=== PATIENT | male | born 1950 | race American Indian/Alaskan Native ===

== ENCOUNTER 2017-04-19 07:09 | Emergency (ER) | payer SELFPAY ==
[2017-04-19] MEDS ORDERED: ASPIRIN PO ONE (07:20)
[2017-04-19 07:23] VITALS: BP 151/88
[2017-04-19 08:11] LABS: Basophils % (Auto) 0.5 % (0.0-1.8); Eosinophils % (Auto) 0.9 % (0.0-4.3); Hematocrit 42.1 % (35.5-45.6); Hemoglobin 14.1 gm/dl (11.8-15.2); Lymphocytes # (Auto) 1.9 K/mm3 (1.2-5.4); Lymphocytes % (Auto) 41.3 % (13.4-35.0); Mean Corpuscular HGB Conc 34 % (32-34); Mean Corpuscular Hemoglobin 29 pg (28-32); Mean Corpuscular Volume 86 fl (84-94); Monocytes # (Auto) 0.5 K/mm3 (0.0-0.8); Monocytes % (Auto) 11.1 % (0.0-7.3); Platelet Count 203 K/mm3 (140-440); Red Blood Count 4.88 M/mm3 (3.65-5.03); Red Cell Distribution Width 13.6 % (13.2-15.2)
[2017-04-19 08:18] LABS: BUN/Creatinine Ratio 11; Blood Urea Nitrogen 9 mg/dL (9-20); Calcium 9.2 mg/dL (8.4-10.2); Hemolysis Index 15
== END 2017-04-19 07:45 | disposition left against medical advice (07) ==
LOC: ED 07:09
DX: R07.89 Other chest pain (principal); Z53.21 Procedure and treatment not carried out due to patient leaving prior to being seen by health care provider
CPT/HCPCS: 36415; 80048; 84484; 85025; 93005; 93010

== ENCOUNTER 2017-06-26 17:39 | Emergency (ER) | payer SELFPAY ==
[2017-06-26 17:51] VITALS: BP 165/119
[2017-06-26 18:23] LABS: Basophils # (Auto) 0.1 K/mm3 (0.0-0.1); Basophils % (Auto) 0.9 % (0.0-1.8); Eosinophils % (Auto) 0.1 % (0.0-4.3); Hematocrit 50.3 % (35.5-45.6); Hemoglobin 16.2 gm/dl (11.8-15.2); Lymphocytes # (Auto) 1.9 K/mm3 (1.2-5.4); Lymphocytes % (Auto) 30.1 % (13.4-35.0); Mean Corpuscular HGB Conc 32 % (32-34); Mean Corpuscular Hemoglobin 28 pg (28-32); Mean Corpuscular Volume 88 fl (84-94); Monocytes # (Auto) 0.7 K/mm3 (0.0-0.8); Monocytes % (Auto) 11.7 % (0.0-7.3); Platelet Count 223 K/mm3 (140-440); Red Blood Count 5.75 M/mm3 (3.65-5.03); Red Cell Distribution Width 13.2 % (13.2-15.2)
[2017-06-26 18:43] LABS: BUN/Creatinine Ratio 15; Blood Urea Nitrogen 16 mg/dL (9-20); Calcium 10.2 mg/dL (8.4-10.2); Hemolysis Index 13
== END 2017-06-26 17:54 | disposition left against medical advice (07) ==
LOC: ED 17:39
DX: R07.9 Chest pain, unspecified (principal); Z53.21 Procedure and treatment not carried out due to patient leaving prior to being seen by health care provider
CPT/HCPCS: 36415; 80048; 83880; 84484; 85025; 93005; 93010

== ENCOUNTER 2017-09-20 03:12 | Emergency (ER) | payer MEDICARE, OTHER ==
[2017-09-20] MEDS ORDERED: ASPIRIN PO ONE (03:54)
[2017-09-20 04:30] LABS: BUN/Creatinine Ratio 17; Blood Urea Nitrogen 20 mg/dL (9-20); Calcium 9.9 mg/dL (8.4-10.2); Hemolysis Index 4
[2017-09-20 04:48] LABS: Hematocrit 42.9 % (35.5-45.6); Hemoglobin 14.9 gm/dl (11.8-15.2); Mean Corpuscular HGB Conc 35 % (32-34); Mean Corpuscular Hemoglobin 30 pg (28-32); Mean Corpuscular Volume 87 fl (84-94); Platelet Count 202 K/mm3 (140-440); Red Blood Count 4.95 M/mm3 (3.65-5.03); Red Cell Distribution Width 13.9 % (13.2-15.2)
[2017-09-20 04:57] LABS: Basophils % (Auto) 0.3 % (0.0-1.8); Eosinophils % (Auto) 0.1 % (0.0-4.3); Lymphocytes % (Auto) 16.4 % (13.4-35.0); Monocytes # (Auto) 0.6 K/mm3 (0.0-0.8); Monocytes % (Auto) 9.9 % (0.0-7.3)
[2017-09-20 06:07] LABS: Amphetamine Screen,Urine PRESUMPTIVE NEGATIVE; Benzodiazepines Screen,Urine PRESUMPTIVE NEGATIVE; Cannabinoid Screen,Urine PRESUMPTIVE NEGATIVE; Methadone Screen,Urine PRESUMPTIVE NEGATIVE; Opiate Screen,Urine PRESUMPTIVE NEGATIVE
[2017-09-20] MEDS ORDERED: NITROSTAT SL ONE (06:23)
--- NOTE | 2017-09-20 06:27 | Emergency Department Report ---
HPI - General Chief Complaint: Chest Pain Time Seen by Provider: 09/20/17 06:10 - HPI HPI: Room 17 The patient is a 67-year-old male presented with a chief complaint of chest pain. The patient states last night while walking he developed a throbbing substernal chest pain that was constant in nature. Patient states he is uncertain if he got short of breath with the chest pain but admits to occasional diaphoresis. Patient denies nausea or vomiting. The patient currently gets his pain score of 2.5/10. The patient admits to cocaine use and states he last used it 2 days ago. The patient states he believes his last cardiac catheterization occurred approximate 4 years ago when he had a cardiac stent placed Location: Chest Duration: Constant since last night Quality: Throbbing Severity: 2.5/10 Modifying factors: [see above] Context: [see above] Mode of transportation: [not driving] ED Past Medical Hx - Past Medical History Hx Hypertension: Yes Hx Heart Attack/AMI: Yes Hx Congestive Heart Failure: Yes Hx COPD: Yes - Surgical History Hx Coronary Stent: Yes (2013) Hx Open Heart Surgery: Yes (2012) - Family History Family history: no significant - Social History Smoking Status: Current Every Day Smoker (1/3 pack per day) Substance Use Type: Cocaine, Marijuana - Medications Home Medications: Home Medications Medication Instructions Recorded Confirmed Last Taken Type AtorvaSTATin [Lipitor] 20 mg PO QHS tablet 03/08/17 Unknown Rx Bisacodyl [Dulcolax suppos] 10 mg OR QDAY PRN supp.rect 03/08/17 Unknown Rx Dibucaine 1% [Nupercainal] 1 applic OR Q6H PRN #2 tube 03/08/17 Unknown Rx Hydrocortisone 2.5% [Proctosol-Hc] 1 applic OR BID #60 tube 03/08/17 Unknown Rx ED Review of Systems ROS: Stated complaint: CHEST PAIN Other details as noted in HPI Constitutional: diaphoresis Eyes: denies: eye pain ENT: denies: throat pain Respiratory: shortness of breath (?) Cardiovascular: chest pain Endocrine: denies: unexplained weight loss Gastrointestinal: denies: nausea, vomiting Genitourinary: denies: dysuria Musculoskeletal: denies: back pain Skin: denies: change in color Neurological: denies: headache Physical Exam - Physical Exam Vital Signs: Vital Signs 09/20/17 09/20/17 09/20/17 03:31 03:46 05:53 Temperature 98.7 F 98.7 F Pulse Rate 113 H 105 H 88 Respiratory 18 16 13 Rate Blood Pressure 149/99 149/99 O2 Sat by Pulse 94 98 Oximetry 09/20/17 06:00 Temperature Pulse Rate 72 Respiratory 16 Rate Blood Pressure 120/86 O2 Sat by Pulse 94 Oximetry Physical Exam: GENERAL: The patient is well-developed well-nourished male sitting on stretcher not appearing to be in acute distress. [] HEENT: Normocephalic. Atraumatic. Extraocular motions are intact. Patient has moist mucous membranes. NECK: Supple. Trachea midline CHEST/LUNGS: Clear to auscultation. There is no respiratory distress noted. HEART/CARDIOVASCULAR: Regular. There is no tachycardia. There is no gallop rub or murmur. ABDOMEN: Abdomen is soft, nontender. Patient has normal bowel sounds. There is no abdominal distention. SKIN: There is no rash. There is no edema. There is no diaphoresis. NEURO: The patient is awake, alert, and oriented. The patient is cooperative. The patient has normal speech MUSCULOSKELETAL: There is no evidence of acute injury. ED Course Vital Signs 09/20/17 09/20/17 09/20/17 03:31 03:46 05:53 Temperature 98.7 F 98.7 F Pulse Rate 113 H 105 H 88 Respiratory 18 16 13 Rate Blood Pressure 149/99 149/99 O2 Sat by Pulse 94 98 Oximetry 09/20/17 06:00 Temperature Pulse Rate 72 Respiratory 16 Rate Blood Pressure 120/86 O2 Sat by Pulse 94 Oximetry ED Medical Decision Making - Lab Data Result diagrams: 09/20/17 04:02 09/20/17 04:02 Laboratory Tests 09/20/17 09/20/17 09/20/17 04:02 04:02 05:46 WBC 6.4 RBC 4.95 Hgb 14.9 Hct 42.9 MCV 87 MCH 30 MCHC 35 H RDW 13.9 Plt Count 202 Lymph % (Auto) 16.4 Villalba % (Auto) 9.9 H Eos % (Auto) 0.1 Baso % (Auto) 0.3 Lymph # 1.0 L [place]alba # 0.6 Eos # 0.0 Baso # 0.0 Seg Neutrophils % 73.3 H Seg Neutrophils # 4.6 Sodium 135 L Potassium 4.3 Chloride 96.8 L Carbon Dioxide 24 Anion Gap 19 BUN 20 Creatinine 1.2 Estimated GFR > 60 BUN/Creatinine Ratio 17 Glucose 123 H Calcium 9.9 Troponin T < 0.010 Urine Opiates Screen Presumptive negative Urine Methadone Screen Presumptive negative Ur Barbiturates Screen Presumptive negative Ur Phencyclidine Scrn Presumptive negative Ur Amphetamines Screen Presumptive negative U Benzodiazepines Scrn Presumptive negative U Marijuana (THC) Screen Presumptive negative - EKG Data -: EKG Interpreted by Me EKG shows normal: sinus rhythm Rate: tachycardia (103 bpm) - EKG Data When compared to previous EKG there are: no significant change Interpretation: unchanged when compared t (06/26/2017), LV[facility] - Radiology Data Radiology results: image reviewed (chest x-ray) interpreted by me: Chest x-ray-no definite focal infiltrates. No pneumothorax - Medical Decision Making I discussed with the patient at length my recommendation for admission to the hospital especially in light of his history of coronary artery disease and cocaine use. Patient verbalized understanding of increased morbidity and/or mortality should he leave the hospital AGAINST MEDICAL ADVICE. - Differential Diagnosis ACS, vasospasm, pericarditis, GERD Critical care attestation.: If time is entered above; I have spent that time in minutes in the direct care of this critically ill patient, excluding procedure time. ED Disposition Clinical Impression: Chest pain, Cocaine abuse Disposition: DC-07 LEFT AGAINST MED ADVICE Is pt being admited?: No Does the pt Need Aspirin: No Condition: Undetermined Instructions: Chest Pain (ED) Referrals: PRIMARY CARE, [Primary Care Provider] - 3-5 Days Time of Disposition: 06:48 (patient leaving AMA)
[2017-09-20 06:34] VITALS: BP 127/80
[2017-09-20] MEDS ORDERED: ASPIRIN ONE (06:34)
[2017-09-20 06:58] LABS: Cocaine Screen,Urine PRESUMPTIVE POSITIVE
--- NOTE | 2017-09-20 07:08 | XRay Report ---
FINAL REPORT EXAM: XR CHEST 1V AP HISTORY: chest pain TECHNIQUE: AP portable view(s) of the chest obtained. PRIORS: 03/05/2017 FINDINGS: No mediastinal shift. Cardiac silhouette is not enlarged. Overlying sternotomy wires. Diffuse interstitial prominence. No pneumothorax, effusion, or focal pulmonary opacity identified. No acute skeletal findings. IMPRESSION: No acute pulmonary finding identified.
== END 2017-09-20 06:53 | disposition left against medical advice (07) ==
LOC: ED 03:12
DX: R07.89 Other chest pain (principal); F14.10 Cocaine abuse, uncomplicated; I11.0 Hypertensive heart disease with heart failure; I50.9 Heart failure, unspecified; I25.2 Old myocardial infarction; J44.9 Chronic obstructive pulmonary disease, unspecified; F17.200 Nicotine dependence, unspecified, uncomplicated; F12.10 Cannabis abuse, uncomplicated; Z95.1 Presence of aortocoronary bypass graft
CPT/HCPCS: 36415; 71045; 80048; 80307; 84484; 85025; 93005; 93010; 99285

== ENCOUNTER 2017-11-26 20:10 | Inpatient (IN) | payer MEDICARE, OTHER ==
[2017-11-26] MEDS ORDERED: ASPIRIN PO ONE (21:10)
[2017-11-26] MEDS ORDERED: NITROSTAT SL ONE (21:10)
[2017-11-26] MEDS ORDERED: TYLENOL PO ONE (21:29)
[2017-11-26] MEDS ORDERED: ATIVAN IV ONE (21:40)
[2017-11-26 21:50] LABS: INR 1.4 (0.87-1.13)
[2017-11-26 21:51] LABS: Partial Thromboplastin Time 27.8 Sec. (24.2-36.6)
[2017-11-26 21:52] LABS: Hematocrit 48.2 % (35.5-45.6); Hemoglobin 15.7 gm/dl (11.8-15.2); Mean Corpuscular HGB Conc 33 % (32-34); Mean Corpuscular Hemoglobin 29 pg (28-32); Mean Corpuscular Volume 90 fl (84-94); Platelet Count 185 K/mm3 (140-440); Red Blood Count 5.35 M/mm3 (3.65-5.03)
[2017-11-26 21:56] LABS: Bilirubin,Urine NEG (Negative); Blood,Urine NEG (Negative); Color,Urine Amber (Yellow); Mucus,Urine 2+ /HPF; Sperm,Urine 3+ /HPF (NP)
--- NOTE | 2017-11-26 21:56 | XRay Report ---
FINAL REPORT PROCEDURE: XR CHEST 1V AP TECHNIQUE: Chest radiograph anteroposterior view. CPT 97262 HISTORY: chest pain COMPARISON: 09/20/2017 FINDINGS: Heart: Normal. There has been open heart surgery. Mediastinum/Vessels: Normal. Lungs/Pleural space: There is advanced COPD. There are no infiltrates, effusions or pneumothoraces.. Bony thorax: No acute osseous abnormality. Life support devices: None. IMPRESSION: No acute cardiopulmonary abnormality.
[2017-11-26 22:05] LABS: BUN/Creatinine Ratio 11; Blood Urea Nitrogen 13 mg/dL (9-20); Calcium 10.4 mg/dL (8.4-10.2); Hemolysis Index 8
[2017-11-26 22:12] LABS: Amphetamine Screen,Urine PRESUMPTIVE NEGATIVE; Benzodiazepines Screen,Urine PRESUMPTIVE NEGATIVE; Cannabinoid Screen,Urine PRESUMPTIVE NEGATIVE; Methadone Screen,Urine PRESUMPTIVE NEGATIVE; Opiate Screen,Urine PRESUMPTIVE NEGATIVE
[2017-11-26 22:44] LABS: Cocaine Screen,Urine PRESUMPTIVE POSITIVE
--- NOTE | 2017-11-26 23:22 | Emergency Department Report ---
HPI - General Chief Complaint: Dizziness Time Seen by Provider: 11/26/17 21:01 - HPI HPI: The patient is a 67-year-old male who presents for evaluation of chest pain. The patient reports constant midsternal moderate in severity chest pain for the past one day, exacerbated with coughing. He admits to binging on cocaine, and concern for heart injury due to his drug use. The patient denies trauma to chest, fever, hemoptysis, unilateral leg swelling, recent immobilization, ED Past Medical Hx - Past Medical History Hx Hypertension: Yes Hx Heart Attack/AMI: Yes Hx Congestive Heart Failure: Yes Hx COPD: Yes - Surgical History Hx Coronary Stent: Yes (2013) Hx Open Heart Surgery: Yes (2012) Additional Surgical History: heart Bypass - Social History Smoking Status: Current Every Day Smoker Substance Use Type: Cocaine - Medications Home Medications: Home Medications Medication Instructions Recorded Confirmed Last Taken Type AtorvaSTATin [Lipitor] 20 mg PO QHS tablet 03/08/17 Unknown Rx Bisacodyl [Dulcolax suppos] 10 mg ID QDAY PRN supp.rect 03/08/17 Unknown Rx Dibucaine 1% [Nupercainal] 1 applic ID Q6H PRN #2 tube 03/08/17 Unknown Rx Hydrocortisone 2.5% [Proctosol-Hc] 1 applic ID BID #60 tube 03/08/17 Unknown Rx ED Review of Systems ROS: Stated complaint: CHEST PAIN Other details as noted in HPI Constitutional: denies: fever ENT: denies: throat or neck pain Respiratory: denies: cough, reports shortness of breath Cardiovascular: Reports chest pain Endocrine: denies unexplained weight loss or gain Gastrointestinal: denies: abdominal pain, nausea Genitourinary: denies: dysuria Musculoskeletal: denies: leg swelling Skin: denies: rash Neurological: denies: headache Hematological/Lymphatic: denies: easy bleeding or easy bruising Psych: denies sadness or hopelessness Physical Exam - Physical Exam Vital Signs: Vital Signs 11/26/17 11/26/17 11/26/17 20:23 20:34 20:46 Temperature 98.3 F Pulse Rate 69 70 Respiratory 17 16 Rate Blood Pressure 94/67 O2 Sat by Pulse 97 92 97 Oximetry 11/26/17 11/26/17 11/26/17 21:00 21:57 22:00 Temperature Pulse Rate 74 73 Respiratory 11 L 20 Rate Blood Pressure 94/59 94/59 116/86 O2 Sat by Pulse 100 95 96 Oximetry Physical Exam: General: well-nourished, well-developed, no acute distress Head: Normocephalic, atraumatic Eyes: normal sclera ENT: Mucous membranes are pink and moist Neck: trachea midline, neck supple, No neck stiffness, no cervical adenopathy Respiratory: Breath sounds equal bilaterally, no wheezing, rales, or rhonchi Cardio: S1 and S2 present, no murmurs, rubs, gallops, capillary refill is brisk Abdomen: Normoactive bowel sounds, soft abdomen, no rigidity, no guarding or rebound tenderness Chest WALL/Back: No tenderness to palpation of the chest wall, no CVA tenderness with percussion Musc: No pitting edema Skin: Diaphoretic Neuro: no facial drooping, normal speech Psych: Normal affect ED Course Vital Signs 11/26/17 11/26/17 11/26/17 20:23 20:34 20:46 Temperature 98.3 F Pulse Rate 69 70 Respiratory 17 16 Rate Blood Pressure 94/67 O2 Sat by Pulse 97 92 97 Oximetry 11/26/17 11/26/17 11/26/17 21:00 21:57 22:00 Temperature Pulse Rate 74 73 Respiratory 11 L 20 Rate Blood Pressure 94/59 94/59 116/86 O2 Sat by Pulse 100 95 96 Oximetry ED Medical Decision Making - Lab Data Result diagrams: 11/26/17 21:26 11/26/17 21:26 - Medical Decision Making The patient was seen and examined by myself. The patient is placed on a secured entrance monitor and continuous pulse ox. On initial evaluation, the patient was found to be in no distress. EKG was negative for findings suggestive of acute cardiac infarct. The patient is given pain medicine. The patient is given an aspirin and a nitroglycerin tablet. Labs and imaging are obtained. Chest x-ray is negative for pneumothorax, focal consolidation, pulmonary vascular congestion, pleural effusion, or other obvious acute cardiopulmonary disease process. Lab results were non-revealing including negative troponin, WBC, hemoglobin, hematocrit, electrolytes, renal function. The patient was reevaluated and reported that their symptoms were improved. As the patient has chest pain and risk factors for development of acute coronary event, the patient will be admitted for close cardiopulmonary monitoring, serial troponins , and evaluation by cardiology. The physician on-call was contacted. They presented to the emergency department and evaluated the patient. They agreed to admit the patient. The ED admit order was placed. The patient was admitted in guarded condition. Critical care attestation.: If time is entered above; I have spent that time in minutes in the direct care of this critically ill patient, excluding procedure time. ED Disposition Clinical Impression: Acute chest pain, Cocaine abuse Disposition: DC09 OP ADMIT IP TO THIS HOSP Is pt being admited?: Yes Does the pt Need Aspirin: Yes Condition: Fair Time of Disposition: 23:22
[2017-11-27] MEDS ORDERED: SODIUM CHLORIDE FLUSH SYRINGE 10 ML IV PRN (00:03)
[2017-11-27] MEDS ORDERED: MORPHINE IV PRN (00:03)
[2017-11-27] MEDS ORDERED: TYLENOL PO PRN (00:03)
[2017-11-27] MEDS ORDERED: ZOFRAN IV PRN (00:03)
[2017-11-27] MEDS ORDERED: NITROSTAT SL PRN (00:11)
[2017-11-27 00:44] VITALS: BP 100/71
[2017-11-27] MEDS ORDERED: SENOKOT PO SCH (01:00)
[2017-11-27] MEDS: NITRO-BID 2% TP SCH ×2 (01:30→06:43)
--- NOTE | 2017-11-27 04:06 | History and Physical Report ---
<RODY BRADY - Last Filed: 11/27/17 03:41> History of Present Illness Date of examination: 11/27/17 Date of admission: 11/27/17 00:03 Chief complaint: 11/27/2017 History of present illness: Pt is a 67-year-old male with PMHx of CHF, COPD, CAD/DC s/p stent placement and CABG 2012 who presents to the ER for c/p chest pain for 1 day. Pt states the the chest pain started suddenly, it is a constant, moderate pain, located in the midsternal area which exacerbated with coughing. Pt admits to 3 days of cocaine binge before the pain started, he reports anxiety and palpitation due to cocaine use, he denies SOB, denies diaphoresis, denies nausea, denies vomiting, denies headache or dizziness, denies fever or chills. Pt has an extensive history of heart disease, prior DC and heart surgery, his EKG shows LVH, non-specific T abnormalities, ST elevation lateral leads, consider anterior DC, first CE was negative, pt is admitted for further evaluation and treatment. Medications and Allergies Allergies Allergy/AdvReac Type Severity Reaction Status Date / Time bee venom protein (honey bee) Allergy Shortness Verified 06/26/17 17:46 of Breath iv contrast Allergy Shortness Uncoded 06/26/17 17:46 of Breath Home Medications Medication Instructions Recorded Confirmed Last Taken Type AtorvaSTATin [Lipitor] 20 mg PO QHS tablet 03/08/17 Unknown Rx Bisacodyl [Dulcolax suppos] 10 mg NM QDAY PRN supp.rect 03/08/17 Unknown Rx Dibucaine 1% [Nupercainal] 1 applic NM Q6H PRN #2 tube 03/08/17 Unknown Rx Hydrocortisone 2.5% [Proctosol-Hc] 1 applic NM BID #60 tube 03/08/17 Unknown Rx Active Meds: Active Medications Acetaminophen (Tylenol) 650 mg PO Q4H PRN PRN Reason: Pain MILD(1-3)/Fever >100.5/LYMAN Aspirin (Ecotrin) 325 mg PO QDAY RADHA Morphine Sulfate (Morphine) 2 mg IV Q4H PRN PRN Reason: Pain, Moderate (4-6) Nitroglycerin (Nitrostat) 0.4 mg SL Q5M PRN PRN Reason: Chest Pain Nitroglycerin (Nitro-Bid 2%) 0.5 inch TP QIDNTG RADHA; Protocol Last Admin: 11/27/17 01:30 Dose: Not Given Ondansetron HCl (Zofran) 4 mg IV Q8H PRN PRN Reason: Nausea And Vomiting Senna (Senokot) 8.6 mg PO Q12HR RADHA Last Admin: 11/27/17 02:06 Dose: Not Given Sodium Chloride (Sodium Chloride Flush Syringe 10 Ml) 10 ml IV BID RADHA Sodium Chloride (Sodium Chloride Flush Syringe 10 Ml) 10 ml IV PRN PRN PRN Reason: LINE FLUSH Exam - Constitutional Vitals: Temp Pulse Resp BP Pulse Ox 98.3 F 75 97 H 100/71 96 11/26/17 20:23 11/27/17 02:00 11/27/17 00:43 11/27/17 00:43 11/27/17 00:16 Results - Labs CBC & Chem 7: 11/26/17 21:26 11/26/17 21:26 Labs: Laboratory Last Values WBC 6.2 K/mm3 (4.5-11.0) 11/26/17 21:26 RBC 5.35 M/mm3 (3.65-5.03) H 11/26/17 21:26 Hgb 15.7 gm/dl (11.8-15.2) H 11/26/17 21:26 Hct 48.2 % (35.5-45.6) H 11/26/17 21:26 MCV 90 fl (84-94) 11/26/17 21:26 MCH 29 pg (28-32) 11/26/17 21:26 MCHC 33 % (32-34) 11/26/17 21:26 RDW 14.0 % (13.2-15.2) 11/26/17 21:26 Plt Count 185 K/mm3 (140-440) 11/26/17 21:26 Lymph % (Auto) Compensation Expert 11/26/17 21:26 [place] % (Auto) Compensation Expert 11/26/17 21:26 Eos % (Auto) Compensation Expert 11/26/17 21:26 Baso % (Auto) Compensation Expert 11/26/17 21:26 Lymph # Compensation Expert 11/26/17 21:26 [place] # Compensation Expert 11/26/17 21:26 Eos # Compensation Expert 11/26/17 21:26 Baso # Compensation Expert 11/26/17 21:26 Seg Neutrophils % Compensation Expert 11/26/17 21:26 Seg Neutrophils # Compensation Expert 11/26/17 21:26 PT 17.7 Sec. (12.2-14.9) H 11/26/17 21:26 INR 1.40 (0.87-1.13) H 11/26/17 21:26 APTT 27.8 Sec. (24.2-36.6) 11/26/17 21:26 Sodium 138 mmol/L (137-145) 11/26/17 21:26 Potassium 4.3 mmol/L (3.6-5.0) 11/26/17 21:26 Chloride 98.4 mmol/L (98-107) 11/26/17 21:26 Carbon Dioxide 25 mmol/L (22-30) 11/26/17 21:26 Anion Gap 19 mmol/L 11/26/17 21:26 BUN 13 mg/dL (9-20) 11/26/17 21:26 Creatinine 1.2 mg/dL (0.8-1.5) 11/26/17 21:26 Estimated GFR > 60 ml/min 11/26/17 21: BUN/Creatinine Ratio 11 % 11/26/17 21:26 Glucose 85 mg/dL (75-100) 11/26/17 21: Calcium 10.4 mg/dL (8.4-10.2) H 11/26/17 21:26 Troponin T < 0.010 ng/mL (0.00-0.029) 11/27/17 00:17 Urine Color Taylor (Yellow) 11/26/17 Unknown Urine Turbidity Slightly-cloudy (Clear) 11/26/17 Unknown Urine pH 5.0 (5.0-7.0) 11/26/17 Unknown Ur Specific [place] 1.030 (1.003-1.030) 11/26/17 Unknown Urine Protein 100 mg/dl mg/dL (Negative) 11/26/17 Unknown Urine Glucose (UA) Neg mg/dL (Negative) 11/26/17 Unknown Urine Ketones Neg mg/dL (Negative) 11/26/17 Unknown Urine Blood Neg (Negative) 11/26/17 Unknown Urine Nitrite Neg (Negative) 11/26/17 Unknown Urine Bilirubin Neg (Negative) 11/26/17 Unknown Urine Urobilinogen 4.0 mg/dL (<2.0) 11/26/17 Unknown Ur Leukocyte Esterase Neg (Negative) 11/26/17 Unknown Urine WBC (Auto) 2.0 /HPF (0.0-6.0) 11/26/17 Unknown Urine RBC (Auto) 4.0 /HPF (0.0-6.0) 11/26/17 Unknown Urine Mucus 2+ /HPF 11/26/17 Unknown Urine Sperm 3+ /HPF (OUTREACH LIAISON) 11/26/17 Unknown Urine Opiates Screen Presumptive negative 11/26/17 Unknown Urine Methadone Screen Presumptive negative 11/26/17 Unknown Ur Barbiturates Screen Presumptive negative 11/26/17 Unknown Ur Phencyclidine Scrn Presumptive negative 11/26/17 Unknown Ur Amphetamines Screen Presumptive negative 11/26/17 Unknown U Benzodiazepines Scrn Presumptive negative 11/26/17 Unknown Urine Cocaine Screen Presumptive positive 11/26/17 Unknown U Marijuana (THC) Screen Presumptive negative 11/26/17 Unknown Drugs of Abuse Note Disclamer 11/26/17 Unknown Assessment and Plan Assessment and plan: 67 year old male with h/o CAD presents with CP after cocaine use 1. Chest pain (likely due to cocaine use) 2. Cocaine use disorder 3. CAD/CABG 4. CHF (stable) 5. Erythrocytosis (likely due to dehydration) 6. Dehydration 7. COPD (stable) 8. Coagulapathy 9. Mild elevated serum calcium level Plan Admit to [facility] for chest pain Continue CE Q6hr x2 more Nitro PRN for chest pain Repeat EKG in am Morphine PRN for chest pain Ativan PRN for anxiety/restlessness Resume home meds Gentle hydration Stress test in am Further plan per hospital course Pt's condition and plan of care of care discussed with the attending Advance Directives: Yes VTE prophylaxis?: Mechanical Plan of care discussed with patient/family: Yes <MELINA GARNER - Last Filed: 11/27/17 21:40> History of Present Illness Date of admission: 11/27/17 00:03 Chief complaint: Chest Pain Exam - Constitutional Vitals: Temp Pulse Resp BP Pulse Ox 97.9 F 78 20 100/71 96 11/27/17 01:32 11/27/17 02:00 11/27/17 01:32 11/27/17 06:43 11/27/17 02:00 Results - Labs CBC & Chem 7: 11/26/17 21:26 11/26/17 21:26 Labs: Laboratory Last Values WBC 6.2 K/mm3 (4.5-11.0) 11/26/17 21:26 RBC 5.35 M/mm3 (3.65-5.03) H 11/26/17 21:26 Hgb 15.7 gm/dl (11.8-15.2) H 11/26/17 21:26 Hct 48.2 % (35.5-45.6) H 11/26/17 21:26 MCV 90 fl (84-94) 11/26/17 21:26 MCH 29 pg (28-32) 11/26/17 21:26 MCHC 33 % (32-34) 11/26/17 21:26 RDW 14.0 % (13.2-15.2) 11/26/17 21:26 Plt Count 185 K/mm3 (140-440) 11/26/17 21:26 Lymph % (Auto) Compensation Expert 11/26/17 21:26 [place] % (Auto) Compensation Expert 11/26/17 21:26 Eos % (Auto) Compensation Expert 11/26/17 21:26 Baso % (Auto) Compensation Expert 11/26/17 21:26 Lymph # Compensation Expert 11/26/17 21:26 [place] # Compensation Expert 11/26/17 21:26 Eos # Compensation Expert 11/26/17 21:26 Baso # Compensation Expert 11/26/17 21:26 Seg Neutrophils % Compensation Expert 11/26/17 21:26 Seg Neutrophils # Compensation Expert 11/26/17 21:26 PT 17.7 Sec. (12.2-14.9) H 11/26/17 21:26 INR 1.40 (0.87-1.13) H 11/26/17 21:26 APTT 27.8 Sec. (24.2-36.6) 11/26/17 21:26 Sodium 138 mmol/L (137-145) 11/26/17 21:26 Potassium 4.3 mmol/L (3.6-5.0) 11/26/17 21:26 Chloride 98.4 mmol/L (98-107) 11/26/17 21:26 Carbon Dioxide 25 mmol/L (22-30) 11/26/17 21:26 Anion Gap 19 mmol/L 11/26/17 21:26 BUN 13 mg/dL (9-20) 11/26/17 21:26 Creatinine 1.2 mg/dL (0.8-1.5) 11/26/17 21:26 Estimated GFR > 60 ml/min 11/26/17 21:26 BUN/Creatinine Ratio 11 % 11/26/17 21:26 Glucose 85 mg/dL (75-100) 11/26/17 21:26 Calcium 10.4 mg/dL (8.4-10.2) H 11/26/17 21:26 Troponin T < 0.010 ng/mL (0.00-0.029) 11/27/17 05:20 Urine Color Taylor (Yellow) 11/26/17 Unknown Urine Turbidity Slightly-cloudy (Clear) 11/26/17 Unknown Urine pH 5.0 (5.0-7.0) 11/26/17 Unknown Ur Specific [place] 1.030 (1.003-1.030) 11/26/17 Unknown Urine Protein 100 mg/dl mg/dL (Negative) 11/26/17 Unknown Urine Glucose (UA) Neg mg/dL (Negative) 11/26/17 Unknown Urine Ketones Neg mg/dL (Negative) 11/26/17 Unknown Urine Blood Neg (Negative) 11/26/17 Unknown Urine Nitrite Neg (Negative) 11/26/17 Unknown Urine Bilirubin Neg (Negative) 11/26/17 Unknown Urine Urobilinogen 4.0 mg/dL (<2.0) 11/26/17 Unknown Ur Leukocyte Esterase Neg (Negative) 11/26/17 Unknown Urine WBC (Auto) 2.0 /HPF (0.0-6.0) 11/26/17 Unknown Urine RBC (Auto) 4.0 /HPF (0.0-6.0) 11/26/17 Unknown Urine Mucus 2+ /HPF 11/26/17 Unknown Urine Sperm 3+ /HPF (OUTREACH LIAISON) 11/26/17 Unknown Urine Opiates Screen Presumptive negative 11/26/17 Unknown Urine Methadone Screen Presumptive negative 11/26/17 Unknown Ur Barbiturates Screen Presumptive negative 11/26/17 Unknown Ur Phencyclidine Scrn Presumptive negative 11/26/17 Unknown Ur Amphetamines Screen Presumptive negative 11/26/17 Unknown U Benzodiazepines Scrn Presumptive negative 11/26/17 Unknown Urine Cocaine Screen Presumptive positive 11/26/17 Unknown U Marijuana (THC) Screen Presumptive negative 11/26/17 Unknown Drugs of Abuse Note Disclamer 11/26/17 Unknown Assessment and Plan Plan of care discussed with patient/family: Yes
[2017-11-27] MEDS ORDERED: SODIUM CHLORIDE FLUSH SYRINGE 10 ML IV SCH (10:00)
--- NOTE | 2017-11-27 14:22 | Discharge Summary ---
Providers - Providers Date of Admission: 11/27/17 00:03 Date of discharge: 11/27/17 Attending physician: SAAD ALBRECHT 11/27/17 Consult to Cardiac Rehabilitation [CONS] Routine Reason For Exam: Phase I Primary care physician: CRATE REPAIRER Hospitalization Condition: Fair Hospital course: Went AMA Dictated discharge summary Disposition: DC-07 LEFT AGAINST MED ADVICE Core Measure Documentation - Palliative Care Palliative Care/ Comfort Measures: Not Applicable - Core Measures Any of the following diagnoses?: none Exam - Constitutional Vitals: Temp Pulse Resp BP Pulse Ox 97.9 F 78 20 100/71 96 11/27/17 01:32 11/27/17 02:00 11/27/17 01:32 11/27/17 06:43 11/27/17 02:00 General appearance: Present: no acute distress, well-nourished - EENT Eyes: Present: PERRL ENT: hearing intact, clear oral mucosa - Neck Neck: Present: supple, normal ROM - Respiratory Respiratory effort: normal Respiratory: bilateral: CTA - Cardiovascular Heart rate: 78 Rhythm: regular Heart Sounds: Present: S1 & S2. Absent: rub, click - Extremities Extremities: pulses symmetrical, No edema Peripheral Pulses: within normal limits - Abdominal General gastrointestinal: Present: soft, non-tender, non-distended, normal bowel sounds Male genitourinary: Present: normal - Rectal Rectal Exam: deferred - Integumentary Integumentary: Present: clear, warm, dry - Musculoskeletal Musculoskeletal: gait normal, strength equal bilaterally - Psychiatric Psychiatric: appropriate mood/affect, intact judgment & insight - Neurologic Neurologic: CNII-XII intact, moves all extremities - Allied Health Allied health notes reviewed: nursing, case management Plan Activity: no restrictions Diet: low fat, low cholesterol, low salt, diabetic Follow up with: PRIMARY CARE, [Primary Care Provider] - 3-5 Days Forms: AMA Form
--- NOTE | 2017-11-27 22:02 | Discharge Summary ---
The patient was admitted this morning at 11/27/2017, at 3:41 a.m. HOSPITAL COURSE: The patient is a 67-year-old male with past medical history of CHF, COPD, coronary artery disease, status post stent placement, and CABG, comes to the ER for chest pain of 1-day duration, intermittent in nature. Moderate pain. The patient also uses cocaine. The patient was admitted for chest pain evaluation. Also, coronary artery disease, COPD, and dehydration. The patient was supposed to get a Lexiscan this morning. The patient refused to get and wanted to sign AMA. The patient knew the risks, signed AMA form. The patient's drug screen was positive for cocaine. Electrolytes were normal. Blood count, hemoglobin of 15.7 and hematocrit 48.2. The patient was counseled about cocaine use and the need for stress test. He refuses to do it. DISCHARGE DIAGNOSES: 1. Chest pain, possible coronary spasm secondary to cocaine use. 2. Coronary artery disease. 3. Hypertension. 4. Hyperlipidemia. JOB# [id number] STACEY/MAR
[2017-11-28] MEDS ORDERED: ECOTRIN PO SCH (10:00)
== END 2017-11-27 09:04 | disposition left against medical advice (07) | DRG 303 ==
LOC: ED 20:10 → 4A 11-27 00:03
PROVIDERS: ADMIT Internal Medicine; ATTEND Internal Medicine
DX: I25.111 Atherosclerotic heart disease of native coronary artery with angina pectoris with documented spasm (principal); D68.9 Coagulation defect, unspecified; I50.9 Heart failure, unspecified; J44.9 Chronic obstructive pulmonary disease, unspecified; F41.9 Anxiety disorder, unspecified; D75.1 Secondary polycythemia; E86.0 Dehydration; I11.0 Hypertensive heart disease with heart failure; F17.200 Nicotine dependence, unspecified, uncomplicated; F14.90 Cocaine use, unspecified, uncomplicated; E78.5 Hyperlipidemia, unspecified; I25.2 Old myocardial infarction; Z95.5 Presence of coronary angioplasty implant and graft; Z95.1 Presence of aortocoronary bypass graft; Z91.041 Radiographic dye allergy status; Z91.030 Bee allergy status; Z79.899 Other long term (current) drug therapy
CPT/HCPCS: 36415; 71045; 80048; 80307; 81001; 84484; 85025; 85610; 85730; 93005; 93010; 96374; J2060

== ENCOUNTER 2018-07-25 01:21 | Emergency (ER) | payer MEDICARE, OTHER ==
[2018-07-25] MEDS ORDERED: SOLU-Medrol IM ONE (03:47)
[2018-07-25] MEDS ORDERED: BENADRYL PO ONE (03:47)
--- NOTE | 2018-07-25 04:36 | XRay Report ---
PROCEDURE: XR NECK SOFT TISSUE TECHNIQUE: AP and lateral views of the neck HISTORY: feels like throat closing COMPARISONS: None FINDINGS: Tracheal air column appears patent. Prevertebral soft tissues are within normal limits. No radiodense foreign body. Sequela of open heart surgery are noted. The cervical spine appears intact with diffus e moderate sequela of disc degeneration. IMPRESSION: Consider airway management as clinically warranted. The tracheal air column appears patent and there is no focal soft tissue abnormality identified in the neck. CT with contrast could be obtained for mo re sensitive and specific evaluation. This document is electronically signed by Paulino Tran MD., July 25 2018 05:34:57 AM ET
--- NOTE | 2018-07-25 04:38 | Emergency Department Report ---
ED General Adult HPI - General Chief complaint: Dyspnea/Respdistress Stated complaint: THROAT IS CLOSING Time Seen by Provider: 07/25/18 03:29 Source: patient Mode of arrival: Ambulatory Limitations: No Limitations - History of Present Illness Initial comments: Pt is a 67 yo male who presents to the ED with c/o throat discomfort that began two days ago. He states that he has discomfort with swallowing and states he has the sensation that "his throat is closing." He is tolerating his secretions with no difficulty, he has no SOB, no wheezing. he denies any new food, drinks, medicine, lotion, soap, detergents or anything new. the patient denies anything getting stuck in the throat. he states he has an allergy to bees but did not get stung by a bee. Pt states he has a PMHx of CAD. - Related Data Previous Rx's Medication Instructions Recorded Last Taken Type Aspirin EC 81 mg PO DAILY #30 tablet 02/15/18 Unknown Rx AtorvaSTATin [Lipitor] 40 mg PO QHS #30 tablet 02/15/18 Unknown Rx Folic Acid [Folvite] 1 mg PO QDAY #30 tablet 02/15/18 Unknown Rx Multivitamin Tab [Multiple Vitamin 1 each PO QDAY #30 tablet 02/15/18 Unknown Rx TAB (Theragran)] Nicotine [Habitrol] 21 mg TD QDAY PRN #15 patch 02/15/18 Unknown Rx Thiamine [Vitamin B-1] 100 mg PO QDAY #30 tablet 02/15/18 Unknown Rx Nystas/Diphen/Xyl Visc/Mylanta 30 ml MM BID PRN #1 udc 07/25/18 Unknown Rx [Magic Mouthwash] Allergies Allergy/AdvReac Type Severity Reaction Status Date / Time bee venom protein (honey bee) Allergy Shortness Verified 07/25/18 01:25 of Breath iv contrast Allergy Shortness Uncoded 06/26/17 17:46 of Breath ED Review of Systems ROS: Stated complaint: THROAT IS CLOSING Other details as noted in HPI Comment: All other systems reviewed and negative ED Past Medical Hx - Past Medical History Previous Medical History?: Yes Hx Hypertension: Yes Hx Heart Attack/AMI: Yes Hx Congestive Heart Failure: Yes Hx Diabetes: No Hx Asthma: No Hx COPD: Yes - Surgical History Past Surgical History?: Yes Hx Coronary Stent: Yes (2013) Hx Open Heart Surgery: Yes (2012) Additional Surgical History: heart bypass with 3 stents, - Social History Smoking Status: Never Smoker Substance Use Type: None - Medications Home Medications: Home Medications Medication Instructions Recorded Confirmed Last Taken Type Aspirin EC 81 mg PO DAILY #30 tablet 02/15/18 Unknown Rx AtorvaSTATin [Lipitor] 40 mg PO QHS #30 tablet 02/15/18 Unknown Rx Folic Acid [Folvite] 1 mg PO QDAY #30 tablet 02/15/18 Unknown Rx Multivitamin Tab [Multiple Vitamin 1 each PO QDAY #30 tablet 02/15/18 Unknown Rx TAB (Theragran)] Nicotine [Habitrol] 21 mg TD QDAY PRN #15 patch 02/15/18 Unknown Rx Thiamine [Vitamin B-1] 100 mg PO QDAY #30 tablet 02/15/18 Unknown Rx Nystas/Diphen/Xyl Visc/Mylanta 30 ml MM BID PRN #1 udc 07/25/18 Unknown Rx [Magic Mouthwash] ED Physical Exam - General Limitations: No Limitations General appearance: alert, in no apparent distress - Head Head exam: Present: atraumatic, normocephalic - Eye Eye exam: Present: normal appearance - ENT ENT exam: Present: normal orophraynx, other (uvula is midline, no angioedema, no tongue edema, no uvula edema, no tonsillar hypertrophy, no tonsillar exudates, no oropharynx erythema ) - Respiratory Respiratory exam: Present: normal lung sounds bilaterally, other (speaking in full sentences with no difficulty ). Absent: respiratory distress, wheezes, rales, rhonchi, stridor, chest wall tenderness, accessory muscle use, decreased breath sounds, prolonged expiratory - Neurological Exam Neurological exam: Present: alert, oriented X3 - Psychiatric Psychiatric exam: Present: normal affect, normal mood - Skin Skin exam: Present: warm, dry, intact ED Course Vital Signs 07/25/18 07/25/18 07/25/18 01:26 01:27 04:50 Temperature 98.2 F 98.2 F Pulse Rate 86 79 82 Respiratory 18 18 20 Rate Blood Pressure 145/106 Blood Pressure 145/106 155/110 [Left] O2 Sat by Pulse 97 97 98 Oximetry 07/25/18 06:52 Temperature 98.4 F Pulse Rate 80 Respiratory 20 Rate Blood Pressure Blood Pressure 150/101 [Left] O2 Sat by Pulse 98 Oximetry ED Medical Decision Making - Medical Decision Making Pt is a 67 yo male who presents to the ED with c/o throat discomfort that began two days ago. He states that he has discomfort with swallowing and states he has the sensation that "his throat is closing." He is tolerating his secretions with no difficulty, he has no SOB, no wheezing. he denies any new food, drinks, medicine, lotion, soap, detergents or anything new. the patient denies anything getting stuck in the throat. he states he has an allergy to bees but did not get stung by a bee. Pt states he has a PMHx of CAD. on exam pt has no edema of the uvula, no edema of the tongue, no angioedema, clear breath sounds bilaterally with good air movement, no wheezing, no hoarseness of the voice, swallowing secretions with no difficulty, drinking water with no difficulty, no tonsillar hypertrophy, no tonsillar exudates, no posterior oropharynx erythema. pt was giv en solumedrol and benadryl and states he is feeling much better. pt is requesting a peanut butter and jelly sandwich. discussed with pt the elevation in his blood pressure, he denies having any symptoms. discussed the importance of follow up with a primary care doctor to have further evaluation of his pressure and management of the blood pressure. pt verbalized understanding. Critical care attestation.: If time is entered above; I have spent that time in minutes in the direct care of this critically ill patient, excluding procedure time. ED Disposition Clinical Impression: Pain in throat, Elevated blood pressure reading Disposition: TO HOME OR SELFCARE Is pt being admited?: No Does the pt Need Aspirin: No Condition: Stable Instructions: Pharyngitis (ED) Additional Instructions: Please use medication as prescribed as needed for throat discomfort. follow up with your primary care doctor in the next 2-3 days for reevaluation and to discuss the elevation in your blood pressure. given list of community resources. return to the emergency room immediately for any new or worsening symptoms. Prescriptions: Nystas/Diphen/Xyl Visc/Mylanta [Magic Mouthwash] 30 ml MM BID PRN #1 udc PRN Reason: Sore Throat Referrals: NASH CERON MD [Primary Care Provider] - 2-3 Days [facility] [Provider Group] - 2-3 Days [facility] [Outside] - 2-3 Days Time of Disposition: 05:17 Print Language: MONGOLIAN
[2018-07-25 06:53] VITALS: BP 150/101
== END 2018-07-25 06:57 | disposition home or self-care (01) ==
LOC: ED 01:21
DX: I11.0 Hypertensive heart disease with heart failure (principal); I50.9 Heart failure, unspecified; J44.9 Chronic obstructive pulmonary disease, unspecified; Z95.1 Presence of aortocoronary bypass graft; Z91.030 Bee allergy status; Z91.041 Radiographic dye allergy status; Z79.82 Long term (current) use of aspirin
CPT/HCPCS: 70360; 96372; 99283; J2930

== ENCOUNTER 2018-11-21 16:51 | Inpatient (IN) | payer MEDICARE ==
[2018-11-21] MEDS ORDERED: SODIUM CHLORIDE 0.9% 1000 ML 1,000 ML IV ONE (17:11)
[2018-11-21] MEDS ORDERED: SODIUM CHLORIDE 0.9% 500 ML 500 ML IV ONE (17:15)
--- NOTE | 2018-11-21 18:06 | Cat Scan Report ---
CT HEAD WITHOUT CONTRAST INDICATION / CLINICAL INFORMATION: Syncope with head injury. TECHNIQUE: All CT scans at this location are performed using CT dose reduction for ALARA by means of automated e xposure control. COMPARISON: Head CT 03/05/2017 FINDINGS: HEMORRHAGE: No evidence of intracranial hemorrhage or extra-axial fluid collection. EXTRA-AXIAL SPACES: Cortical sulci, sylvian fissures and basilar cisterns have an unremarkable appear ance. VENTRICULAR SYSTEM: The ventricular system is of normal size and configuration. CEREBRAL PARENCHYMA: Periventricular white matter lucency is noted. This is most pronounced in the pa rietal lobes bilaterally. This is likely a manifestation of microvascular ischemic change. Similar fi ndings were present on previous study. No additional areas of abnormal brain parenchymal attenuation are identified. There is no indication of recent infarction. MIDLINE SHIFT OR HERNIATION: There is no mass effect. CEREBELLUM / BRAINSTEM: Brainstem and cerebellum have an unremarkable appearance. INTRACRANIAL VESSELS: Extensively calcified atherosclerotic plaque is present along the course of the cavernous segments of both internal carotid arteries. ORBITS: visualized portions of the orbits have an unremarkable appearance. SOFT TISSUES of HEAD: No significant abnormality. CALVARIUM: Evaluation of bone windows reveals no abnormalities. PARANASAL SINUSES / MASTOID AIR CELLS: Paranasal sinuses are free from inflammatory mucosal disease. Mastoid air cells are normally pneumatized. IMPRESSION: 1. Periventricular white matter lucency likely reflecting the presence of microvascular ischemia is u nchanged since 03/05/2017. 2. Otherwise normal head CT without contrast. Signer Name: Orlando Bernabe MD Signed: 11/21/2018 6:02 PM Workstation Name: [id number]
[2018-11-21 18:16] LABS: BUN/Creatinine Ratio 16; Blood Urea Nitrogen 19 mg/dL (9-20); Calcium 10.4 mg/dL (8.4-10.2); Hemolysis Index 14
--- NOTE | 2018-11-21 18:21 | XRay Report ---
CHEST 2 VIEWS INDICATION / CLINICAL INFORMATION: Chest pain. COMPARISON: 11/26/2017. FINDINGS: SUPPORT DEVICES: None. HEART / MEDIASTINUM: There is a median sternotomy. The heart size and pulmonary vasculature are bret l. The aorta is normal in caliber. LUNGS / PLEURA: The lungs are mildly hyperinflated, but clear. No pneumothorax. ADDITIONAL FINDINGS: No significant additional findings. IMPRESSION: No acute abnormality or significant change. Signer Name: Kyler Cuellar MD Signed: 11/21/2018 6:17 PM Workstation Name: [id number]
[2018-11-21 19:00] LABS: INR 1.24 (0.87-1.13)
[2018-11-21 19:03] LABS: Partial Thromboplastin Time 26.1 Sec. (24.2-36.6)
[2018-11-21] MEDS ORDERED: DEXTROSE 50% IN WATER (25GM) 50 ML SYRINGE IV PRN (19:07)
[2018-11-21 19:09] LABS: Hemoglobin 17.6 gm/dl (11.8-15.2); Red Blood Count 6.09 M/mm3 (3.65-5.03)
[2018-11-21 19:10] LABS: Hematocrit 54.3 % (35.5-45.6); Mean Corpuscular HGB Conc 33 % (32-34); Mean Corpuscular Volume 89 fl (84-94); Platelet Count 211 K/mm3 (140-440); Red Cell Distribution Width 14.4 % (13.2-15.2)
--- NOTE | 2018-11-21 19:36 | Emergency Department Report ---
ED Chest Pain HPI - General Chief Complaint: Chest Pain Stated Complaint: CHEST PAIN Time Seen by Provider: 11/21/18 17:02 Source: EMS Mode of arrival: Stretcher Limitations: No Limitations - History of Present Illness Initial Comments: Patient is a 68-year-old -Citizen Of [place] male with past medical history of coronary artery disease cocaine abuse and congestive heart failure who has a history of 3 stents in the coronary arteries. Who is presenting with chest pain. Patient states he was at a fast food restaurant reading a book and started having some chest tightness and shortness of breath. Patient stood up to try to get outside and he had a syncopal episode striking the back of his head. Patient states that his chest pain is starting to improve after receiving aspirin and nitroglycerin in route by EMS. Patient's COMPLAINT is a headache at this time. Patient does admit to recent cocaine use. Severity scale (0 -10): 2 Quality: tightness Consistency: constant - Related Data Previous Rx's Medication Instructions Recorded Last Taken Type Aspirin EC [Halfprin EC] 81 mg PO DAILY #30 tablet 02/15/18 Unknown Rx AtorvaSTATin [Lipitor] 40 mg PO QHS #30 tablet 02/15/18 Unknown Rx Folic Acid [Folvite] 1 mg PO QDAY #30 tablet 02/15/18 Unknown Rx Multivitamin Tab [Multiple Vitamin 1 each PO QDAY #30 tablet 02/15/18 Unknown Rx TAB (Theragran)] Nicotine [Habitrol] 21 mg TD QDAY PRN #15 patch 02/15/18 Unknown Rx Thiamine [Vitamin B-1] 100 mg PO QDAY #30 tablet 02/15/18 Unknown Rx Nystas/Diphen/Xyl Visc/Mylanta 30 ml MM BID PRN #1 udc 07/25/18 Unknown Rx [Magic Mouthwash] Allergies Allergy/AdvReac Type Severity Reaction Status Date / Time bee venom protein (honey bee) Allergy Shortness Verified 07/25/18 01:25 of Breath iv contrast Allergy Shortness Uncoded 06/26/17 17:46 of Breath Heart Score - HEART Score History: Moderately suspicious EKG: Non-specific Age: > 65 Risk factors: > 3 risk factors or hx of atherosclerotic disease Troponin: < normal limit HEART Score: 6 ED Review of Systems ROS: Stated complaint: CHEST PAIN Other details as noted in HPI Comment: All other systems reviewed and negative ED Past Medical Hx - Past Medical History Previous Medical History?: Yes Hx Hypertension: Yes Hx Heart Attack/AMI: Yes Hx Congestive Heart Failure: Yes Hx Diabetes: No Hx Asthma: No Hx COPD: Yes - Surgical History Past Surgical History?: Yes Hx Coronary Stent: Yes (2013) Hx Open Heart Surgery: Yes (2012) Additional Surgical History: heart bypass with 3 stents, - Social History Smoking Status: Never Smoker Substance Use Type: None - Medications Home Medications: Home Medications Medication Instructions Recorded Confirmed Last Taken Type Aspirin EC [Halfprin EC] 81 mg PO DAILY #30 tablet 02/15/18 Unknown Rx AtorvaSTATin [Lipitor] 40 mg PO QHS #30 tablet 02/15/18 Unknown Rx Folic Acid [Folvite] 1 mg PO QDAY #30 tablet 02/15/18 Unknown Rx Multivitamin Tab [Multiple Vitamin 1 each PO QDAY #30 tablet 02/15/18 Unknown Rx TAB (Theragran)] Nicotine [Habitrol] 21 mg TD QDAY PRN #15 patch 02/15/18 Unknown Rx Thiamine [Vitamin B-1] 100 mg PO QDAY #30 tablet 02/15/18 Unknown Rx Nystas/Diphen/Xyl Visc/Mylanta 30 ml MM BID PRN #1 udc 07/25/18 Unknown Rx [Magic Mouthwash] ED Physical Exam - General Limitations: No Limitations General appearance: alert, in no apparent distress - Head Head exam: Present: normocephalic, other (1.5 cm lacto posterior scalp) - Eye Eye exam: Present: normal appearance, PERRL, EOMI - ENT ENT exam: Present: mucous membranes moist - Neck Neck exam: Present: normal inspection - Respiratory Respiratory exam: Present: normal lung sounds bilaterally. Absent: respiratory distress, wheezes, rales, rhonchi, chest wall tenderness - Cardiovascular Cardiovascular Exam: Present: regular rate, normal rhythm. Absent: systolic murmur, diastolic murmur, rubs, gallop - GI/Abdominal GI/Abdominal exam: Present: soft, normal bowel sounds. Absent: distended, tenderness, guarding, rebound - Rectal Rectal exam: Present: deferred - Extremities Exam Extremities exam: Present: normal inspection - Back Exam Back exam: Present: normal inspection - Neurological Exam Neurological exam: Present: alert, oriented X3 - Psychiatric Psychiatric exam: Present: normal affect, normal mood - Skin Skin exam: Present: warm, dry, intact, normal color. Absent: rash ED Course Vital Signs 11/21/18 11/21/18 11/21/18 16:56 17:10 18:29 Temperature 98.2 F Pulse Rate 61 68 Respiratory 16 16 16 Rate Blood Pressure 121/70 Blood Pressure 121/70 114/78 [Left] O2 Sat by Pulse 99 99 Oximetry - Laceration /Wound Repair Posterior Head Wound Location: head Wound Length (cm): 1 Wound's Depth, Shape: superficial, linear Irrigated w/ Saline (ccs): 100 Betadine Prep?: Yes Anesthesia: 1% Lidocaine Number of Sutures: 2 (madyson) JOSAFAT score - Josafat Score Age > 65: (1) Yes Aspirin use within the Past 7 Days: (1) Yes 3 or more CAD Risk Factors: (1) Yes 2 or more Angina events in past 24 hrs: (1) Yes Known CAD with more than 50% Stenosis: (0) No Elevated Cardiac Markers: (0) No ST Deviation Greater than 0.5mm: (0) No JOSAFAT Score: 4 ED Medical Decision Making - Lab Data Result diagrams: 11/21/18 17:42 11/21/18 17:42 Lab Results 11/21/18 11/21/18 11/21/18 Range/Units 17:42 17:42 17:42 WBC 6.0 (4.5-11.0) K/mm3 RBC 6.09 H (3.65-5.03) M/mm3 Hgb 17.6 H (11.8-15.2) gm/dl Hct 54.3 H (35.5-45.6) % MCV 89 (84-94) fl MCH 29 (28-32) pg MCHC 33 (32-34) % RDW 14.4 (13.2-15.2) % Plt Count 211 (140-440) K/mm3 Mineral % (Auto) Inventory Accountant PT (12.2-14.9) Sec. INR (0.87-1.13) APTT (24.2-36.6) Sec. Sodium 138 (137-145) mmol/L Potassium 3.6 (3.6-5.0) mmol/L Chloride 96.3 L (98-107) mmol/L Carbon Dioxide 22 (22-30) mmol/L Anion Gap 23 mmol/L BUN 19 (9-20) mg/dL Creatinine 1.2 (0.8-1.5) mg/dL Estimated GFR > 60 ml/min BUN/Creatinine Ratio 16 % Glucose 51 L (75-100) mg/dL Calcium 10.4 H (8.4-10.2) mg/dL Troponin T (0.00-0.029) ng/mL Plasma/Serum Alcohol < 0.01 (0-0.07) % 11/21/18 11/21/18 Range/Units 17:42 17:42 WBC (4.5-11.0) K/mm3 RBC (3.65-5.03) M/mm3 Hgb (11.8-15.2) gm/dl Hct (35.5-45.6) % MCV (84-94) fl MCH (28-32) pg MCHC (32-34) % RDW (13.2-15.2) % Plt Count (140-440) K/mm3 Mineral % (Auto) PT 15.3 H (12.2-14.9) Sec. INR 1.24 H (0.87-1.13) APTT 26.1 (24.2-36.6) Sec. Sodium (137-145) mmol/L Potassium (3.6-5.0) mmol/L Chloride (98-107) mmol/L Carbon Dioxide (22-30) mmol/L Anion Gap mmol/L BUN (9-20) mg/dL Creatinine (0.8-1.5) mg/dL Estimated GFR ml/min BUN/Creatinine Ratio % Glucose (75-100) mg/dL Calcium (8.4-10.2) mg/dL Troponin T < 0.010 (0.00-0.029) ng/mL Plasma/Serum Alcohol (0-0.07) % - EKG Data -: EKG Interpreted by Sc - EKG Data 11/21/18 19:35 EKG shows sinus sinus rhythm rate of 60. Patient is having frequent PACs and a 2-[address] segment elevations or depressions present. [place] is normal intervals are otherwise normal. Time of interpretation 1700 - Radiology Data [facility] [address] [place] [address] XRay Report Signed Patient: EVELYN MARES MR#: [id number] : 1950 Acct:[id number] Age/Sex: 68 / M ADM Date: 11/21/18 Loc: ED Attending Dr: Ordering Physician: BREONNA MIRZA MD Date of Service: 11/21/18 Procedure(s): XR chest routine 2V Accession Number(s): [id number] cc: BREONNA MIRZA MD Fluoro Time In Minutes: CHEST 2 VIEWS INDICATION / CLINICAL INFORMATION: Chest pain. COMPARISON: 11/26/2017. FINDINGS: SUPPORT DEVICES: None. HEART / MEDIASTINUM: There is a median sternotomy. The heart size and pulmonary vasculature are normal. The aorta is normal in caliber. LUNGS / PLEURA: The lungs are mildly hyperinflated, but clear. No pneumothorax. ADDITIONAL FINDINGS: No significant additional findings. IMPRESSION: No acute abnormality or significant change. Signer Name: Kyler Cuellar MD Signed: 11/21/2018 6:17 PM Workstation Name: [id number] Transcribed By: RT Dictated By: Kyler Cuellar MD Electronically Authenticated By: Kyler Cuellar MD Signed Date/Time: 11/21/181816 [facility] [address] [place] [address] Cat Scan Report Signed Patient: EEVLYN MARES MR#: [id number] : 1950 Acct:[id number] Age/Sex: 68 / M ADM Date: 11/21/18 Loc: ED Attending Dr: Ordering Physician: BREONNA MIRZA MD Date of Service: 11/21/18 Procedure(s): CT head/brain wo con Accession Number(s): [id number] cc: BREONNA MIRZA MD CT HEAD WITHOUT CONTRAST INDICATION / CLINICAL INFORMATION: Syncope with head injury. TECHNIQUE: All CT scans at this location are performed using CT dose reduction for ALARA by means of automated exposure control. COMPARISON: Head CT 03/05/2017 FINDINGS: HEMORRHAGE: No evidence of intracranial hemorrhage or extra-axial fluid co llection. EXTRA-AXIAL SPACES: Cortical sulci, sylvian fissures and basilar cisterns have an unremarkable appearance. VENTRICULAR SYSTEM: The ventricular system is of normal size and configuration. CEREBRAL PARENCHYMA: Periventricular white matter lucency is noted. This is most pronounced in the parietal lobes bilaterally. This is likely a manifestation of microvascular ischemic change. Similar findings were present on previous study. No additional areas of abnormal brain parenchymal attenuation are identified. There is no indication of recent infarction. MIDLINE SHIFT OR HERNIATION: There is no mass effect. CEREBELLUM / BRAINSTEM: Brainstem and cerebellum have an unremarkable appearance. INTRACRANIAL VESSELS: Extensively calcified atherosclerotic plaque is present along the course of the cavernous segments of both internal carotid arteries. ORBITS: visualized portions of the orbits have an unremarkable appearance. SOFT TISSUES of HEAD: No significant abnormality. CALVARIUM: Evaluation of bone windows reveals no abnormalities. PARANASAL SINUSES / MASTOID AIR CELLS: Paranasal sinuses are free from inflammatory mucosal disease. Mastoid air cells are normally pneumatized. IMPRESSION: 1. Periventricular white matter lucency likely reflecting the presence of microvascular ischemia is unchanged since 03/05/2017. 2. Otherwise normal head CT without contrast. Signer Name: Orlando Bernabe MD Signed: 11/21/2018 6:02 PM Workstation Name: [id number] Transcribed By: Dictated By: Orlando Bernabe MD Electronically Authenticated By: Orlando Bernabe MD Signed Date/Time: 11/21/18 1802 - Medical Decision Making Patient is supposed chest pain-free at this time after being pretreated by EMS with aspirin and nitroglycerin. The patient does have some abnormality to the EKG with frequent PACs however he has had an EKG similar to this in the past. Patient states he is not have a cardiology consultation to check the patency of the patient's stents in "very long time." Patient's laceration was repaired. There is no intracranial hemorrhage seen on CT. Patient be admitted to the hospitalist service this time. Critical Care Time: Yes (30) Critical care attestation.: If time is entered above; I have spent that time in minutes in the direct care of this critically ill patient, excluding procedure time. ED Disposition Clinical Impression: Unstable angina, Cocaine abuse Syncope Qualifiers: Syncope type: unspecified Qualified Code(s): R55 - Syncope and collapse Closed head injury Qualifiers: Encounter type: initial encounter Qualified Code(s): S09.90XA - Unspecified injury of head, initial encounter Scalp laceration Qualifiers: Encounter type: initial encounter Qualified Code(s): S01.01XA - Laceration without foreign body of scalp, initial encounter Disposition: DC-09 OP ADMIT IP TO THIS HOSP Is pt being admited?: Yes Does the pt Need Aspirin: No Condition: Stable Instructions: Angina (ED), Syncope (ED) Time of Disposition: 20:34
[2018-11-21 19:55] LABS: Band Neutrophils # (Manual) 0.1 K/mm3; Total Cells Counted 100
[2018-11-21 19:56] LABS: Platelet Estimate Consistent w Auto; RBC Morphology Normal
[2018-11-21] MEDS ORDERED: ALBUTEROL 2.5 MG/3 ML NEBU IH PRN (20:02)
[2018-11-21] MEDS ORDERED: ACETAMINOPHEN 325 MG TAB PO PRN (20:02)
[2018-11-21] MEDS ORDERED: ONDANSETRON 4 MG/2 ML INJ IV PRN (20:02)
[2018-11-21] MEDS ORDERED: HYDROmorphone 1 MG/1 ML INJ IV PRN (20:04)
[2018-11-21] MEDS ORDERED: MORPHINE 2 MG/1 ML INJ IV PRN (20:04)
[2018-11-21] MEDS ORDERED: NICOTINE 21 MG/24 HR PATCH TD PRN (20:12)
--- NOTE | 2018-11-21 20:28 | History and Physical Report ---
History of Present Illness Date of examination: 11/21/18 Date of admission: 11/21/2018 Chief complaint: chest pain History of present illness: 68-year-old -[place] male who was ongoing smoker with history of COPD, CHF, CAD s/p stent/ s/p CABG, AK, echo abuse, cocaine abuse who presents [facility] ED with complaints of chest pain, nausea, and diaphoresis. Patient states that he was sitting in [email or web address] (fast food restaurant) reading a book, when he suddenly felt sharp mid sternal 7/10 chest pain. The pain was non radiating and accompanied by nausea and shortness of breath. He stood up and attempted to go outside for some fresh air but had syncopal episode striking the back of his head. EMS was called and pt was trans ferred to our facility. While in route to [facility] pt received ASA and nitroglycerin. Upon arrival pt states that his chest pain has improved. Pt states that he should be on daily ASA and statin therapy, but has been noncompliant due to being homeless. A review of medical records shows that pt was admitted on 11/27/17 for chest pain, but signed out AMA before workup was completed. Denies: emesis, headache, fever, cough, hemoptysis, visual disturbances, recent cocaine or illicit drug use Past History Past Medical History: acute AK (x1, ), CAD (s/p stent x3, CABG x1), COPD, heart failure, other (cocaine abuse, tobacco abuse) Past Surgical History: CABG (x1, s/p stent x3,) Social history: smoking (current everyday smoker, hx of cocaine abuse), other (homeless) Family history: no significant family history Medications and Allergies Allergies Allergy/AdvReac Type Severity Reaction Status Date / Time bee venom protein (honey bee) Allergy Shortness Verified 07/25/18 01:25 of Breath iv contrast Allergy Shortness Uncoded 06/26/17 17:46 of Breath Home Medications Medication Instructions Recorded Confirmed Last Taken Type Aspirin EC [Halfprin EC] 81 mg PO DAILY #30 tablet 02/15/18 Unknown Rx AtorvaSTATin [Lipitor] 40 mg PO QHS #30 tablet 02/15/18 Unknown Rx Folic Acid [Folvite] 1 mg PO QDAY #30 tablet 02/15/18 Unknown Rx Multivitamin Tab [Multiple Vitamin 1 each PO QDAY #30 tablet 02/15/18 Unknown Rx TAB (Theragran)] Nicotine [Habitrol] 21 mg TD QDAY PRN #15 patch 02/15/18 Unknown Rx Thiamine [Vitamin B-1] 100 mg PO QDAY #30 tablet 02/15/18 Unknown Rx Nystas/Diphen/Xyl Visc/Mylanta 30 ml MM BID PRN #1 udc 07/25/18 Unknown Rx [Magic Mouthwash] Active Meds: Active Medications Acetaminophen (Tylenol) 650 mg PO Q4H PRN PRN Reason: Pain MILD(1-3)/Fever >100.5/LYMAN Albuterol (Proventil) 2.5 mg IH Q3HRT PRN PRN Reason: Shortness Of Breath Aspirin (Halfprin Ec) 81 mg PO DAILY RAD[facility] Atorvastatin Calcium (Lipitor) 40 mg PO QHS [facility] Dextrose (D50w (25gm) Syringe) 25 ml IV PRN PRN PRN Reason: Hypoglycemia Docusate Sodium (Colace) 100 mg PO BID [facility] Enoxaparin Sodium (Lovenox) 40 mg SUB-Q QDAY [facility] Hydromorphone HCl (Dilaudid) 0.5 mg IV Q3H PRN PRN Reason: Pain , Severe (7-10) Sodium Chloride (Nacl 0.9% 1000 Ml) 1,000 mls @ 50 mls/hr IV DIRECT RADHA Stop: 11/22/18 12:00 Morphine Sulfate (Morphine) 2 mg IV Q4H PRN PRN Reason: Pain, Moderate (4-6) Nicotine (Habitrol) 21 mg TD QDAY PRN PRN Reason: Smoking Cessation Ondansetron HCl (Zofran) 4 mg IV Q6H PRN PRN Reason: Nausea And Vomiting Sodium Chloride (Sodium Chloride Flush Syringe 10 Ml) 10 ml IV BID RADHA Sodium Chloride (Sodium Chloride Flush Syringe 10 Ml) 10 ml IV PRN PRN PRN Reason: LINE FLUSH Review of Systems All systems: negative Cardiovascular: chest pain, syncope, shortness of breath Neurological: head injury (patient to left posterior head) Exam - Physical Exam Narrative exam: Physical exam General appearance: Present: No acute distress, alert and oriented 3, well developed, adult -[place] male HEENT HEAD: Laceration closed with 2 madyson to left posterior head Eyes: Present: PERRL, EOM intact, ENT: hearing intact, missing teeth - Neck Neck: Present: supple, normal ROM - Respiratory Respiratory effort: Non-labored Respiratory: CTA - Cardiovascular Heart rate: 60 (bpm) Rhythm: SR, with frequent PAC Heart Sounds: Present: S1, S2 - Extremities Extremities: no ischemia, pulses intact - Peripheral Assessment Peripheral Pulses: within normal limits - Abdominal General gastrointestinal: soft, non-tender, normal bowel sounds - Integumentary Integumentary: Present: warm, dry, - Musculoskeletal Musculoskeletal: Able to move all extremities -Neurological Neurological: CN II-XII grossly intact - Psychiatric Psychiatric: cooperative - Constitutional Vitals: Temp Pulse Resp BP Pulse Ox 98.2 F 68 16 114/78 99 11/21/18 16:56 11/21/18 18:29 11/21/18 18:29 11/21/18 18:29 11/21/18 18:29 Results - Labs CBC & Chem 7: 11/21/18 17:42 11/21/18 17:42 Labs: Laboratory Last Values WBC 6.0 K/mm3 (4.5-11.0) 11/21/18 17:42 RBC 6.09 M/mm3 (3.65-5.03) H 11/21/18 17:42 Hgb 17.6 gm/dl (11.8-15.2) H 11/21/18 17:42 Hct 54.3 % (35.5-45.6) H 11/21/18 17:42 MCV 89 fl (84-94) 11/21/18 17:42 MCH 29 pg (28-32) 11/21/18 17:42 MCHC 33 % (32-34) 11/21/18 17:42 RDW 14.4 % (13.2-15.2) 11/21/18 17:42 Plt Count 211 K/mm3 (140-440) 11/21/18 17:42 [facility] % (Auto) Nicker And Breaker 11/21/18 17:42 Add Manual Diff Complete 11/21/18 17:42 Total Counted 100 11/21/18 17:42 Seg Neuts % (Manual) 38.0 % (40.0-70.0) L 11/21/18 17:42 1.0 % 11/21/18 17:42 40.0 % (13.4-35.0) H 11/21/18 17:42 Reactive Lymphs % (Man) 4.0 % 11/21/18 17:42 15.0 % (0.0-7.3) H 11/21/18 17:42 1.0 % (0.0-4.3) 11/21/18 17:42 1.0 % (0.0-1.8) 11/21/18 17:42 0 % 11/21/18 17:42 0 % 11/21/18 17:42 0 % 11/21/18 17:42 0 % 11/21/18 17:42 Nucleated RBC % Not Reportable 11/21/18 17:42 Seg Neutrophils # Man 2.3 K/mm3 (1.8-7.7) 11/21/18 17:42 Band Neutrophils # 0.1 K/mm3 11/21/18 17:42 2.4 K/mm3 (1.2-5.4) 11/21/18 17:42 Abs React Lymphs (Man) 0.2 K/mm3 11/21/18 17:42 0.9 K/mm3 (0.0-0.8) H 11/21/18 17:42 0.1 K/mm3 (0.0-0.4) 11/21/18 17:42 0.1 K/mm3 (0.0-0.1) 11/21/18 17:42 0.0 K/mm3 11/21/18 17:42 0.0 K/mm3 11/21/18 17:42 0.0 K/mm3 11/21/18 17:42 Blast Cells # 0.0 K/mm3 11/21/18 17:42 WBC Morphology Not Reportable 11/21/18 17:42 Hypersegmented Neuts Not Reportable 11/21/18 17:42 Hyposegmented Neuts Not Reportable 11/21/18 17:42 Hypogranular Neuts Not Reportable 11/21/18 17:42 Not Reportable 11/21/18 17:42 Not Reportable 11/21/18 17:42 Not Reportable 11/21/18 17:42 Not Reportable 11/21/18 17:42 Not Reportable 11/21/18 17:42 Not Reportable 11/21/18 17:42 Consistent w auto 11/21/18 17:42 Not Reportable 11/21/18 17:42 Plt Clumps, EDTA Not Reportable 11/21/18 17:42 Not Reportable 11/21/18 17:42 Not Reportable 11/21/18 17:42 Not Reportable 11/21/18 17:42 Plt Morphology Comment Not Reportable 11/21/18 17:42 RBC Morphology Normal 11/21/18 17:42 Dimorphic RBCs Not Reportable 11/21/18 17:42 Not Reportable 11/21/18 17:42 Not Reportable 11/21/18 17:42 Not Reportable 11/21/18 17:42 Not Reportable 11/21/18 17:42 Not Reportable 11/21/18 17:42 Not Reportable 11/21/18 17:42 Not Reportable 11/21/18 17:42 Not Reportable 11/21/18 17:42 Not Reportable 11/21/18 17:42 Not Reportable 11/21/18 17:42 Not Reportable 11/21/18 17:42 Not Reportable 11/21/18 17:42 Not Reportable 11/21/18 17:42 Not Reportable 11/21/18 17:42 Not Reportable 11/21/18 17:42 Not Reportable 11/21/18 17:42 Not Reportable 11/21/18 17:42 Not Reportable 11/21/18 17:42 Not Reportable 11/21/18 17:42 Acanthocytes (Spur) Not Reportable 11/21/18 17:42 Rouleaux Not Reportable 11/21/18 17:42 Not Reportable 11/21/18 17:42 Not Reportable 11/21/18 17:42 Not Reportable 11/21/18 17:42 Not Reportable 11/21/18 17:42 Hem Pathologist Commnt No 11/21/18 17:42 PT 15.3 Sec. (12.2-14.9) H 11/21/18 17:42 INR 1.24 (0.87-1.13) H 11/21/18 17:42 APTT 26.1 Sec. (24.2-36.6) 11/21/18 17:42 Sodium 138 mmol/L (137-145) 11/21/18 17:42 Potassium 3.6 mmol/L (3.6-5.0) 11/21/18 17:42 Chloride 96.3 mmol/L (98-107) L 11/21/18 17:42 Carbon Dioxide 22 mmol/L (22-30) 11/21/18 17:42 23 mmol/L 11/21/18 17:42 BUN 19 mg/dL (9-20) 11/21/18 17:42 1.2 mg/dL (0.8-1.5) 11/21/18 17:42 Estimated GFR > 60 ml/min 11/21/18 17:42 16 % 11/21/18 17:42 Glucose 51 mg/dL (75-100) L 11/21/18 17:42 POC Glucose 98 (70-105) 11/21/18 19:27 Calcium 10.4 mg/dL (8.4-10.2) H 11/21/18 17:42 < 0.010 ng/mL (0.00-0.029) 11/21/18 17:42 Plasma/Serum Alcohol < 0.01 % (0-0.07) 11/21/18 17:42 - Imaging and Cardiology Imaging and Cardiology: CXR: FINDINGS: SUPPORT DEVICES: None. HEART / MEDIASTINUM: There is a median sternotomy. The heart size and pulmonary vasculature are normal. The aorta is normal in caliber. LUNGS / PLEURA: The lungs are mildly hyperinflated, but clear. No pneumothorax. ADDITIONAL FINDINGS: No significant additional findings. IMPRESSION: No acute abnormality or significant change. CT Head/Brain: FINDINGS: HEMORRHAGE: No evidence of intracranial hemorrhage or extra-axial fluid collection. EXTRA-AXIAL SPACES: Cortical sulci, sylvian fissures and basilar cisterns have an unremarkable appearance. VENTRICULAR SYSTEM: The ventricular system is of normal size and configuration. CEREBRAL PARENCHYMA: Periventricular white matter lucency is noted. This is most pronounced in the parietal lobes bilaterally. This is likely a manifestation of microvascular ischemic change. Similar findings were present on previous study. No additional areas of abnormal brain parenchymal attenuation are identified. There is no indication of recent infarction. MIDLINE SHIFT OR HERNIATION: There is no mass effect. CEREBELLUM / BRAINSTEM: Brainstem and cerebellum have an unremarkable appearance. INTRACRANIAL VESSELS: Extensively calcified atherosclerotic plaque is present along the course of the cavernous segments of both internal carotid arteries. ORBITS: visualized portions of the orbits have an unremarkable appearance. SOFT TISSUES of HEAD: No significant abnormality. CALVARIUM: Evaluation of bone windows reveals no abnormalities. PARANASAL SINUSES / MASTOID AIR CELLS: Paranasal sinuses are free from infl ammatory mucosal disease. Mastoid air cells are normally pneumatized. IMPRESSION: 1. Periventricular white matter lucency likely reflecting the presence of microvascular ischemia is unchanged since 03/05/2017. 2. Otherwise normal head CT without contrast. Assessment and Plan Assessment and plan: 68-year-old -[place] male who was ongoing smoker with history of COPD, CHF, CAD s/p stent/ s/p CABG, AK, echo abuse, cocaine abuse who presents [facility] ED with complaints of chest pain, nausea, diaphoresis and syncopal episode x1. Acute Chest Pain -Hx of AK -Initiate chest pain protocol -Continuous telemetry monitoring -Continue supportive care -Pain mgmt -Echo pending - Will derfer stress test per cardiology recs -Troponin negative x 1, will continue to trend -On ASA and Statin -Lipid panel pending -Cardiology consult pending Syncope -Syncopal episode x1 -CT Head negative -Neurochecks -Bilateral Carotid Dopplers and Echo pending -On ASA, and Statin -Lipid panel pending -PT/OT consulted HX CAD -s/p Stent x3, CABG x1 - Continue ASA and Statin Hypotension -BP 87/55 -Gentle hydration with IVF -Continue to monitor BP Tobacco abuse -Smokes half to one pack per day -Counseled for cessation -Nicotine patch when necessary History of cocaine abuse -Denies current use -UDS pending DVT PPX -on Lovenox Advance Directives: No VTE prophylaxis?: Chemical Plan of care discussed with patient/family: Yes
[2018-11-21 20:57] LABS: Amphetamine Screen,Urine PRESUMPTIVE NEGATIVE; Benzodiazepines Screen,Urine PRESUMPTIVE NEGATIVE; Methadone Screen,Urine PRESUMPTIVE NEGATIVE; Opiate Screen,Urine PRESUMPTIVE NEGATIVE
[2018-11-21] MEDS ORDERED: SODIUM CHLORIDE 0.9% 1000 ML 1,000 ML IV SCH (21:00)
[2018-11-21 21:08] LABS: BUN/Creatinine Ratio 17; Blood Urea Nitrogen 17 mg/dL (9-20); Calcium 9.2 mg/dL (8.4-10.2); Hemolysis Index 7
[2018-11-21 21:52] LABS: Cannabinoid Screen,Urine PRESUMPTIVE POSITIVE; Cocaine Screen,Urine PRESUMPTIVE POSITIVE
[2018-11-21] MEDS: DOCUSATE SODIUM 100 MG CAP PO SCH (21:59)
[2018-11-22 06:46] LABS: BUN/Creatinine Ratio 17; Blood Urea Nitrogen 15 mg/dL (9-20); Calcium 8.9 mg/dL (8.4-10.2); Chol/HDL Ratio 2.75 %; HDL Cholesterol 49 mg/dL (40-59); Hemolysis Index 5; LDL Cholesterol,Direct 85 mg/dL (50-130)
[2018-11-22 06:46] LABS: Basophils % (Auto) 0.3 % (0.0-1.8); Eosinophils # (Auto) 0.1 K/mm3 (0.0-0.4); Eosinophils % (Auto) 1.2 % (0.0-4.3); Hematocrit 42.7 % (35.5-45.6); Hemoglobin 13.9 gm/dl (11.8-15.2); Lymphocytes # (Auto) 2.4 K/mm3 (1.2-5.4); Mean Corpuscular HGB Conc 33 % (32-34); Mean Corpuscular Volume 88 fl (84-94); Monocytes # (Auto) 0.7 K/mm3 (0.0-0.8); Monocytes % (Auto) 13.4 % (0.0-7.3); Platelet Count 163 K/mm3 (140-440); Red Blood Count 4.86 M/mm3 (3.65-5.03)
[2018-11-22] MEDS: DOCUSATE SODIUM 100 MG CAP PO SCH ×2 (09:35→22:49)
[2018-11-22] MEDS: ASPIRIN EC 81 MG TAB PO SCH (09:35)
[2018-11-22] MEDS: ENOXAPARIN 40 MG/0.4 ML INJ SUB-Q SCH (09:36)
--- NOTE | 2018-11-22 12:13 | Vascular Lab Report ---
BILATERAL CAROTID DOPPLER ULTRASOUND INDICATION : syncope TECHNIQUE: Grayscale and color Doppler imaging performed through the neck. COMPARISON: None FINDINGS: Right: There is no significant atherosclerotic disease. Peak systolic velocity in the CCA is 62 cm/ s with end-diastolic velocity of 20 cm/s. Peak systolic velocity in the proximal ICA is 65 cm/s with end-diastolic velocity of 17 cm/s. ICA to CCA ratio is less than 2. There is antegrade flow in the E CA and the vertebral artery. Left: There is mild, focal partially calcified plaque in the distal CCA. Peak systolic velocity in th e CCA is 60 cm/s with end-diastolic velocity of 23 cm/s. Peak systolic velocity in the proximal ICA i s 55 cm/s with end-diastolic velocity of 20 cm/s. ICA to CCA ratio is less than 2. There is antegrade flow in the ECA and the vertebral artery. IMPRESSION: No hemodynamically significant stenosis by NASCET criteria. Signer Name: Philippe Scott Jr, MD Signed: 11/22/2018 12:08 PM Workstation Name: [id number]
--- NOTE | 2018-11-22 13:08 | Consultation ---
History of Present Illness Consult date: 11/22/18 Consult reason: syncope History of present illness: The patient is a 68-year-old man who was brought to the hospital following a supa pected syncopal episode while he was dining at a fast food restaurant. He was reported to have been found down on the ground by employees at the restaurant, and on presentation to the hospital there was a laceration on the back of his head. The patient states that he suddenly felt dizzy prior to the episode, but did not report chest pain, shortness of breath, or palpitations. He states that similar episodes have occurred in the recent past, and he usually has a premonition or aura of the impending syncope. Patient has a history of coronary artery disease, previous four-way coronary bypass in 2010, while he lived in [place]. He states that following that he also had coronary stent placement. Comorbidities include chronic tobacco abuse, and cocaine abuse. Six months ago he was hospitalized at [facility] for cocaine addiction, and cardiology consultation was requested that time for the finding of asymptomatic sinus bradycardia. Currently the patient is alert and oriented 3, comfortable, no cardiac complaints. ECG on this admission showed a multifocal atrial rhythm, otherwise normal ECG. He has maintained a mostly normal sinus rhythm on telemetry monitoring. Past History Past Medical History: acute [place] (x1, ), CAD (s/p stent x3, CABG x1), COPD, heart failure, other (cocaine abuse, tobacco abuse) Past Surgical History: CABG (x1, s/p stent x3,) Social history: smoking (current everyday smoker, hx of cocaine abuse), other (homeless) Family history: no significant family history Medications and Allergies Allergies Allergy/AdvReac Type Severity Reaction Status Date / Time bee venom protein (honey bee) Allergy Shortness Verified 07/25/18 01:25 of Breath iv contrast Allergy Shortness Uncoded 06/26/17 17:46 of Breath Home Medications Medication Instructions Recorded Confirmed Last Taken Type Aspirin EC [Halfprin EC] 81 mg PO DAILY #30 tablet 02/15/18 11/21/18 Unknown Rx AtorvaSTATin [Lipitor] 40 mg PO QHS #30 tablet 02/15/18 11/21/18 Unknown Rx Folic Acid [Folvite] 1 mg PO QDAY #30 tablet 02/15/18 11/21/18 Unknown Rx Multivitamin Tab [Multiple Vitamin 1 each PO QDAY #30 tablet 02/15/18 11/21/18 Unknown Rx TAB (Theragran)] Nicotine [Habitrol] 21 mg TD QDAY PRN #15 patch 02/15/18 11/21/18 Unknown Rx Thiamine [Vitamin B-1] 100 mg PO QDAY #30 tablet 02/15/18 11/21/18 Unknown Rx Nystas/Diphen/Xyl Visc/Mylanta 30 ml MM BID PRN #1 udc 07/25/18 11/21/18 Unknown Rx [Magic Mouthwash] Active Meds: Active Medications Acetaminophen (Tylenol) 650 mg PO Q4H PRN PRN Reason: Pain MILD(1-3)/Fever >100.5/LYMAN Albuterol (Proventil) 2.5 mg IH Q3HRT PRN PRN Reason: Shortness Of Breath Aspirin (Halfprin Ec) 81 mg PO DAILY [facility] Last Admin: 11/22/18 09:35 Dose: 81 mg Documented by: Atorvastatin Calcium (Lipitor) 40 mg PO QHS [facility] Last Admin: 11/21/18 21:59 Dose: 40 mg Documented by: Dextrose (D50w (25gm) Syringe) 25 ml IV PRN PRN PRN Reason: Hypoglycemia Docusate Sodium (Colace) 100 mg PO BID [facility] Last Admin: 11/22/18 09:35 Dose: 100 mg Documented by: Enoxaparin Sodium (Lovenox) 40 mg SUB-Q QDAY [facility] Last Admin: 11/22/18 09:36 Dose: 40 mg Documented by: Hydromorphone HCl (Dilaudid) 0.5 mg IV Q3H PRN PRN Reason: Pain , Severe (7-10) Morphine Sulfate (Morphine) 2 mg IV Q4H PRN PRN Reason: Pain, Moderate (4-6) Nicotine (Habitrol) 21 mg TD QDAY PRN PRN Reason: Smoking Cessation Last Admin: 11/22/18 09:35 Dose: 21 mg Documented by: Ondansetron HCl (Zofran) 4 mg IV Q6H PRN PRN Reason: Nausea And Vomiting Sodium Chloride (Sodium Chloride Flush Syringe 10 Ml) 10 ml IV BID [facility] Last Admin: 11/21/18 21:59 Dose: 10 ml Documented by: Sodium Chloride (Sodium Chloride Flush Syringe 10 Ml) 10 ml IV PRN PRN PRN Reason: LINE FLUSH Review of Systems Cardiovascular: syncope, lightheadedness, no chest pain, no orthopnea, no palpitations, no rapid/irregular heart beat, no edema, no shortness of breath Physical Examination Vital Signs Temp Pulse Resp BP Pulse Ox 98.2 F 61 16 121/70 99 11/21/18 16:56 11/21/18 16:56 11/21/18 16:56 11/21/18 16:56 11/21/18 16:56 General appearance: no acute distress HEENT: Positive: PERRL Neck: Positive: neck supple Cardiac: Positive: Reg Rate and Rhythm Lungs: Positive: Decreased Breath Sounds Neuro: Positive: Grossly Intact Abdomen: Positive: Soft Male genitourinary: Positive: deferred Skin: Positive: Clear Extremities: Absent: edema Results 11/22/18 Unknown 11/22/18 04:00 Coagulation 11/21/18 Range/Units 17:42 PT 15.3 H (12.2-14.9) Sec. INR 1.24 H (0.87-1.13) APTT 26.1 (24.2-36.6) Sec. Lipids 11/22/18 Range/Units 04:00 Triglycerides 49 (2-149) mg/dL Cholesterol 135 (50-199) mg/dL HDL Cholesterol 49 (40-59) mg/dL Cholesterol/HDL Ratio 2.75 % CBC 11/21/18 11/22/18 Range/Units 17:42 Unknown WBC 6.0 5.3 (4.5-11.0) K/mm3 RBC 6.09 H 4.86 (3.65-5.03) M/mm3 Hgb 17.6 H 13.9 D (11.8-15.2) gm/dl Hct 54.3 H 42.7 D (35.5-45.6) % Plt Count 211 163 (140-440) K/mm3 Lymph # 2.4 (1.2-5.4) K/mm3 [place] # 0.7 (0.0-0.8) K/mm3 Eos # 0.1 (0.0-0.4) K/mm3 Baso # 0.0 (0.0-0.1) K/mm3 Comprehensive Metabolic Panel 11/21/18 11/21/18 11/22/18 Range/Units 17:42 20:20 04:00 Sodium 138 136 L 138 (137-145) mmol/L Potassium 3.6 3.5 L 3.8 (3.6-5.0) mmol/L Chloride 96.3 L 99.6 101.9 (98-107) mmol/L Carbon Dioxide 22 23 23 (22-30) mmol/L BUN 19 17 15 (9-20) mg/dL Creatinine 1.2 1.0 0.9 (0.8-1.5) mg/dL Glucose 51 L 143 H 79 (75-100) mg/dL Calcium 10.4 H 9.2 8.9 (8.4-10.2) mg/dL EKG interpretations - Telemetry EKG Rhythm: Sinus Rhythm Assessment and Plan - Patient Problems (1) Syncope Current Visit: Yes Status: Acute Plan to address problem: Syncope, describes as a prodrome of dizziness and a possible aura may suggest a neurological etiology. Recommend neuro evaluation. Cardiac workup with syncope will include an echocardiogram, telemetry monitoring, a predischarge Lexiscan stress test, and outpatient event monitor.
--- NOTE | 2018-11-22 13:30 | Progress Note ---
Assessment and Plan Assessment and plan: 68-year-old male patient with history of COPD, CHF, CAD s/p stent/ s/p CABG, [place], echo abuse, cocaine abuse was admitted to [facility] ED with complaints of chest pain, nausea, diaphoresis and syncopal episode x1. Patient is evaluated by cardiology --Syncope; probably vasovagal Syncope workup so far negative CT head negative Carotid Doppler; no hemodynamically significant stenosis Echocardiogram;Ejection fraction 50-60% mild concentric LVH FAll precautions, physical therapy as needed --Atypical Chest Pain; intermittent Cardiac enzymes 3 negative EKG no acute ST-T changes Continue current management Cardiology following --H/o CAD status post PCI status post CABG Current cardiac medications --Hypotension; resolved --h/o hypertension; continue current antihypertensives and when necessary medications --Ongoing Tobacco abuse; Smoking cessation nicotine patch as needed --History of cocaine abuse strongly advised to quit dictation of drug use; --DVT PPX; on Lovenox -- Full CODE STATUS. Disposition :Monitor closely and adjust management as needed Follow-up cardiology evaluation and recommendations History Interval history: Patient seen and examined medical records reviewed Patient complaints mind mild intermittent chest pain Feels slightly better today Metabolic oriented 3 Vital signs noted Hospitalist Physical - Constitutional Vitals: Temp Pulse Resp BP Pulse Ox 98.3 F 65 18 131/86 98 11/22/18 08:10 11/22/18 08:10 11/22/18 08:10 11/22/18 08:10 11/22/18 09:12 General appearance: Present: no acute distress, well-nourished - EENT Eyes: Present: PERRL, EOM intact - Neck Neck: Present: supple, normal ROM - Respiratory Respiratory effort: normal Respiratory: bilateral: diminished, negative: rales, rhonchi, wheezing - Cardiovascular Rhythm: regular Heart Sounds: Present: S1 & S2 - Extremities Extremities: no ischemia, No edema - Abdominal General gastrointestinal: soft, non-tender, non-distended, normal bowel sounds - Integumentary Integumentary: Present: clear, warm - Psychiatric Psychiatric: appropriate mood/affect, cooperative - Neurologic Neurologic: moves all extremities Results - Labs CBC & Chem 7: 11/22/18 Unknown 11/22/18 04:00 Labs: Laboratory Last Values WBC 5.3 K/mm3 (4.5-11.0) 11/22/18 Unknown RBC 4.86 M/mm3 (3.65-5.03) 11/22/18 Unknown Hgb 13.9 gm/dl (11.8-15.2) D 11/22/18 Unknown Hct 42.7 % (35.5-45.6) D 11/22/18 Unknown MCV 88 fl (84-94) 11/22/18 Unknown MCH 29 pg (28-32) 11/22/18 Unknown MCHC 33 % (32-34) 11/22/18 Unknown RDW 14.0 % (13.2-15.2) 11/22/18 Unknown Plt Count 163 K/mm3 (140-440) 11/22/18 Unknown Lymph % (Auto) 45.0 % (13.4-35.0) H 11/22/18 Unknown [place] % (Auto) 13.4 % (0.0-7.3) H 11/22/18 Unknown Eos % (Auto) 1.2 % (0.0-4.3) 11/22/18 Unknown Baso % (Auto) 0.3 % (0.0-1.8) 11/22/18 Unknown Lymph # 2.4 K/mm3 (1.2-5.4) 11/22/18 Unknown [place] # 0.7 K/mm3 (0.0-0.8) 11/22/18 Unknown Eos # 0.1 K/mm3 (0.0-0.4) 11/22/18 Unknown Baso # 0.0 K/mm3 (0.0-0.1) 11/22/18 Unknown Add Manual Diff Complete 11/21/18 17:42 Total Counted 100 11/21/18 17:42 Seg Neutrophils % 40.1 % (40.0-70.0) 11/22/18 Unknown Seg Neuts % (Manual) 38.0 % (40.0-70.0) L 11/21/18 17:42 Band Neutrophils % 1.0 % 11/21/18 17:42 Lymphocytes % (Manual) 40.0 % (13.4-35.0) H 11/21/18 17:42 Reactive Lymphs % (Man) 4.0 % 11/21/18 17:42 Monocytes % (Manual) 15.0 % (0.0-7.3) H 11/21/18 17:42 Eosinophils % (Manual) 1.0 % (0.0-4.3) 11/21/18 17:42 Basophils % (Manual) 1.0 % (0.0-1.8) 11/21/18 17:42 Metamyelocytes % 0 % 11/21/18 17:42 Myelocytes % 0 % 11/21/18 17:42 Promyelocytes % 0 % 11/21/18 17:42 Blast Cells % 0 % 11/21/18 17:42 Nucleated RBC % Not Reportable 11/21/18 17:42 Seg Neutrophils # 2.1 K/mm3 (1.8-7.7) 11/22/18 Unknown Seg Neutrophils # Man 2.3 K/mm3 (1.8-7.7) 11/21/18 17:42 Band Neutrophils # 0.1 K/mm3 11/21/18 17:42 Lymphocytes # (Manual) 2.4 K/mm3 (1.2-5.4) 11/21/18 17:42 Abs React Lymphs (Man) 0.2 K/mm3 11/21/18 17:42 Monocytes # (Manual) 0.9 K/mm3 (0.0-0.8) H 11/21/18 17:42 Eosinophils # (Manual) 0.1 K/mm3 (0.0-0.4) 11/21/18 17:42 Basophils # (Manual) 0.1 K/mm3 (0.0-0.1) 11/21/18 17:42 Metamyelocytes # 0.0 K/mm3 11/21/18 17:42 Myelocytes # 0.0 K/mm3 11/21/18 17:42 Promyelocytes # 0.0 K/mm3 11/21/18 17:42 Blast Cells # 0.0 K/mm3 11/21/18 17:42 WBC Morphology Not Reportable 11/21/18 17:42 Hypersegmented Neuts Not Reportable 11/21/18 17:42 Hyposegmented Neuts Not Reportable 11/21/18 17:42 Hypogranular Neuts Not Reportable 11/21/18 17:42 Smudge Cells Not Reportable 11/21/18 17:42 Toxic Granulation Not Reportable 11/21/18 17:42 Toxic Vacuolation Not Reportable 11/21/18 17:42 Dohle Bodies Not Reportable 11/21/18 17:42 Pelger-Huet Anomaly Not Reportable 11/21/18 17:42 Aspen Rods Not Reportable 11/21/18 17:42 Platelet Estimate Consistent w auto 11/21/18 17:42 Clumped Platelets Not Reportable 11/21/18 17:42 Plt Clumps, EDTA Not Reportable 11/21/18 17:42 Large Platelets Not Reportable 11/21/18 17:42 Giant Platelets Not Reportable 11/21/18 17:42 Platelet Satelliting Not Reportable 11/21/18 17:42 Plt Morphology Comment Not Reportable 11/21/18 17:42 RBC Morphology Normal 11/21/18 17:42 Dimorphic RBCs Not Reportable 11/21/18 17:42 Polychromasia Not Reportable 11/21/18 17:42 Hypochromasia Not Reportable 11/21/18 17:42 Poikilocytosis Not Reportable 11/21/18 17:42 Anisocytosis Not Reportable 11/21/18 17:42 Microcytosis Not Reportable 11/21/18 17:42 Macrocytosis Not Reportable 11/21/18 17:42 Spherocytes Not Reportable 11/21/18 17:42 Pappenheimer Bodies Not Reportable 11/21/18 17:42 Sickle Cells Not Reportable 11/21/18 17:42 Target Cells Not Reportable 11/21/18 17:42 Tear Drop Cells Not Reportable 11/21/18 17:42 Ovalocytes Not Reportable 11/21/18 17:42 Helmet Cells Not Reportable 11/21/18 17:42 Damon-Wickes Bodies Not Reportable 11/21/18 17:42 [place] Rings Not Reportable 11/21/18 17:42 [place] Cells Not Reportable 11/21/18 17:42 Bite Cells Not Reportable 11/21/18 17:42 Crenated Cell Not Reportable 11/21/18 17:42 Elliptocytes Not Reportable 11/21/18 17:42 Acanthocytes (Spur) Not Reportable 11/21/18 17:42 Rouleaux Not Reportable 11/21/18 17:42 Hemoglobin C Crystals Not Reportable 11/21/18 17:42 Schistocytes Not Reportable 11/21/18 17:42 Malaria parasites Not Reportable 11/21/18 17:42 Lior Bodies Not Reportable 11/21/18 17:42 Hem Pathologist Commnt No 11/21/18 17:42 PT 15.3 Sec. (12.2-14.9) H 11/21/18 17:42 INR 1.24 (0.87-1.13) H 11/21/18 17:42 APTT 26.1 Sec. (24.2-36.6) 11/21/18 17:42 Sodium 138 mmol/L (137-145) 11/22/18 04:00 Potassium 3.8 mmol/L (3.6-5.0) 11/22/18 04:00 Chloride 101.9 mmol/L (98-107) 11/22/18 04:00 Carbon Dioxide 23 mmol/L (22-30) 11/22/18 04:00 Anion Gap 17 mmol/L 11/22/18 04:00 BUN 15 mg/dL (9-20) 11/22/18 04:00 Creatinine 0.9 mg/dL (0.8-1.5) 11/22/18 04:00 Estimated GFR > 60 ml/min 11/22/18 04:00 BUN/Creatinine Ratio 17 % 11/22/18 04:00 Glucose 79 mg/dL (75-100) 11/22/18 04:00 POC Glucose 98 (70-105) 11/21/18 19:27 Calcium 8.9 mg/dL (8.4-10.2) 11/22/18 04:00 Troponin T < 0.010 ng/mL (0.00-0.029) 11/22/18 02:00 Triglycerides 49 mg/dL (2-149) 11/22/18 04:00 Cholesterol 135 mg/dL (50-199) 11/22/18 04:00 LDL Cholesterol Direct 85 mg/dL (50-130) 11/22/18 04:00 HDL Cholesterol 49 mg/dL (40-59) 11/22/18 04:00 Cholesterol/HDL Ratio 2.75 % 11/22/18 04:00 Urine Opiates Screen Presumptive negative 11/21/18 20:39 Urine Methadone Screen Presumptive negative 11/21/18 20:39 Ur Barbiturates Screen Presumptive negative 11/21/18 20:39 Ur Phencyclidine Scrn Presumptive negative 11/21/18 20:39 Ur Amphetamines Screen Presumptive negative 11/21/18 20:39 U Benzodiazepines Scrn Presumptive negative 11/21/18 20:39 Urine Cocaine Screen Presumptive positive 11/21/18 20:39 U Marijuana (THC) Screen Presumptive positive 11/21/18 20:39 Drugs of Abuse Note Disclamer 11/21/18 20:39 Plasma/Serum Alcohol < 0.01 % (0-0.07) 11/21/18 17:42 Active Medications - Current Medications Current Medications: Generic Name Dose Route Start Last Admin Trade Name Freq PRN Reason Stop Dose Admin Acetaminophen 650 mg 11/21/18 20:02 Tylenol PO Q4H PRN Pain MILD(1-3)/Fever >100.5/LYMAN Albuterol 2.5 mg 11/21/18 20:02 Proventil IH Q3HRT PRN Shortness Of Breath Aspirin 81 mg 11/22/18 10:00 11/22/18 09:35 Halfprin Ec PO 81 mg DAILY RADHA Administration Atorvastatin Calcium 40 mg 11/21/18 22:00 11/21/18 21:59 Lipitor PO 40 mg QHS RADHA Administration Dextrose 25 ml 11/21/18 19:07 D50w (25gm) Syringe IV PRN PRN Hypoglycemia Docusate Sodium 100 mg 11/21/18 22:00 11/22/18 09:35 Colace PO 100 mg BID RADHA Administration Enoxaparin Sodium 40 mg 11/22/18 10:00 11/22/18 09:36 Lovenox SUB-Q 40 mg QDAY RADHA Administration Hydromorphone HCl 0.5 mg 11/21/18 20:04 Dilaudid IV Q3H PRN Pain , Severe (7-10) Morphine Sulfate 2 mg 11/21/18 20:04 Morphine IV Q4H PRN Pain, Moderate (4-6) Nicotine 21 mg 11/21/18 20:12 11/22/18 09:35 Habitrol TD 21 mg QDAY PRN Administration Smoking Cessation Ondansetron HCl 4 mg 11/21/18 20:02 Zofran IV Q6H PRN Nausea And Vomiting Sodium Chloride 10 ml 11/21/18 22:00 11/21/18 21:59 Sodium Chloride Flush Syringe 10 Ml IV 10 ml BID RADHA Administration Sodium Chloride 10 ml 11/21/18 20:02 Sodium Chloride Flush Syringe 10 Ml IV PRN PRN LINE FLUSH
[2018-11-23] MEDS: ENOXAPARIN 40 MG/0.4 ML INJ SUB-Q SCH (09:18)
[2018-11-23] MEDS: ASPIRIN EC 81 MG TAB PO SCH (09:18)
[2018-11-23] MEDS: DOCUSATE SODIUM 100 MG CAP PO SCH ×2 (09:18→22:35)
--- NOTE | 2018-11-23 09:22 | Progress Note ---
Assessment and Plan Syncope Hx of coronary artery disease with previous four-way coronary bypass in 2010, while he lived in [place]. Tobacco abuse Cocaine abuse Normal LVEF by echocardiogram. Recommendations: Continue telemetry monitoring Predischarge Lexiscan stress test and outpatient event monitor. Subjective Date of service: 11/23/18 Interval history: No cardiac complaints. Objective Vital Signs Temp Pulse Resp BP Pulse Ox 11/23/18 08:03 98.5 F 42 L 18 110/85 92 11/23/18 05:11 98.3 F 11/23/18 05:10 55 L 18 147/95 98 11/22/18 23:28 98.3 F 11/22/18 23:26 77 18 143/94 97 11/22/18 19:47 98.3 F 11/22/18 19:46 61 18 140/94 98 11/22/18 12:00 68 - Physical Examination General: No Apparent Distress HEENT: Positive: PERRL Neck: Positive: neck supple Cardiac: Positive: Reg Rate and Rhythm Lungs: Positive: Decreased Breath Sounds Neuro: Positive: Grossly Intact Abdomen: Positive: Soft Extremities: Absent: edema
--- NOTE | 2018-11-23 13:49 | Progress Note ---
Assessment and Plan /Syncope; vs seizure Syncope workup so far negative CT head negative Carotid Doppler; no hemodynamically significant stenosis Echocardiogram;Ejection fraction 50-60% mild concentric LVH FAll precautions, physical therapy as needed Neurology consulted for possible Seizure /Atypical Chest Pain; intermittent Cardiac enzymes 3 negative EKG no acute ST-T changes Cardiology following, planned for stress test tomorrow /H/o CAD status post PCI status post CABG Current cardiac medications /-Hypotension; resolved /h/o hypertension; continue current antihypertensives and when necessary iv medications /-Ongoing Tobacco abuse; Smoking cessation counseled /History of cocaine abuse strongly advised to quit considering his underlying heart disease --DVT PPX; on Lovenox -- Full CODE STATUS. Disposition :Monitor closely and adjust management as needed Follow-up neurology evaluation and recommendations and pending stress test r esult Brief History: 68-year-old male patient with history of COPD, CHF, CAD s/p stent/ s/p CABG, [place], echo abuse, cocaine abuse was admitted to [facility] ED with complaints of chest pain, nausea, diaphoresis and syncopal episode x1. Patient is evaluated by cardiology and neurology consulted. Hospitalist Physical General appearance: Present: no acute distress, well-nourished - EENT Eyes: Present: PERRL, EOM intact - Neck Neck: Present: supple, normal ROM - Respiratory Respiratory effort: normal Respiratory: bilateral: diminished, negative: rales, rhonchi, wheezing - Cardiovascular Rhythm: regular Heart Sounds: Present: S1 & S2 - Extremities Extremities: no ischemia, No edema - Abdominal General gastrointestinal: soft, non-tender, non-distended, normal bowel sounds - Integumentary Integumentary: Present: clear, warm - Psychiatric Psychiatric: appropriate mood/affect, cooperative - Neurologic Neurologic: moves all extremities Subjective Date of service: 11/23/18 Interval history: Patient seen and examined. Medical records and medication list reviewed. No acute event overnight noted by the RN. Patient denies any chest pain or difficulty breathing. Patient is tolerating diet. Discussed plan of care at bedside with patient. Objective - Constitutional Vitals: Vital Signs - 12hr 11/23/18 11/23/18 11/23/18 05:10 05:11 08:03 Temperature 98.3 F 98.5 F Pulse Rate 55 L 42 L Pulse Rate [ Apical] Respiratory 18 18 Rate Blood Pressure 147/95 110/85 Blood Pressure [Left] O2 Sat by Pulse 98 92 Oximetry 11/23/18 11/23/18 11/23/18 11:00 11:11 12:00 Temperature 98.1 F Pulse Rate 56 L 60 Pulse Rate [ 59 L Apical] Respiratory 18 Rate Blood Pressure Blood Pressure 147/94 [Left] O2 Sat by Pulse 96 Oximetry - Labs CBC & Chem 7: 11/22/18 Unknown 11/22/18 04:00
--- NOTE | 2018-11-23 14:02 | Consultation ---
Past History Past Medical History: acute CA (x1, ), CAD (s/p stent x3, CABG x1), COPD, heart failure, other (cocaine abuse, tobacco abuse) Past Surgical History: CABG (x1, s/p stent x3,) Social history: smoking (current everyday smoker, hx of cocaine abuse), other (homeless) Family history: no significant family history Medications and Allergies Allergies Allergy/AdvReac Type Severity Reaction Status Date / Time bee venom protein (honey bee) Allergy Shortness Verified 07/25/18 01:25 of Breath iv contrast Allergy Shortness Uncoded 06/26/17 17:46 of Breath Home Medications Medication Instructions Recorded Confirmed Last Taken Type Aspirin EC [Halfprin EC] 81 mg PO DAILY #30 tablet 02/15/18 11/21/18 Unknown Rx AtorvaSTATin [Lipitor] 40 mg PO QHS #30 tablet 02/15/18 11/21/18 Unknown Rx Folic Acid [Folvite] 1 mg PO QDAY #30 tablet 02/15/18 11/21/18 Unknown Rx Multivitamin Tab [Multiple Vitamin 1 each PO QDAY #30 tablet 02/15/18 11/21/18 Unknown Rx TAB (Theragran)] Nicotine [Habitrol] 21 mg TD QDAY PRN #15 patch 02/15/18 11/21/18 Unknown Rx Thiamine [Vitamin B-1] 100 mg PO QDAY #30 tablet 02/15/18 11/21/18 Unknown Rx Nystas/Diphen/Xyl Visc/Mylanta 30 ml MM BID PRN #1 udc 07/25/18 11/21/18 Unknown Rx [Magic Mouthwash] Active Meds: Active Medications Acetaminophen (Tylenol) 650 mg PO Q4H PRN PRN Reason: Pain MILD(1-3)/Fever >100.5/LYMAN Albuterol (Proventil) 2.5 mg IH Q3HRT PRN PRN Reason: Shortness Of Breath Aspirin (Halfprin Ec) 81 mg PO DAILY COUNT INCLUDES THE [facility] Last Admin: 11/23/18 09:18 Dose: 81 mg Documented by: Atorvastatin Calcium (Lipitor) 40 mg PO QHS COUNT INCLUDES THE [facility] Last Admin: 11/22/18 22:49 Dose: 40 mg Documented by: Dextrose (D50w (25gm) Syringe) 25 ml IV PRN PRN PRN Reason: Hypoglycemia Docusate Sodium (Colace) 100 mg PO BID COUNT INCLUDES THE [facility] Last Admin: 11/23/18 09:18 Dose: 100 mg Documented by: Enoxaparin Sodium (Lovenox) 40 mg SUB-Q QDAY COUNT INCLUDES THE [facility] Last Admin: 11/23/18 09:18 Dose: 40 mg Documented by: Hydromorphone HCl (Dilaudid) 0.5 mg IV Q3H PRN PRN Reason: Pain , Severe (7-10) Morphine Sulfate (Morphine) 2 mg IV Q4H PRN PRN Reason: Pain, Moderate (4-6) Nicotine (Habitrol) 21 mg TD QDAY PRN PRN Reason: Smoking Cessation Last Admin: 11/22/18 09:35 Dose: 21 mg Documented by: Ondansetron HCl (Zofran) 4 mg IV Q6H PRN PRN Reason: Nausea And Vomiting Sodium Chloride (Sodium Chloride Flush Syringe 10 Ml) 10 ml IV BID COUNT INCLUDES THE [facility] Last Admin: 11/23/18 09:19 Dose: 10 ml Documented by: Sodium Chloride (Sodium Chloride Flush Syringe 10 Ml) 10 ml IV PRN PRN PRN Reason: LINE FLUSH Physical Examination - Vital Signs Vital Signs: Vital Signs Temp Pulse Resp BP Pulse Ox 98.2 F 61 16 121/70 99 11/21/18 16:56 11/21/18 16:56 11/21/18 16:56 11/21/18 16:56 11/21/18 16:56 Results - Laboratory Findings CBC and BMP: 11/22/18 Unknown 11/22/18 04:00 Abnormal Lab Findings: Abnormal Labs 11/21/18 11/21/18 11/21/18 17:42 17:42 17:42 RBC 6.09 H Hgb 17.6 H Hct 54.3 H Lymph % (Auto) [place] % (Auto) Seg Neuts % (Manual) 38.0 L Lymphocytes % (Manual) 40.0 H Monocytes % (Manual) 15.0 H Monocytes # (Manual) 0.9 H PT 15.3 H INR 1.24 H Sodium Potassium Chloride 96.3 L Glucose 51 L Calcium 10.4 H 11/21/18 11/22/18 20:20 Unknown RBC Hgb Hct Lymph % (Auto) 45.0 H [place] % (Auto) 13.4 H Seg Neuts % (Manual) Lymphocytes % (Manual) Monocytes % (Manual) Monocytes # (Manual) PT INR Sodium 136 L Potassium 3.5 L Chloride Glucose 143 H Calcium Assessment and Plan 68 YR OLD MALE WITH HIST OF CAD,CA CABG, COPD COCAINE ABUSE WHO CONTINUES TO USE COCAINE AT PRESENT DEVELOPED AN EPISODE OF CHEST PAIN WHEN HE WAS READING AT [facility] ON 11/21/2018. PATIENT STOOD UP AND WENT TO THE COUNTER AND WAS ASKING THE VICE PRESIDENT [employer] TO CALL 911, WHEN SUDDENLY HE LOST CONSCIOUSNESS. NEXT THING HE REMEMBERS IS SEEING THE EMS. HE STATES HE DEVELOPED HEADACHE AFTER HE WOKE UP AND WAS LITTLE CONFUSED. PATIENT REPORTS SIMILAR EPISODES OF LOSS OF CONSCIOUSNESS WHILE HE WAS NOT USING COCAINE WELL WHEN HE WAS, HAS NEVER BEEN TREATED FOR SEIZURE. CT SCAN UPON ADMISSION DID NOT SHOW ANY ACUTE INFARCT OR HEMORRHAGE, PATIENT ALSO COMPLAINS OF ORTHOSTATIC DIZZINESS AND EPISODIC VERTIGO, PHYSICAL EXAMINATION- ALERT AND APPROPRIATE. HAS INSIGHT INTO HIS PROBLEM AND ANSWERS QUESTIONS APPROPRIATELY, HEART-NORMAL RATE AND RYTHM. CAROTIDS-BOTH PALPABLE, CRANIAL NERVES-PUPILS REACT TO LIGHT,EOMI,NO FACIAL ASYMMETRY OR ANY LOSS OF FACIAL SENSATION. MOTOR- NORMAL STRENGTH IN ALL FOUR EXTREMITIES. REFLEXES- ALL REFLEXES ARE WITH IN NORMAL LIMIT WITH BILATERAL DOWN GOING TOES, SENSORY - SENSORY EXAMINATION IS WITH IN NORMAL LIMIT BARANE'S MANUVER -NORMAL ON BOTH SIDES. IMPRESSION, 1. EPISODIC LOSS OF CONSCIOUSNESS FOLLOWED BY POST ICTAL HEADACHE SEEMS LIKE SEIZURE 2. PATIENT ALSO HAS EPSODIC VERTIGO 3. ORTHOSTATIC DIZZINESS RECOMMEND 1. PLEASE INITIATE KEPPRA 500 MG PO BID 2. MECLIZINE 50 MG BID PRN VERTIGO 3. DRINK PLENTY OF WATER AND RISE SLOWLY FROM SITTING AND LYING POSITION. 4. PATIENT WAS COUNSELED TO DISCONTINUE COCAINE USE, HE AGREED TO QUIT.
[2018-11-24] MEDS ORDERED: REGADENOSON 0.4 MG/5 ML INJ IV NR (10:37)
[2018-11-24 11:40] VITALS: BP 136/88
[2018-11-24] MEDS: DOCUSATE SODIUM 100 MG CAP PO SCH (12:31)
[2018-11-24] MEDS: ASPIRIN EC 81 MG TAB PO SCH (12:31)
[2018-11-24] MEDS: ENOXAPARIN 40 MG/0.4 ML INJ SUB-Q SCH (12:31)
[2018-11-24] MEDS ORDERED: MECLIZINE 25 MG TAB PO PRN (13:47)
[2018-11-24] MEDS ORDERED: levETIRAcetam 500 MG TAB PO SCH (14:00)
--- NOTE | 2018-11-24 14:30 | Discharge Summary ---
Providers - Providers Date of Admission: 11/22/18 10:47 Date of discharge: 11/24/18 Attending physician: DEMOND ADAME 11/21/18 Consult to Cardiac Rehabilitation [CONS] Routine Reason For Exam: Phase I 11/21/18 20:04 Consult to Physician [CONS] Routine Comment: Consulting Provider: BECKI AKERS Physician Instructions: Reason For Exam: chest pain, hx stent x3, CABG x1 11/21/18 20:13 Consult to Case Management [CONS] Routine Services Needed at Discharge: Environmental Services Assistant Notified:: cm notified 11/21/18 20:55 Occupational Therapy Evaluate and Treat [CONS] Routine Comment: Reason For Exam: Neuro deficits Physical Therapy Evaluation and Treat [CONS] Routine Comment: Reason For Exam: Neuro deficits 11/23/18 09:09 Consult to Physician [CONS] Routine Comment: Consulting Provider: ANGELIQUE GEORGE Physician Instructions: Reason For Exam: syncope Primary care physician: RAG BALER Hospitalization Condition: Stable Pertinent studies: Head CT CXR MPI stress test 2d echo Hospital course: 68-year-old male patient with history of COPD, CHF, CAD s/p stent/ s/p CABG, [place], echo abuse, cocaine abuse was admitted to [facility] ED with complaints of chest pain, nausea, diaphoresis and loss of consciousness x1. Patient was admitted for further mx and cardiology and neurology consulted for further recommendation. Syncope work up was negative, neurology recommended keppra BID for possible seizure and outpt EEG. His stress test was normal. UDS was positove for cocaine and marijuana - counseled for cessation. Patient was told not to drive for 6 months. He was then discharged home in stable condition with . Discharge diagnosis and Mx: /Possible seizure Syncope workup so far negative CT head negative, Carotid Doppler; no hemodynamically significant stenosis Echocardiogram showed Ejection fraction 50-60% mild concentric LVH Neurology consulted and recommended keppra 500mg BID /Atypical Chest Pain; intermittent Cardiac enzymes 3 negative EKG no acute ST-T changes Cardiology following, s/p stress test was normal /H/o CAD status post PCI status post CABG Current cardiac medications /-Hypotension; resolved /h/o hypertension; stable with current antihypertensives /-Ongoing Tobacco abuse; Smoking cessation counseled /History of cocaine abuse strongly advised to quit considering his underlying heart disease --DVT PPX; on Lovenox -- Full CODE STATUS. Disposition: home with self care Hospitalist Physical General appearance: Present: no acute distress, well-nourished - EENT Eyes: Present: PERRL, EOM intact - Neck Neck: Present: supple, normal ROM - Respiratory Respiratory effort: normal Respiratory: bilateral: diminished, negative: rales, rhonchi, wheezing - Cardiovascular Rhythm: regular Heart Sounds: Present: S1 & S2 - Extremities Extremities: no ischemia, No edema - Abdominal General gastrointestinal: soft, non-tender, non-distended, normal bowel sounds - Integumentary Integumentary: Present: clear, warm - Psychiatric Psychiatric: appropriate mood/affect, cooperative - Neurologic Neurologic: moves all extremities Disposition: TO HOME OR SELFCARE Time spent for discharge: 34 minutes Core Measure Documentation - Palliative Care Palliative Care/ Comfort Measures: Not Applicable - Core Measures Any of the following diagnoses?: none Exam - Constitutional Vitals: Temp Pulse Resp BP Pulse Ox 97.8 F 110 H 18 136/88 97 11/24/18 07:48 11/24/18 07:48 11/24/18 07:48 11/24/18 10:54 11/24/18 07:48 Plan Activity: advance as tolerated Weight Bearing Status: Weight Bear as Tolerated Diet: low fat, low salt Follow up with: PRIMARY CARE, [Primary Care Provider] - 7 Days Prescriptions: Meclizine [Antivert] 25 mg PO Q8H PRN #30 tablet PRN Reason: Vertigo levETIRAcetam [Keppra TAB] 500 mg PO BID #60 tablet
--- NOTE | 2018-11-25 06:53 | Treadmill Report ---
THALLIUM STRESS TEST LEFT VENTRICLE: Left ventricle is at least mildly dilated. Perfusion study demonstrates a moderately sized basal inferior and lateral wall defect, which is fixed with no significant reversibility on the resting study. Gated analysis demonstrates moderately severe left ventricular systolic dysfunction, ejection fraction calculated at 31%. 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 There is no reversible periinfarct ischemia demonstrated. Clinical correlation is recommended. [facility]# [id number] [place]/NT[place]
== END 2018-11-24 15:58 | disposition home or self-care (01) | DRG 312 ==
LOC: ED 16:51 → 4A 20:02 → OBSVTOIN 11-22 10:47
PROVIDERS: ADMIT Internal Medicine; ATTEND Internal Medicine
PROC: 0HQ0XZZ Repair Scalp Skin, External Approach (ICD-10-PCS; principal; 2018-11-21)
DX: R55 Syncope and collapse (principal); S01.01XA Laceration without foreign body of scalp, initial encounter; R07.89 Other chest pain; I25.10 Atherosclerotic heart disease of native coronary artery without angina pectoris; J44.9 Chronic obstructive pulmonary disease, unspecified; F10.10 Alcohol abuse, uncomplicated; Y90.9 Presence of alcohol in blood, level not specified; F14.10 Cocaine abuse, uncomplicated; I11.0 Hypertensive heart disease with heart failure; W18.39XA Other fall on same level, initial encounter; F17.200 Nicotine dependence, unspecified, uncomplicated; I50.9 Heart failure, unspecified; Z95.5 Presence of coronary angioplasty implant and graft; Z95.1 Presence of aortocoronary bypass graft; I25.2 Old myocardial infarction; Z91.030 Bee allergy status; Z91.041 Radiographic dye allergy status; Z79.82 Long term (current) use of aspirin; Z79.899 Other long term (current) drug therapy; Z71.6 Tobacco abuse counseling; Y93.89 Activity, other specified; Y92.098 Other place in other non-institutional residence as the place of occurrence of the external cause; Y99.8 Other external cause status; Z71.41 Alcohol abuse counseling and surveillance of alcoholic; Z71.51 Drug abuse counseling and surveillance of drug abuser
CPT/HCPCS: 36415; 70450; 71046; 78452; 80048; 80061; 80307; 80320; 82962; 84484; 85007; 85025; 85610; 85730; 93005; 93010; 93017; 93306; 93880; 96374; 99406; G0378; A9270-GY; A9502; G0480; J1650; J2270; J7030

== ENCOUNTER 2019-01-27 19:32 | Emergency (ER) | payer MEDICARE ==
--- NOTE | 2019-01-27 19:38 | Emergency Department Report ---
Blank Doc - Documentation Documentation: 68-year-old male that presents with chest pain and SOB. This initial assessment/diagnostic orders/clinical plan/treatment(s) is/are subject to change based on patient's health status, clinical progression and re- assessment by fellow clinical providers in the ED. Further treatment and workup at subsequent clinical providers discretion. Patient/guardians urged not to elope from the ED as their condition may be serious if not clinically assessed and managed. Initial orders include: 1- Patient sent to MAIN ED for further evaluation and treatment 2- labs 3- EKG 4- CXR
[2019-01-27 20:17] LABS: Basophils # (Auto) 0.1 K/mm3 (0.0-0.1); Basophils % (Auto) 1.4 % (0.0-1.8); Eosinophils % (Auto) 0.2 % (0.0-4.3); Hematocrit 48.2 % (35.5-45.6); Hemoglobin 15.8 gm/dl (11.8-15.2); Lymphocytes # (Auto) 1.7 K/mm3 (1.2-5.4); Lymphocytes % (Auto) 29.9 % (13.4-35.0); Mean Corpuscular HGB Conc 33 % (32-34); Mean Corpuscular Volume 88 fl (84-94); Monocytes # (Auto) 0.9 K/mm3 (0.0-0.8); Monocytes % (Auto) 14.7 % (0.0-7.3); Platelet Count 180 K/mm3 (140-440); Red Blood Count 5.45 M/mm3 (3.65-5.03); Red Cell Distribution Width 13.8 % (13.2-15.2)
[2019-01-27 20:28] LABS: INR 1.38 (0.87-1.13)
[2019-01-27 20:36] LABS: Alanine Aminotransferase 67 units/L (7-56); Albumin 4.6 g/dL (3.9-5); BUN/Creatinine Ratio 20; Blood Urea Nitrogen 24 mg/dL (9-20); Calcium 10.6 mg/dL (8.4-10.2); Hemolysis Index 8
--- NOTE | 2019-01-27 21:53 | Emergency Department Report ---
HPI - General Chief Complaint: Chest Pain Time Seen by Provider: 01/27/19 19:38 - HPI HPI: Room 19 The patient is a 68-year-old male presenting with chief complaint of chest pain. The patient states today at 15:00 he developed substernal chest pain described as "thudding" in nature. States has been constant and associated with shortness of breath. Patient denies nausea/vomiting or diaphoresis. Patient admits to cocaine use stating he last used 5 days ago. Patient currently denies chest pain. Patient states he had a stress test approximately 2 months ago and his last cardiac catheterization occurred over 5 years ago Location: [See above] Duration: [See above] Quality: [See above] Severity: [See above] Timing: [See above] Context: [See above] Modifying factors: [See above] Associated signs and symptoms: [see above] ED Past Medical Hx - Past Medical History Previous Medical History?: Yes Hx Hypertension: Yes Hx Heart Attack/AMI: Yes Hx Congestive Heart Failure: Yes Hx COPD: Yes - Surgical History Hx Coronary Stent: Yes (2013) Hx Open Heart Surgery: Yes (2012) Additional Surgical History: heart bypass with 3 stents, - Family History Family history: no significant - Social History Smoking Status: Current Every Day Smoker Substance Use Type: Alcohol (Rarely), Cocaine - Medications Home Medications: Home Medications Medication Instructions Recorded Confirmed Last Taken Type Aspirin EC [Halfprin EC] 81 mg PO DAILY #30 tablet 02/15/18 11/21/18 Unknown Rx AtorvaSTATin [Lipitor] 40 mg PO QHS #30 tablet 02/15/18 11/21/18 Unknown Rx Folic Acid [Folvite] 1 mg PO QDAY #30 tablet 02/15/18 11/21/18 Unknown Rx Multivitamin Tab [Multiple Vitamin 1 each PO QDAY #30 tablet 02/15/18 11/21/18 Unknown Rx TAB (Theragran)] Nicotine [Habitrol] 21 mg TD QDAY PRN #15 patch 02/15/18 11/21/18 Unknown Rx Thiamine [Vitamin B-1] 100 mg PO QDAY #30 tablet 02/15/18 11/21/18 Unknown Rx Nystas/Diphen/Xyl Visc/Mylanta 30 ml MM BID PRN #1 udc 07/25/18 11/21/18 Unknown Rx [Magic Mouthwash] Meclizine [Antivert] 25 mg PO Q8H PRN #30 tablet 11/24/18 Unknown Rx levETIRAcetam [Keppra TAB] 500 mg PO BID #60 tablet 11/24/18 Unknown Rx ALBUTEROL Inhaler (OR & NICU) 2 puff IH QID PRN #8.5 gram 01/27/19 Unknown Rx [ProAir HFA Inhaler] Nitroglycerin (Nf) [Nitrostat] 0.3 mg SL Q5MIN PRN #30 tablet 01/27/19 Unknown Rx ED Review of Systems ROS: Stated complaint: HEART PAIN Other details as noted in HPI Constitutional: denies: diaphoresis Eyes: denies: eye pain ENT: denies: throat pain Respiratory: shortness of breath Cardiovascular: chest pain Endocrine: no symptoms reported Gastrointestinal: denies: nausea, vomiting Genitourinary: denies: dysuria Musculoskeletal: denies: back pain Neurological: denies: headache Physical Exam - Physical Exam Vital Signs: Vital Signs 01/27/19 19:37 Temperature 98.2 F Pulse Rate 107 H Respiratory 20 Rate Blood Pressure 156/113 O2 Sat by Pulse 96 Oximetry Physical Exam: GENERAL: The patient is well-developed well-nourished male sitting on stretcher not appearing to be in acute distress. [] HEENT: Normocephalic. Atraumatic. Extraocular motions are intact. Patient has moist mucous membranes. NECK: Supple. Trachea midline CHEST/LUNGS: Clear to auscultation. There is no respiratory distress noted. HEART/CARDIOVASCULAR: Regular. There is no tachycardia. There is no gallop rub or murmur. ABDOMEN: Abdomen is soft, nontender. Patient has normal bowel sounds. There is no abdominal distention. SKIN: There is no rash. There is no edema. There is no diaphoresis. NEURO: The patient is awake, alert, and oriented. The patient is cooperative. The patient has normal speech MUSCULOSKELETAL: There is no evidence of acute injury. ED Course Vital Signs 01/27/19 19:37 Temperature 98.2 F Pulse Rate 107 H Respiratory 20 Rate Blood Pressure 156/113 O2 Sat by Pulse 96 Oximetry ED Medical Decision Making - Lab Data Result diagrams: 01/27/19 19:49 01/27/19 19:49 Laboratory Tests 01/27/19 01/27/19 01/27/19 19:49 19:49 19:49 WBC 5.8 RBC 5.45 H Hgb 15.8 H Hct 48.2 H MCV 88 MCH 29 MCHC 33 RDW 13.8 Plt Count 180 Lymph % (Auto) 29.9 [place] % (Auto) 14.7 H Eos % (Auto) 0.2 Baso % (Auto) 1.4 Lymph # 1.7 [place] # 0.9 H Eos # 0.0 Baso # 0.1 Seg Neutrophils % 53.8 Seg Neutrophils # 3.1 PT 16.8 H INR 1.38 H APTT 26.0 Sodium 135 L Potassium 4.7 Chloride 94.4 L Carbon Dioxide 20 L Anion Gap 25 BUN 24 H Creatinine 1.2 Estimated GFR > 60 BUN/Creatinine Ratio 20 Glucose 91 Calcium 10.6 H Total Bilirubin 0.90 AST 66 H ALT 67 H Alkaline Phosphatase 82 Troponin T < 0.010 Total Protein 9.3 H Albumin 4.6 Albumin/Globulin Ratio 1.0 - EKG Data -: EKG Interpreted by Me EKG shows normal: sinus rhythm Rate: normal - EKG Data When compared to previous EKG there are: changes noted Interpretation: nonspecific ST-T wave nae (new T-wave inversions in leads V5, V6) - Radiology Data Radiology results: image reviewed (chest x-ray) interpreted by me: Chest x-ray-no definite focal infiltrates, no pneumothorax - Medical Decision Making I discussed with the patient at length my concern for his presentation given his medical history and social history. Patient verbalized understanding of increased risk of increased morbidity and/or mortality should he leave the hospital AGAINST MEDICAL ADVICE. Patient advised to return should he change his mind - Differential Diagnosis ACS, pericarditis, GERD Critical care attestation.: If time is entered above; I have spent that time in minutes in the direct care of this critically ill patient, excluding procedure time. ED Disposition Clinical Impression: Chest pain, T wave inversion in EKG, Cocaine use Disposition: - LEFT AGAINST MED ADVICE Is pt being admited?: No Does the pt Need Aspirin: No Condition: Undetermined Instructions: Chest Pain (ED) Additional Instructions: Return to the emergency department should you develop worsening symptoms, inability to tolerate food or liquids, high fever or any other concerns Prescriptions: Nitroglycerin (Nf) [Nitrostat] 0.3 mg SL Q5MIN PRN #30 tablet PRN Reason: Chest Pain ALBUTEROL Inhaler (OR & NICU) [ProAir HFA Inhaler] 2 puff IH QID PRN #8.5 gram PRN Reason: Shortness Of Breath Referrals: MARI DUNCAN MD [Staff Physician] - MICHAEL Forms: AMA Form Time of Disposition: 21:55 (patient leaving AMA)
[2019-01-27 21:55] VITALS: BP 167/122
--- NOTE | 2019-01-27 22:02 | XRay Report ---
CHEST 2 VIEWS INDICATION / CLINICAL INFORMATION: Chest Pain. COMPARISON: 11/21/2018 FINDINGS: SUPPORT DEVICES: None. HEART / MEDIASTINUM: Changes of median sternotomy are noted. LUNGS / PLEURA: No significant pulmonary or pleural abnormality. .No pneumothorax. ADDITIONAL FINDINGS: No significant additional findings. IMPRESSION: 1. No significant change. Signer Name: Bakari Edmonds MD Signed: 01/27/2019 9:58 PM Workstation Name: [id number]
== END 2019-01-27 22:00 | disposition left against medical advice (07) ==
LOC: ED 19:32
DX: R07.89 Other chest pain (principal); R94.31 Abnormal electrocardiogram [ECG] [EKG]; F14.10 Cocaine abuse, uncomplicated; I11.0 Hypertensive heart disease with heart failure; I50.9 Heart failure, unspecified; I25.2 Old myocardial infarction; F17.200 Nicotine dependence, unspecified, uncomplicated; F10.10 Alcohol abuse, uncomplicated; Z98.890 Other specified postprocedural states; Z79.899 Other long term (current) drug therapy; Z91.030 Bee allergy status; Z88.8 Allergy status to other drugs, medicaments and biological substances
CPT/HCPCS: 36415; 71046; 80053; 84484; 85025; 85610; 85730; 93005; 93010

== ENCOUNTER 2019-01-28 21:58 | Inpatient (IN) | payer MEDICARE ==
[2019-01-28] MEDS ORDERED: ASPIRIN 325 MG TAB PO ONE (23:41)
--- NOTE | 2019-01-29 00:09 | Emergency Department Report ---
ED Chest Pain HPI - General Chief Complaint: Chest Pain Stated Complaint: UPPER GI Time Seen by Provider: 01/29/19 00:06 Source: patient Mode of arrival: Ambulatory Limitations: No Limitations - History of Present Illness Initial Comments: Patient is a 68-year-old male that presents emergency room with complaints of chest pain. Patient states he had chest pain shortness of breath that started earlier today. Patient states she was here yesterday and signed out AMA since he was pain free. Patient states he then left here and started doing cocaine a gain and developed chest pain. Patient states his chest pain is a 7 out of 10. Patient states is better with rest and worse with exertion. Patient states she has a cardiac history to include CAD, CHF, hypertension and a CABG with 3 stents. Patient states he had an NE in the past. Patient states he smokes cigarettes. Patient denies alcohol use. Patient denies other drug use. Patient states his shortness of breath is improving as he rests. MD Complaint: chest pain Onset: during exertion Pain Location: substernal, left chest Pain Radiation: none Severity: severe Severity scale (0 -10): 7 Quality: sharp Consistency: constant Improves With: rest Worsens With: exertion, other (cocaine) re: dyspnea. denies: nausea, vomting, diaphoresis, sense of impending doom Other Symptoms: denies: cough, fever, syncope, rash, acid taste in mouth, leg swelling, palpitations, burping Treatments Prior to Arrival: aspirin Aspirin use within the Past 7 Days: (1) Yes - Related Data On Oral Contraceptives: No Previous Rx's Medication Instructions Recorded Last Taken Type Multivitamin Tab [Multiple Vitamin 1 each PO QDAY #30 tablet 02/15/18 Unknown Rx TAB (Theragran)] Thiamine [Vitamin B-1] 100 mg PO QDAY #30 tablet 02/15/18 Unknown Rx Nystas/Diphen/Xyl Visc/Mylanta 30 ml MM BID PRN #1 udc 07/25/18 Unknown Rx [Magic Mouthwash] Meclizine [Antivert] 25 mg PO Q8H PRN #30 tablet 11/24/18 Unknown Rx Nitroglycerin (Nf) [Nitrostat] 0.3 mg SL Q5MIN PRN #30 tablet 01/27/19 Unknown Rx ALBUTEROL Inhaler (OR & NICU) 2 puff IH QID PRN #8.5 gram 01/31/19 Unknown Rx [ProAir HFA Inhaler] Aspirin EC [Halfprin EC] 81 mg PO DAILY #30 tablet 01/31/19 Unknown Rx AtorvaSTATin [Lipitor] 40 mg PO QHS #30 tablet 01/31/19 Unknown Rx Folic Acid [Folvite] 1 mg PO QDAY #30 tablet 01/31/19 Unknown Rx Metoprolol [Lopressor TAB] 12.5 mg PO BID #60 tablet 01/31/19 Unknown Rx Nicotine [Habitrol] 21 mg TD QDAY PRN #30 patch 01/31/19 Unknown Rx levETIRAcetam [Keppra TAB] 500 mg PO BID #60 tablet 01/31/19 Unknown Rx Allergies Allergy/AdvReac Type Severity Reaction Status Date / Time bee venom protein (honey bee) Allergy Shortness Verified 07/25/18 01:25 of Breath iv contrast Allergy Shortness Uncoded 06/26/17 17:46 of Breath Heart Score - HEART Score History: Moderately suspicious EKG: Non-specific Age: > 65 Risk factors: > 3 risk factors or hx of atherosclerotic disease Troponin: < normal limit HEART Score: 6 ED Review of Systems ROS: Stated complaint: UPPER GI Other details as noted in HPI Constitutional: denies: chills, fever Eyes: denies: eye pain, eye discharge, vision change ENT: denies: ear pain, throat pain Respiratory: denies: cough, shortness of breath, wheezing Cardiovascular: chest pain. denies: palpitations Endocrine: no symptoms reported Gastrointestinal: denies: abdominal pain, nausea, diarrhea Genitourinary: denies: urgency, dysuria Musculoskeletal: denies: back pain, joint swelling, arthralgia Skin: denies: rash, lesions Neurological: denies: headache, weakness, paresthesias Psychiatric: denies: anxiety, depression Hematological/Lymphatic: denies: easy bleeding, easy bruising ED Past Medical Hx - Past Medical History Previous Medical History?: Yes Hx Hypertension: Yes Hx Heart Attack/AMI: Yes Hx Congestive Heart Failure: Yes Hx COPD: Yes - Surgical History Past Surgical History?: Yes Hx Coronary Stent: Yes (2013) Hx Open Heart Surgery: Yes (2012) Additional Surgical History: heart bypass with 3 stents, - Social History Smoking Status: Current Every Day Smoker Substance Use Type: Cocaine, Marijuana - Medications Home Medications: Home Medications Medication Instructions Recorded Confirmed Last Taken Type Multivitamin Tab [Multiple Vitamin 1 each PO QDAY #30 tablet 02/15/18 01/29/19 Unknown Rx TAB (Theragran)] Thiamine [Vitamin B-1] 100 mg PO QDAY #30 tablet 02/15/18 01/29/19 Unknown Rx Nystas/Diphen/Xyl Visc/Mylanta 30 ml MM BID PRN #1 udc 07/25/18 01/29/19 Unknown Rx [Magic Mouthwash] Meclizine [Antivert] 25 mg PO Q8H PRN #30 tablet 11/24/18 01/29/19 Unknown Rx Nitroglycerin (Nf) [Nitrostat] 0.3 mg SL Q5MIN PRN #30 tablet 01/27/19 01/29/19 Unknown Rx ALBUTEROL Inhaler (OR & NICU) 2 puff IH QID PRN #8.5 gram 01/31/19 Unknown Rx [ProAir HFA Inhaler] Aspirin EC [Halfprin EC] 81 mg PO DAILY #30 tablet 01/31/19 Unknown Rx AtorvaSTATin [Lipitor] 40 mg PO QHS #30 tablet 01/31/19 Unknown Rx Folic Acid [Folvite] 1 mg PO QDAY #30 tablet 01/31/19 Unknown Rx Metoprolol [Lopressor TAB] 12.5 mg PO BID #60 tablet 01/31/19 Unknown Rx Nicotine [Habitrol] 21 mg TD QDAY PRN #30 patch 01/31/19 Unknown Rx levETIRAcetam [Keppra TAB] 500 mg PO BID #60 tablet 01/31/19 Unknown Rx ED Physical Exam - General Limitations: No Limitations ED Course Vital Signs 01/28/19 01/29/19 01/29/19 22:19 01:54 03:23 Temperature 98.1 F Pulse Rate 82 80 Respiratory 20 16 15 Rate Blood Pressure 115/89 O2 Sat by Pulse 95 Oximetry 01/29/19 01/29/19 01/29/19 03:30 04:00 04:31 Temperature Pulse Rate 77 71 76 Respiratory 17 18 14 Rate Blood Pressure 129/86 121/94 120/64 O2 Sat by Pulse Oximetry 01/29/19 01/29/19 05:00 06:00 Temperature Pulse Rate 68 Respiratory 16 Rate Blood Pressure 119/82 95/55 O2 Sat by Pulse Oximetry - Reevaluation(s) Reevaluation #1: I discussed all results the patient. I discussed plan of care with patient. Patient will be admitted to the hospitalist service. Patient agrees with plan of care. 01/29/19 01:59 - Consultations Consultation #1: Hospitalist consult for admission. Hospitalist to admit patient. 01/29/19 01:59 NEEL score - Neel Score Age > 65: (1) Yes Aspirin use within the Past 7 Days: (1) Yes 3 or more CAD Risk Factors: (1) Yes 2 or more Angina events in past 24 hrs: (1) Yes Known CAD with more than 50% Stenosis: (0) No Elevated Cardiac Markers: (0) No ST Deviation Greater than 0.5mm: (0) No NEEL Score: 4 ED Medical Decision Making - Lab Data Result diagrams: 01/29/19 06:09 01/29/19 03:41 - EKG Data -: EKG Interpreted by Me EKG shows normal: sinus rhythm, axis, intervals, QRS complexes, ST-T waves Rate: normal - Radiology Data Radiology results: report reviewed, image reviewed interpreted by me: No acute findings on chest x-ray. - Medical Decision Making Patient is a 68-year-old male presents [facility] with complaints of chest pain after smoking cigarettes and doing cocaine. Patient has significant coronary artery disease to include a CABG and 3 stents. Patient admitted to the hospitalist service for further evaluation and treatment and rule out ACS. Patient initial cardiac workup negative. Chest x-ray negative. EKG unchanged. Patient agrees to be admitted. - Differential Diagnosis chest pain. ACS. Cocaine use. Critical care attestation.: If time is entered above; I have spent that time in minutes in the direct care of this critically ill patient, excluding procedure time. ED Disposition Clinical Impression: Cocaine use Chest pain Qualifiers: Chest pain type: unspecified Qualified Code(s): R07.9 - Chest pain, unspecified Coronary artery disease Qualifiers: Coronary Disease-Associated Artery/Lesion type: unspecified vessel or lesion type [place] vs. transplanted heart: [place] heart Associated angina: angina presence unspecified Qualified Code(s): I25.10 - Atherosclerotic heart disease of [place] coronary artery without angina pectoris Disposition: OP ADMIT IP TO THIS HOSP Is pt being admited?: Yes Does the pt Need Aspirin: No Condition: Fair Time of Disposition: 01:57
--- NOTE | 2019-01-29 00:14 | XRay Report ---
CHEST 1 VIEW 01/28/2019 11:47 PM INDICATION / CLINICAL INFORMATION: Chest Pain. COMPARISON: 2 views of the chest from 01/27/2019. FINDINGS: SUPPORT DEVICES: None. HEART / MEDIASTINUM: Normal heart size with similar sternotomy changes. LUNGS / PLEURA: No significant pulmonary or pleural abnormality. No pneumothorax. ADDITIONAL FINDINGS: No significant additional findings. IMPRESSION: 1. No acute abnormality of the chest. Signer Name: Aleksandr Georges MD Signed: 01/29/2019 12:09 AM Workstation Name: [id number]
[2019-01-29 01:04] LABS: Hematocrit 42.7 % (35.5-45.6); Hemoglobin 14.6 gm/dl (11.8-15.2); Mean Corpuscular HGB Conc 34 % (32-34); Mean Corpuscular Volume 88 fl (84-94); Platelet Count 161 K/mm3 (140-440); Red Blood Count 4.89 M/mm3 (3.65-5.03); Red Cell Distribution Width 13.6 % (13.2-15.2)
[2019-01-29 01:46] LABS: BUN/Creatinine Ratio 21; Blood Urea Nitrogen 27 mg/dL (9-20); Calcium 9.7 mg/dL (8.4-10.2); Hemolysis Index 9
--- NOTE | 2019-01-29 02:20 | History and Physical Report ---
History of Present Illness Date of examination: 01/29/19 History of present illness: 68-year-old man with a history of coronary artery disease, CHF, hypertension, COPD substance abuse came to the emergency room for chest pain started 2 days ago. Pain is in the left chest which she describes as a dull sensation, constan t 4 hours, intensity 5/10, no radiation, better with pain medication given in the emergency room, cannot identify exacerbating factors. Denies nausea vomiting, shortness of breath, diaphoresis or palpitation. He was seen here in the emergency yesterday for the same, admission was recommended to him but he left the hospital because he felt better. Last used cocaine on Thursday, he had a stress test in November which was negative. Patient is being admitted for chest pain Review Of Systems: Constitutional: no weight loss Ears, eyes, nose, mouth and throat: no nasal congestion, no nasal discharge, no sinus pressure, blurry vision, diplopia Neck: No neck pain or rigidity. Cardiovascular: No palpitations Respiratory: No shortness of breath, cough Gastrointestinal: No abdominal pain, hematochezia Genitourinary : no dysuria, frequency , hematuria Musculoskeletal: no muscle ache Integumentary: no rash, no pruritis Neurological: no parathesias, focal weakness Endocrine: no cold or heat intolerance, no polyuria or polydipsia Hematologic/Lymphatic: no easy bruising, no easy bleeding, no gland swelling Allergic/Immunologic: no urticaria, no angioedema. PAST MEDICAL HISTORY:coronary artery disease, CHF, hypertension, COPD PAST SURGICAL HISTORY: CABG FAMILY HISTORY: Hypertension SOCIAL HISTORY: Denies alcohol, smokes half pack a day, cocaine use Medications and Allergies Allergies Allergy/AdvReac Type Severity Reaction Status Date / Time bee venom protein (honey bee) Allergy Shortness Verified 07/25/18 01:25 of Breath iv contrast Allergy Shortness Uncoded 06/26/17 17:46 of Breath Home Medications Medication Instructions Recorded Confirmed Last Taken Type Aspirin EC [Halfprin EC] 81 mg PO DAILY #30 tablet 02/15/18 01/29/19 Unknown Rx AtorvaSTATin [Lipitor] 40 mg PO QHS #30 tablet 02/15/18 01/29/19 Unknown Rx Folic Acid [Folvite] 1 mg PO QDAY #30 tablet 02/15/18 01/29/19 Unknown Rx Multivitamin Tab [Multiple Vitamin 1 each PO QDAY #30 tablet 02/15/18 01/29/19 Unknown Rx TAB (Theragran)] Nicotine [Habitrol] 21 mg TD QDAY PRN #15 patch 02/15/18 01/29/19 Unknown Rx Thiamine [Vitamin B-1] 100 mg PO QDAY #30 tablet 02/15/18 01/29/19 Unknown Rx Nystas/Diphen/Xyl Visc/Mylanta 30 ml MM BID PRN #1 udc 07/25/18 01/29/19 Unknown Rx [Magic Mouthwash] Meclizine [Antivert] 25 mg PO Q8H PRN #30 tablet 11/24/18 01/29/19 Unknown Rx levETIRAcetam [Keppra TAB] 500 mg PO BID #60 tablet 11/24/18 01/29/19 Unknown Rx ALBUTEROL Inhaler (OR & NICU) 2 puff IH QID PRN #8.5 gram 01/27/19 01/29/19 Unknown Rx [ProAir HFA Inhaler] Nitroglycerin (Nf) [Nitrostat] 0.3 mg SL Q5MIN PRN #30 tablet 01/27/19 01/29/19 Unknown Rx Exam - Physical Exam Narrative exam: Gen. appearance: Patient lying in bed in no acute distress HEENT: Normocephalic/atraumatic, pupils equal round reactive to light, extra occular movement intact, no scleral icterus, no JVD or thyromegaly or nodule, neck is supple, mucous membrane moist, no erythema or exudate Heart: S1-S2, regular rate and rhythm Lungs: Clear to auscultation bilateral breathing comfortable Abdomen: Positive bowel sounds, nontender, nondistended, no organomegaly Extremities: No edema, cyanosis, clubbing Neuro:: Oriented 3 , cranial nerves II-12 intact, speech, motor intact Skin: No rash, nodules, warm dry - Constitutional Vitals: Temp Pulse Resp BP Pulse Ox 98.1 F 82 20 115/89 95 01/28/19 22:19 01/28/19 22:19 01/28/19 22:19 01/28/19 22:19 01/28/19 22:19 Results - Labs CBC & Chem 7: 01/29/19 00:34 01/29/19 03:41 Labs: Abnormal lab results 01/29/19 Range/Units 00:34 Sodium 133 L (137-145) mmol/L Carbon Dioxide 20 L (22-30) mmol/L BUN 27 H (9-20) mg/dL - Imaging and Cardiology EKG: image reviewed Chest x-ray: report reviewed Assessment and Plan Assessment Chest pain with coronary artery disease Check cardiac enzymes, consult cardiology percocet for pain, Status post stress test in November Acute renal insufficiency Start gentle IV fluid, monitor kidney function CHF,chronic, diastolic Stable, hold Lasix for now given the worsening renal function hypertension Continue outpatient medications COPD , stable
[2019-01-29] MEDS ORDERED: ACETAMINOPHEN 325 MG TAB PO PRN (02:23)
[2019-01-29] MEDS ORDERED: oxyCODONE /ACETAMINOPHEN 5-325MG TAB PO PRN (02:23)
[2019-01-29] MEDS ORDERED: ONDANSETRON 4 MG/2 ML INJ IV PRN (02:23)
[2019-01-29] MEDS ORDERED: SODIUM CHLORIDE 0.45% IV SCH (03:00)
[2019-01-29 03:12] LABS: Basophils % (Manual) 0 % (0.0-1.8); Total Cells Counted 100
[2019-01-29 03:16] LABS: Large Platelets Rare; Platelet Estimate Consistent w Auto; RBC Morphology Normal
[2019-01-29 04:00] LABS: Creatine Kinase MB 15.3 ng/mL (0.0-4.0)
[2019-01-29 04:12] LABS: Bacteria,Urine 1+ /HPF (Negative); Bilirubin,Urine NEG (Negative); Blood,Urine NEG (Negative); Color,Urine Amber (Yellow); Mucus,Urine 1+ /HPF
[2019-01-29 04:29] LABS: Amphetamine Screen,Urine PRESUMPTIVE NEGATIVE; Benzodiazepines Screen,Urine PRESUMPTIVE NEGATIVE; Cannabinoid Screen,Urine PRESUMPTIVE NEGATIVE; Methadone Screen,Urine PRESUMPTIVE NEGATIVE; Opiate Screen,Urine PRESUMPTIVE NEGATIVE
[2019-01-29 04:34] LABS: BUN/Creatinine Ratio 21; Blood Urea Nitrogen 27 mg/dL (9-20); Calcium 9.8 mg/dL (8.4-10.2); Hemolysis Index 5
[2019-01-29 04:34] LABS: Cocaine Screen,Urine PRESUMPTIVE POSITIVE
[2019-01-29 07:00] LABS: Hematocrit 43.4 % (35.5-45.6); Hemoglobin 14.3 gm/dl (11.8-15.2); Mean Corpuscular HGB Conc 33 % (32-34); Mean Corpuscular Volume 88 fl (84-94); Platelet Count 155 K/mm3 (140-440); Red Blood Count 4.96 M/mm3 (3.65-5.03); Red Cell Distribution Width 13.5 % (13.2-15.2)
[2019-01-29 09:07] LABS: Creatine Kinase MB 12.2 ng/mL (0.0-4.0)
--- NOTE | 2019-01-29 09:15 | Consultation ---
History of Present Illness Consult date: 01/29/19 Consult reason: chest pain History of present illness: 68-year-old man with a history of IL/coronary artery disease s/p CABG s/p PCI x 3 remotely, CHF with unknown EF, hypertension, COPD substance abuse came to the emergency room for chest pain started 2 days ago. Pain is in the left chest which she describes as a dull sensation, constant 4 hours, intensity 5/10, no radiation, better with pain medication given in the emergency room. States chest pain is dissimilar from previous cardiac chest pain. 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 Non-compliant with medical therapy. Denies nausea vomiting, shortness of breath, diaphoresis or palpitation. The patient denies shortness of breath, orthopena, pnd, palpitations, dizziness or syncope. He was seen here in the emergency thursday for the same, admission was recommended to him but he left the hospital because he felt better. Last used cocaine on Thursday. Past History Past Medical History: CAD, hypertension, other (CHF) Past Surgical History: CABG, Other (PCI x 3) Social history: smoking, alcohol abuse, other (cocaine) Medications and Allergies Allergies Allergy/AdvReac Type Severity Reaction Status Date / Time bee venom protein (honey bee) Allergy Shortness Verified 07/25/18 01:25 of Breath iv contrast Allergy Shortness Uncoded 06/26/17 17:46 of Breath Home Medications Medication Instructions Recorded Confirmed Last Taken Type Aspirin EC [Halfprin EC] 81 mg PO DAILY #30 tablet 02/15/18 01/29/19 Unknown Rx AtorvaSTATin [Lipitor] 40 mg PO QHS #30 tablet 02/15/18 01/29/19 Unknown Rx Folic Acid [Folvite] 1 mg PO QDAY #30 tablet 02/15/18 01/29/19 Unknown Rx Multivitamin Tab [Multiple Vitamin 1 each PO QDAY #30 tablet 02/15/18 01/29/19 Unknown Rx TAB (Theragran)] Nicotine [Habitrol] 21 mg TD QDAY PRN #15 patch 02/15/18 01/29/19 Unknown Rx Thiamine [Vitamin B-1] 100 mg PO QDAY #30 tablet 02/15/18 01/29/19 Unknown Rx Nystas/Diphen/Xyl Visc/Mylanta 30 ml MM BID PRN #1 udc 07/25/18 01/29/19 Unknown Rx [Magic Mouthwash] Meclizine [Antivert] 25 mg PO Q8H PRN #30 tablet 11/24/18 01/29/19 Unknown Rx levETIRAcetam [Keppra TAB] 500 mg PO BID #60 tablet 11/24/18 01/29/19 Unknown Rx ALBUTEROL Inhaler (OR & NICU) 2 puff IH QID PRN #8.5 gram 01/27/19 01/29/19 Unknown Rx [ProAir HFA Inhaler] Nitroglycerin (Nf) [Nitrostat] 0.3 mg SL Q5MIN PRN #30 tablet 01/27/19 01/29/19 Unknown Rx Active Meds: Active Medications Acetaminophen (Tylenol) 650 mg PO Q4H PRN PRN Reason: Pain MILD(1-3)/Fever >100.5/LYMAN Enoxaparin Sodium (Enoxaparin) 40 mg SUB-Q QDAY@1000 RADHA Ondansetron HCl (Zofran) 4 mg IV Q8H PRN PRN Reason: Nausea And Vomiting Oxycodone/Acetaminophen (Percocet 5/325) 1 tab PO Q6H PRN PRN Reason: Pain, Moderate (4-6) Sodium Chloride (Sodium Chloride Flush Syringe 10 Ml) 10 ml IV BID RADHA Sodium Chloride (Sodium Chloride Flush Syringe 10 Ml) 10 ml IV PRN PRN PRN Reason: LINE FLUSH Review of Systems All systems: negative (pertient positives in HPI) Physical Examination Vital Signs Temp Pulse Resp BP Pulse Ox 98.1 F 82 20 115/89 95 01/28/19 22:19 01/28/19 22:19 01/28/19 22:19 01/28/19 22:19 01/28/19 22:19 General appearance: no acute distress HEENT: Positive: PERRL, EOMI Neck: Positive: neck supple Cardiac: Positive: Reg Rate and Rhythm, S1/S2 Lungs: Positive: Normal Exam, clear to auscultation Neuro: Positive: Grossly Intact Abdomen: Positive: Unremarkable Extremities: Present: normal Results 01/29/19 06:09 01/29/19 03:41 Cardiac Enzymes 01/29/19 01/29/19 Range/Units 02:33 08:16 CK-MB (CK-2) 15.3 H 12.2 H (0.0-4.0) ng/mL CBC 01/29/19 01/29/19 Range/Units 00:34 06:09 WBC 6.9 5.5 (4.5-11.0) K/mm3 RBC 4.89 4.96 (3.65-5.03) M/mm3 Hgb 14.6 14.3 (11.8-15.2) gm/dl Hct 42.7 43.4 (35.5-45.6) % Plt Count 161 155 (140-440) K/mm3 Comprehensive Metabolic Panel 01/29/19 01/29/19 Range/Units 00:34 03:41 Sodium 133 L 134 L (137-145) mmol/L Potassium 3.7 D 3.9 (3.6-5.0) mmol/L Chloride 99.2 97.9 L (98-107) mmol/L Carbon Dioxide 20 L 22 (22-30) mmol/L BUN 27 H 27 H (9-20) mg/dL Creatinine 1.3 1.3 (0.8-1.5) mg/dL Glucose 96 84 (75-100) mg/dL Calcium 9.7 9.8 (8.4-10.2) mg/dL Assessment and Plan 1. Chest pain - troponins negative . EKG without ischemic changes. Negative previous stress test done approximately 1 year ago. Will restart appropriate medical therapy. Would then consider [facility] if patient continues to have chest pain AND is able to demonstrate complaince with medical therapy AND is able to remain drug free. Currently the patient is a poor candidate for invasive study due to drug abuse and non-compliance. 2. coronary artery disease s/p previous [place] s/p CABG and PCI x3 remotely - start appropriate goal directed medical therapy. Check echo. 3. Acute renal insufficiency - management per primary 4. CHF,chronic, diastolic - recommend goal directed medical therapy. check echo. 5. hypertension - maximze medical therapy as blood pressure requires 6. COPD , stable
[2019-01-29] MEDS ORDERED: ENOXAPARIN 30 MG/0.3 ML INJ SUB-Q SCH (10:00)
--- NOTE | 2019-01-29 10:52 | Event Note ---
Date: 01/29/19 Patient seen and examined this morning medical records reviewed Patient was admitted early this morning with chest pain Patient's drug screen is positive for cocaine Evaluated by cardiology, medications optimized If patient continues to have chest pain cardiology is considering ischemia work- up Agree with the current management, will closely monitor the patient and adjust management as needed Plan of care reviewed with the patient and his nurse
[2019-01-29 11:02] LABS: Basophils % (Manual) 0 % (0.0-1.8); Eosinophils % (Manual) 0 % (0.0-4.3); Total Cells Counted 100
[2019-01-29 11:03] LABS: Platelet Estimate Consistent w Auto; Target Cells Few
[2019-01-29] MEDS: ENOXAPARIN 40 MG/0.4 ML INJ SUB-Q SCH (11:43)
[2019-01-29] MEDS: ASPIRIN 81 MG TAB CHEW PO SCH (11:43)
[2019-01-29] MEDS: METOPROLOL TARTRATE 25 MG TAB PO SCH ×2 (16:16→22:45)
--- NOTE | 2019-01-30 09:02 | Progress Note ---
Assessment and Plan 1. Chest pain - troponins negative . EKG without ischemic changes. Negative previous stress test done approximately 1 year ago. Will restart appropriate medical therapy. Would then consider [facility] if patient continues to have chest pain AND is able to demonstrate complaince with medical therapy AND is able to remain drug free. Currently the patient is a poor candidate for invasive study due to drug abuse and non-compliance. 2. coronary artery disease s/p previous [place] s/p CABG and PCI x3 remotely - continue appropriate goal directed medical therapy. echo pending. 3. Acute renal insufficiency - management per primary 4. CHF,chronic, diastolic - recommend goal directed medical therapy. check echo. 5. hypertension - maximze medical therapy as blood pressure requires 6. COPD , stable Subjective Date of service: 01/30/19 Interval history: No acute events. Resting comfortably. No chest pain or SOB. Objective Vital Signs Temp Pulse Resp BP Pulse Ox 01/30/19 08:35 93 01/30/19 04:55 98.2 F 01/30/19 04:54 47 L 18 117/79 93 01/30/19 00:59 98.4 F 01/30/19 00:38 58 L 18 127/93 94 01/29/19 22:45 79 120/90 01/29/19 22:00 58 L 18 01/29/19 20:31 98.4 F 01/29/19 20:29 79 18 120/90 92 01/29/19 17:24 92 H 112/85 91 01/29/19 10:00 74 - Physical Examination HEENT: Positive: PERRL, EOMI Neck: Positive: neck supple Neuro: Positive: Grossly Intact Abdomen: Positive: Unremarkable Extremities: Present: normal - Labs and Meds Cardiac Enzymes 01/29/19 Range/Units 08:16 CK-MB (CK-2) 12.2 H (0.0-4.0) ng/mL - Imaging and Cardiology EKG: image reviewed
[2019-01-30] MEDS: ENOXAPARIN 40 MG/0.4 ML INJ SUB-Q SCH (11:08)
[2019-01-30] MEDS: ASPIRIN 81 MG TAB CHEW PO SCH (11:09)
[2019-01-30] MEDS: METOPROLOL TARTRATE 25 MG TAB PO SCH ×2 (11:09→21:02)
--- NOTE | 2019-01-30 18:52 | Progress Note ---
Assessment and Plan Assessment and plan: -- Chest pain; rule out acute coronary syndrome Serial cardiac enzymes negative, EKG no acute ST-T changes Patient had a negative stress test 1 year ago, Management per cardiology --History of coronary artery disease status post CABG and PCI x3 ; Continue current cardiac medications , cardiology following --Cocaine abuse; probably the cause of atypical chest pain Counseling, advised to quit recreational drug use Patient verbalized understanding --Acute on chronic diastolic congestive heart failure; Continue heart failure medications, input output monitoring --Hypertension; well controlled Continue current antihypertensives and PRN medications --History of COPD; stable --Ongoing tobacco use; smoking cessation counseling Nicotine patch as needed --DVT prophylaxis; Lovenox Monitor closely and adjust management as needed Patient has multiple risk factors, cardiology evaluation and recommendations noted and appreciated Possible discharge when medically stable Disposition per cardiology Plan of care reviewed with the patient and his nurse History Interval history: Seen and examined this morning medical records reviewed Patient with significant coronary artery disease was admitted through emergency room with chest pain Patient is on appropriate cardiac medications Evaluated by group supervisor yard Today patient feels slightly better denies any chest pain or shortness of breath Vital signs reviewed Hospitalist Physical - Constitutional Vitals: Temp Pulse Resp BP Pulse Ox 98.2 F 47 L 18 117/79 93 01/30/19 04:55 01/30/19 10:00 01/30/19 04:54 01/30/19 04:54 01/30/19 08:35 General appearance: Present: no acute distress, well-nourished - EENT Eyes: Present: PERRL, EOM intact - Neck Neck: Present: supple, normal ROM - Respiratory Respiratory effort: normal Respiratory: bilateral: diminished, negative: rales, rhonchi, wheezing - Cardiovascular Rhythm: regular Heart Sounds: Present: S1 & S2 - Extremities Extremities: no ischemia, No edema - Abdominal General gastrointestinal: soft, non-tender, non-distended, normal bowel sounds - Integumentary Integumentary: Present: clear, warm - Psychiatric Psychiatric: appropriate mood/affect, cooperative - Neurologic Neurologic: CNII-XII intact, moves all extremities Results - Labs CBC & Chem 7: 01/29/19 06:09 01/29/19 03:41 Labs: Laboratory Last Values WBC 5.5 K/mm3 (4.5-11.0) 01/29/19 06:09 RBC 4.96 M/mm3 (3.65-5.03) 01/29/19 06:09 Hgb 14.3 gm/dl (11.8-15.2) 01/29/19 06:09 Hct 43.4 % (35.5-45.6) 01/29/19 06:09 MCV 88 fl (84-94) 01/29/19 06:09 MCH 29 pg (28-32) 01/29/19 06:09 MCHC 33 % (32-34) 01/29/19 06:09 RDW 13.5 % (13.2-15.2) 01/29/19 06:09 Plt Count 155 K/mm3 (140-440) 01/29/19 06:09 Lymph % (Auto) [employer] 01/29/19 06:09 [place] % (Auto) [employer] 01/29/19 00:34 Add Manual Diff Complete 01/29/19 06:09 Total Counted 100 01/29/19 06:09 Seg Neutrophils % [employer] 01/29/19 06:09 Seg Neuts % (Manual) 38.0 % (40.0-70.0) L 01/29/19 06:09 Band Neutrophils % 0 % 01/29/19 06:09 Lymphocytes % (Manual) 52.0 % (13.4-35.0) H 01/29/19 06:09 Reactive Lymphs % (Man) 1.0 % 01/29/19 06:09 Monocytes % (Manual) 9.0 % (0.0-7.3) H 01/29/19 06:09 Eosinophils % (Manual) 0 % (0.0-4.3) 01/29/19 06:09 Basophils % (Manual) 0 % (0.0-1.8) 01/29/19 06:09 Metamyelocytes % 0 % 01/29/19 06:09 Myelocytes % 0 % 01/29/19 06:09 Promyelocytes % 0 % 01/29/19 06:09 Blast Cells % 0 % 01/29/19 06:09 Nucleated RBC % Not Reportable 01/29/19 06:09 Seg Neutrophils # Man 2.1 K/mm3 (1.8-7.7) 01/29/19 06:09 Band Neutrophils # 0.0 K/mm3 01/29/19 06:09 Lymphocytes # (Manual) 2.9 K/mm3 (1.2-5.4) 01/29/19 06:09 Abs React Lymphs (Man) 0.1 K/mm3 01/29/19 06:09 Monocytes # (Manual) 0.5 K/mm3 (0.0-0.8) 01/29/19 06:09 Eosinophils # (Manual) 0.0 K/mm3 (0.0-0.4) 01/29/19 06:09 Basophils # (Manual) 0.0 K/mm3 (0.0-0.1) 01/29/19 06:09 Metamyelocytes # 0.0 K/mm3 01/29/19 06:09 Myelocytes # 0.0 K/mm3 01/29/19 06:09 Promyelocytes # 0.0 K/mm3 01/29/19 06:09 Blast Cells # 0.0 K/mm3 01/29/19 06:09 WBC Morphology Not Reportable 01/29/19 06:09 Hypersegmented Neuts Not Reportable 01/29/19 06:09 Hyposegmented Neuts Not Reportable 01/29/19 06:09 Hypogranular Neuts Not Reportable 01/29/19 06:09 Smudge Cells Not Reportable 01/29/19 06:09 Toxic Granulation Not Reportable 01/29/19 06:09 Toxic Vacuolation Not Reportable 01/29/19 06:09 Dohle Bodies Not Reportable 01/29/19 06:09 Pelger-Huet Anomaly Not Reportable 01/29/19 06:09 Aspen Rods Not Reportable 01/29/19 06:09 Platelet Estimate Consistent w auto 01/29/19 06:09 Clumped Platelets Not Reportable 01/29/19 06:09 Plt Clumps, EDTA Not Reportable 01/29/19 06:09 Large Platelets Not Reportable 01/29/19 06:09 Giant Platelets Not Reportable 01/29/19 06:09 Platelet Satelliting Not Reportable 01/29/19 06:09 Plt Morphology Comment Not Reportable 01/29/19 06:09 RBC Morphology Not Reportable 01/29/19 06:09 Dimorphic RBCs Not Reportable 01/29/19 06:09 Polychromasia Not Reportable 01/29/19 06:09 Hypochromasia Not Reportable 01/29/19 06:09 Poikilocytosis Not Reportable 01/29/19 06:09 Anisocytosis Not Reportable 01/29/19 06:09 Microcytosis Not Reportable 01/29/19 06:09 Macrocytosis Not Reportable 01/29/19 06:09 Spherocytes Not Reportable 01/29/19 06:09 Pappenheimer Bodies Not Reportable 01/29/19 06:09 Sickle Cells Not Reportable 01/29/19 06:09 Target Cells Few 01/29/19 06:09 Tear Drop Cells Not Reportable 01/29/19 06:09 Ovalocytes Not Reportable 01/29/19 06:09 Helmet Cells Not Reportable 01/29/19 06:09 [place] Bodies Not Reportable 01/29/19 06:09 [place] Rings Not Reportable 01/29/19 06:09 Ghanshyam Cells Not Reportable 01/29/19 06:09 Bite Cells Not Reportable 01/29/19 06:09 Crenated Cell Not Reportable 01/29/19 06:09 Elliptocytes Not Reportable 01/29/19 06:09 Acanthocytes (Spur) Not Reportable 01/29/19 06:09 Rouleaux Not Reportable 01/29/19 06:09 Hemoglobin C Crystals Not Reportable 01/29/19 06:09 Schistocytes Not Reportable 01/29/19 06:09 Malaria parasites Not Reportable 01/29/19 06:09 Lior Bodies Not Reportable 01/29/19 06:09 Hem Pathologist Commnt No 01/29/19 06:09 Sodium 134 mmol/L (137-145) L 01/29/19 03:41 Potassium 3.9 mmol/L (3.6-5.0) 01/29/19 03:41 Chloride 97.9 mmol/L (98-107) L 01/29/19 03:41 Carbon Dioxide 22 mmol/L (22-30) 01/29/19 03:41 Anion Gap 18 mmol/L 01/29/19 03:41 BUN 27 mg/dL (9-20) H 01/29/19 03:41 Creatinine 1.3 mg/dL (0.8-1.5) 01/29/19 03:41 Estimated GFR > 60 ml/min 01/29/19 03:41 BUN/Creatinine Ratio 21 % 01/29/19 03:41 Glucose 84 mg/dL (75-100) 01/29/19 03:41 Calcium 9.8 mg/dL (8.4-10.2) 01/29/19 03:41 Total Creatine Kinase 739 units/L (55-170) H 01/29/19 08:16 CK-MB (CK-2) 12.2 ng/mL (0.0-4.0) H 01/29/19 08:16 CK-MB (CK-2) Rel Index 1.6 (0-4) 01/29/19 08:16 Troponin T < 0.010 ng/mL (0.00-0.029) 01/29/19 08:16 Urine Color [place] (Yellow) 01/29/19 03:22 Urine Turbidity Slightly-cloudy (Clear) 01/29/19 03:22 Urine pH 5.0 (5.0-7.0) 01/29/19 03:22 Ur Specific [place] 1.028 (1.003-1.030) 01/29/19 03:22 Urine Protein 30 mg/dl mg/dL (Negative) 01/29/19 03:22 Urine Glucose (UA) Neg mg/dL (Negative) 01/29/19 03:22 Urine Ketones Tr mg/dL (Negative) 01/29/19 03:22 Urine Blood Neg (Negative) 01/29/19 03:22 Urine Nitrite Neg (Negative) 01/29/19 03:22 Urine Bilirubin Neg (Negative) 01/29/19 03:22 Urine Urobilinogen 4.0 mg/dL (<2.0) 01/29/19 03:22 Ur Leukocyte Esterase Neg (Negative) 01/29/19 03:22 Urine WBC (Auto) 3.0 /HPF (0.0-6.0) 01/29/19 03:22 Urine RBC (Auto) 4.0 /HPF (0.0-6.0) 01/29/19 03:22 U Epithel Cells (Auto) 2.0 /HPF (0-13.0) 01/29/19 03:22 Urine Bacteria (Auto) 1+ /HPF (Negative) 01/29/19 03:22 Urine Mucus 1+ /HPF 01/29/19 03:22 Urine Opiates Screen Presumptive negative 01/29/19 03:22 Urine Methadone Screen Presumptive negative 01/29/19 03:22 Ur Barbiturates Screen Presumptive negative 01/29/19 03:22 Ur Phencyclidine Scrn Presumptive negative 01/29/19 03:22 Ur Amphetamines Screen Presumptive negative 01/29/19 03:22 U Benzodiazepines Scrn Presumptive negative 01/29/19 03:22 Urine Cocaine Screen Presumptive positive 01/29/19 03:22 U Marijuana (THC) Screen Presumptive negative 01/29/19 03:22 Drugs of Abuse Note Disclamer 01/29/19 03:22 Active Medications - Current Medications Current Medications: Generic Name Dose Route Start Last Admin Trade Name Freq PRN Reason Stop Dose Admin Acetaminophen 650 mg 01/29/19 02:23 Tylenol PO Q4H PRN Pain MILD(1-3)/Fever >100.5/LYMAN Aspirin 81 mg 01/29/19 11:00 01/30/19 11:09 Baby Aspirin PO 81 mg QDAY RADHA Administration Atorvastatin Calcium 80 mg 01/29/19 22:00 01/29/19 22:45 Lipitor PO 80 mg QHS RADHA Administration Enoxaparin Sodium 40 mg 01/29/19 10:00 01/30/19 11:08 Enoxaparin SUB-Q 40 mg QDAY@1000 RADHA Administration Metoprolol Tartrate 12.5 mg 01/29/19 11:00 01/30/19 11:09 Metoprolol PO 12.5 mg BID RADHA Administration Ondansetron HCl 4 mg 01/29/19 02:23 Zofran IV Q8H PRN Nausea And Vomiting Oxycodone/Acetaminophen 1 tab 01/29/19 02:23 Percocet 5/325 PO Q6H PRN Pain, Moderate (4-6) Sodium Chloride 10 ml 01/29/19 10:00 01/30/19 11:09 Sodium Chloride Flush Syringe 10 Ml IV 10 ml BID RADHA Administration Sodium Chloride 10 ml 01/29/19 02:23 Sodium Chloride Flush Syringe 10 Ml IV PRN PRN LINE FLUSH
[2019-01-31] MEDS: ASPIRIN 81 MG TAB CHEW PO SCH (10:55)
[2019-01-31] MEDS: ENOXAPARIN 40 MG/0.4 ML INJ SUB-Q SCH (10:55)
[2019-01-31] MEDS: METOPROLOL TARTRATE 25 MG TAB PO SCH (10:56)
[2019-01-31 11:00] VITALS: BP 142/88
--- NOTE | 2019-01-31 11:26 | Progress Note ---
Assessment and Plan Atypical chest pain negative troponin; ECG is sinus rhythm with LVH no ischemia by MPI 11/2018 normal LVEF 55% by echo 10/2018 Hx of coronary artery disease with previous four-way coronary bypass in 2010, while he lived in [place]. Tobacco abuse Cocaine addition Hypertension Continue medical therapy for underlying coronary artery disease. Stable cardiac payton. Patient will follow up with [facility] February 07 at 310 pm once discharged. Subjective Date of service: 01/31/19 Interval history: Patient is admitted with atypical chest pain. Patient reports his chest pain has since resolved. Objective Vital Signs Temp Pulse Resp BP Pulse Ox 01/31/19 10:56 63 142/88 01/31/19 03:38 98.2 F 61 14 130/85 96 01/31/19 00:00 57 L 01/30/19 23:38 97 01/30/19 22:22 98.5 F 46 L 16 116/73 93 01/30/19 19:54 98.4 F 64 16 125/84 96 01/30/19 17:26 67 114/94 99 01/30/19 13:35 97.9 F 18 109/78 - Physical Examination General: No Apparent Distress HEENT: Positive: PERRL Neck: Positive: neck supple Cardiac: Positive: Reg Rate and Rhythm Lungs: Positive: Decreased Breath Sounds Neuro: Positive: Grossly Intact Abdomen: Positive: Soft Extremities: Absent: edema
--- NOTE | 2019-01-31 13:50 | Discharge Summary ---
Providers - Providers Date of Admission: 01/29/19 05:13 Date of discharge: 01/31/19 Attending physician: JOEL GORDON 01/29/19 02:23 Consult to Physician [CONS] Routine Comment: Consulting Provider: BECKI AKERS Physician Instructions: Reason For Exam: cp Primary care physician: FINANCIAL OPERATIONS CONSULTANT Hospitalization Reason for admission: atypical chest pain Condition: Fair Pertinent studies: Chest x-ray; no acute abnormality Hospital course: 68-year-old male patient with significant past medical history of coronary artery disease status post CABG 2010 hypertension COPD ongoing tobacco use cocaine use was admitted through emergency room with chest pain, as patient has significant history of coronary artery disease Patient was evaluated by ferryboat operator cable medications optimized Echocardiogram within normal limits no evidence of CHF 3 patient is comfortable pneumonia complaints vital signs stable Physical examination unremarkable Cleared by cardiology for discharge Patient follows with the Stable at discharge Discharge diagnosis -- Atypical Chest pain; Serial cardiac enzymes negative, EKG no acute ST-T changes Patient had a negative stress test 1 year ago, Cardiology evaluated, advised medical management follow-up with the ferryboat operator cable --History of coronary artery disease status post CABG and PCI x3 ; Continue current cardiac medications, stable cardiac payton --Cocaine abuse; advised to quit dictation abuse --Echocardiogram; normal ejection fraction 55%[] No evidence of congestive heart failure. CHF ruled out --Hypertension; well controlled On current management --History of COPD; stable --Ongoing tobacco use; smoking cessation counseling Nicotine patch as needed --Continue use; strongly advised to quit dictation drug use --DVT prophylaxis; Lovenox Patient advised to follow-up with ferryboat operator cable per schedule Cleared by cardiology for discharge. Stable at discharge . Disposition: DC-01 TO HOME OR SELFCARE Time spent for discharge: 32 min Core Measure Documentation - Palliative Care Palliative Care/ Comfort Measures: Not Applicable - Core Measures Any of the following diagnoses?: none Exam - Constitutional Vitals: Temp Pulse Resp BP Pulse Ox 98.2 F 63 16 142/88 98 01/31/19 03:38 01/31/19 10:56 01/31/19 10:00 01/31/19 10:56 01/31/19 10:00 General appearance: Present: no acute distress, well-nourished - EENT Eyes: Present: PERRL, EOM intact - Neck Neck: Present: supple, normal ROM - Respiratory Respiratory effort: normal Respiratory: bilateral: diminished, negative: rales, rhonchi, wheezing - Cardiovascular Rhythm: regular Heart Sounds: Present: S1 & S2 - Extremities Extremities: no ischemia, No edema, abnormal - Abdominal General gastrointestinal: Present: soft, non-tender, non-distended, normal bowel sounds - Integumentary Integumentary: Present: clear, warm - Musculoskeletal Musculoskeletal: strength equal bilaterally - Psychiatric Psychiatric: appropriate mood/affect, cooperative - Neurologic Neurologic: CNII-XII intact, moves all extremities Plan Activity: advance as tolerated Diet: other (cardiac diet) Special Instructions: smoking cessation Additional Instructions: Smoking cessation advised. Advised to quit cocaine use. Advised to comply with medications, diet and follow-up visit. If you have chest pain or shortness of breath contact M.D. or go to emergency room Follow up with: BECKI AKERS MD [Staff Physician] - 7 Days PRIMARY CARE, [Primary Care Provider] - 3-5 Days Prescriptions: Folic Acid [Folvite] 1 mg PO QDAY #30 tablet Nicotine [Habitrol] 21 mg TD QDAY PRN #30 patch PRN Reason: Smoking Cessation Aspirin EC [Halfprin EC] 81 mg PO DAILY #30 tablet levETIRAcetam [Keppra TAB] 500 mg PO BID #60 tablet AtorvaSTATin [Lipitor] 40 mg PO QHS #30 tablet Metoprolol [Lopressor TAB] 12.5 mg PO BID #60 tablet ALBUTEROL Inhaler (OR & NICU) [ProAir HFA Inhaler] 2 puff IH QID PRN #8.5 gram PRN Reason: Shortness Of Breath
== END 2019-01-31 15:59 | disposition home or self-care (01) | DRG 313 ==
LOC: ED 21:58 → INTOOBSV 01-29 05:13 → OBSVTOIN 01-29 05:13 → 4A 01-29 05:13
PROVIDERS: ADMIT Internal Medicine; ATTEND Internal Medicine
DX: R07.89 Other chest pain (principal); I50.32 Chronic diastolic (congestive) heart failure; F14.10 Cocaine abuse, uncomplicated; I25.10 Atherosclerotic heart disease of native coronary artery without angina pectoris; J44.9 Chronic obstructive pulmonary disease, unspecified; F12.90 Cannabis use, unspecified, uncomplicated; F17.210 Nicotine dependence, cigarettes, uncomplicated; F10.10 Alcohol abuse, uncomplicated; Y90.9 Presence of alcohol in blood, level not specified; I11.0 Hypertensive heart disease with heart failure; Z95.1 Presence of aortocoronary bypass graft; Z95.5 Presence of coronary angioplasty implant and graft; I25.2 Old myocardial infarction; Z79.82 Long term (current) use of aspirin; Z79.899 Other long term (current) drug therapy; Z79.51 Long term (current) use of inhaled steroids; Z91.030 Bee allergy status; Z91.041 Radiographic dye allergy status; Z71.6 Tobacco abuse counseling; Z71.41 Alcohol abuse counseling and surveillance of alcoholic; Z71.51 Drug abuse counseling and surveillance of drug abuser
CPT/HCPCS: 36415; 71045; 80048; 80307; 81001; 82550; 82553; 84484; 85007; 85025; 93005; 93010; G0378; A9270-GY; J1650

== ENCOUNTER 2019-06-30 17:27 | Emergency (ER) | payer SELFPAY ==
--- NOTE | 2019-06-30 18:03 | XRay Report ---
CHEST 1 VIEW 6:00 PM INDICATION / CLINICAL INFORMATION: Chest Pain. COMPARISON: 01/28/2019. FINDINGS: SUPPORT DEVICES: None. HEART / MEDIASTINUM: Median sternotomy. Normal heart size and pulmonary vasculature. The aorta is nor mal in caliber. LUNGS / PLEURA: No significant pulmonary or pleural abnormality. No pneumothorax. ADDITIONAL FINDINGS: No significant additional findings. IMPRESSION: No acute abnormality or significant change. Signer Name: Kyler Cuellar MD Signed: 06/30/2019 5:59 PM Workstation Name: [id number]
[2019-06-30 18:12] LABS: Hematocrit 45.5 % (35.5-45.6); Hemoglobin 15.2 gm/dl (11.8-15.2); Mean Corpuscular HGB Conc 34 % (32-34); Mean Corpuscular Volume 88 fl (84-94); Platelet Count 196 K/mm3 (140-440); Red Blood Count 5.19 M/mm3 (3.65-5.03)
[2019-06-30 18:28] LABS: BUN/Creatinine Ratio 14; Blood Urea Nitrogen 17 mg/dL (9-20); Calcium 9.9 mg/dL (8.4-10.2); Hemolysis Index 28
[2019-06-30 18:48] LABS: Giant Platelets 1+; Target Cells 1+; Total Cells Counted 100
[2019-06-30 20:42] LABS: Bilirubin,Urine NEG (Negative); Blood,Urine NEG (Negative); Color,Urine Yellow (Yellow); Mucus,Urine FEW /HPF; Protein,Urine <15 mg/dL mg/dL (Negative); WBC,Urine < 1.0 /HPF (0.0-6.0)
--- NOTE | 2019-06-30 20:50 | Emergency Department Report ---
ED General Adult HPI - General Chief complaint: Dyspnea/Respdistress Stated complaint: ABD PAIN/SOB/HEADACHE PUI?: Yes Time Seen by Provider: 06/30/19 20:36 Source: patient Mode of arrival: Ambulatory Limitations: No Limitations - History of Present Illness Initial comments: Patient is a 68-year-old male that presents emergency room with multiple complaints. Patient states he is homeless. Patient states he could not get to his primary care at the [place]. Patient states that he is having abdominal pain, shortness of breath, diarrhea, dysuria, fever, runny nose, productive cough. Patient denies chest pain. Patient states that his fever has been low-grade. Patient states he has not taken any medications for his symptoms. Patient states his symptoms started 3 days ago. Patient states his symptoms are better with rest and worse with movement. Patient states that the abdominal pain is in his lower abdomen. Patient states it is a 7 out of 10. Patient states that it is a aching sensation. Patient denies nausea vomiting. -: Sudden - Related Data Previous Rx's Medication Instructions Recorded Last Taken Type Multivitamin Tab [Multiple Vitamin 1 each PO QDAY #30 tablet 02/15/18 Unknown Rx TAB (Theragran)] Thiamine [Vitamin B-1] 100 mg PO QDAY #30 tablet 02/15/18 Unknown Rx Nystas/Diphen/Xyl Visc/Mylanta 30 ml MM BID PRN #1 udc 07/25/18 Unknown Rx [Magic Mouthwash] Meclizine [Antivert] 25 mg PO Q8H PRN #30 tablet 11/24/18 Unknown Rx Nitroglycerin (Nf) [Nitrostat] 0.3 mg SL Q5MIN PRN #30 tablet 01/27/19 Unknown Rx Albuterol INH(or & Nicu Only) 2 puff IH QID PRN #8.5 gram 01/31/19 Unknown Rx [ProAir HFA Inhaler] Aspirin EC [Halfprin EC] 81 mg PO DAILY #30 tablet 01/31/19 Unknown Rx AtorvaSTATin [Lipitor] 40 mg PO QHS #30 tablet 01/31/19 Unknown Rx Folic Acid [Folvite] 1 mg PO QDAY #30 tablet 01/31/19 Unknown Rx Metoprolol [Lopressor TAB] 12.5 mg PO BID #60 tablet 01/31/19 Unknown Rx Nicotine [Habitrol] 21 mg TD QDAY PRN #30 patch 01/31/19 Unknown Rx levETIRAcetam [Keppra TAB] 500 mg PO BID #60 tablet 01/31/19 Unknown Rx Allergies Allergy/AdvReac Type Severity Reaction Status Date / Time bee venom protein (honey bee) Allergy Shortness Verified 07/25/18 01:25 of Breath iv contrast Allergy Shortness Uncoded 06/26/17 17:46 of Breath ED Review of Systems ROS: Stated complaint: ABD PAIN/SOB/HEADACHE Other details as noted in HPI Constitutional: chills, fever Eyes: denies: eye pain, eye discharge, vision change ENT: denies: ear pain, throat pain Respiratory: cough, shortness of breath. denies: wheezing Cardiovascular: denies: chest pain, palpitations Endocrine: no symptoms reported Gastrointestinal: abdominal pain, diarrhea. denies: nausea, vomiting Genitourinary: dysuria. denies: urgency Musculoskeletal: denies: back pain, joint swelling, arthralgia Skin: denies: rash, lesions Neurological: denies: headache, weakness, paresthesias Psychiatric: denies: anxiety, depression Hematological/Lymphatic: denies: easy bleeding, easy bruising ED Past Medical Hx - Past Medical History Previous Medical History?: Yes Hx Hypertension: Yes Hx Heart Attack/AMI: Yes Hx Congestive Heart Failure: Yes Hx COPD: Yes - Surgical History Past Surgical History?: Yes Hx Coronary Stent: Yes (2013) Hx Open Heart Surgery: Yes (2012) Additional Surgical History: heart bypass with 3 stents, - Social History Smoking Status: Current Every Day Smoker Substance Use Type: None - Medications Home Medications: Home Medications Medication Instructions Recorded Confirmed Last Taken Type Multivitamin Tab [Multiple Vitamin 1 each PO QDAY #30 tablet 02/15/18 01/29/19 Unknown Rx TAB (Theragran)] Thiamine [Vitamin B-1] 100 mg PO QDAY #30 tablet 02/15/18 01/29/19 Unknown Rx Nystas/Diphen/Xyl Visc/Mylanta 30 ml MM BID PRN #1 udc 07/25/18 01/29/19 Unknown Rx [Magic Mouthwash] Meclizine [Antivert] 25 mg PO Q8H PRN #30 tablet 11/24/18 01/29/19 Unknown Rx Nitroglycerin (Nf) [Nitrostat] 0.3 mg SL Q5MIN PRN #30 tablet 01/27/19 01/29/19 Unknown Rx Albuterol INH(or & Nicu Only) 2 puff IH QID PRN #8.5 gram 01/31/19 Unknown Rx [ProAir HFA Inhaler] Aspirin EC [Halfprin EC] 81 mg PO DAILY #30 tablet 01/31/19 Unknown Rx AtorvaSTATin [Lipitor] 40 mg PO QHS #30 tablet 01/31/19 Unknown Rx Folic Acid [Folvite] 1 mg PO QDAY #30 tablet 01/31/19 Unknown Rx Metoprolol [Lopressor TAB] 12.5 mg PO BID #60 tablet 01/31/19 Unknown Rx Nicotine [Habitrol] 21 mg TD QDAY PRN #30 patch 01/31/19 Unknown Rx levETIRAcetam [Keppra TAB] 500 mg PO BID #60 tablet 01/31/19 Unknown Rx ED Physical Exam - General Limitations: No Limitations General appearance: alert, in no apparent distress - Head Head exam: Present: atraumatic, normocephalic - Eye Eye exam: Present: normal appearance - ENT ENT exam: Present: mucous membranes moist - Neck Neck exam: Present: normal inspection - Respiratory Respiratory exam: Present: normal lung sounds bilaterally. Absent: respiratory distress, wheezes, rales - Cardiovascular Cardiovascular Exam: Present: regular rate, normal rhythm. Absent: systolic murmur, diastolic murmur, rubs, gallop - GI/Abdominal GI/Abdominal exam: Present: soft, normal bowel sounds. Absent: distended, tenderness, guarding - Rectal Rectal exam: Present: deferred - Extremities Exam Extremities exam: Present: normal inspection - Back Exam Back exam: Present: normal inspection - Neurological Exam Neurological exam: Present: alert, oriented X3 - Psychiatric Psychiatric exam: Present: normal affect, normal mood - Skin Skin exam: Present: warm, dry, intact, normal color. Absent: rash ED Course Vital Signs 06/30/19 06/30/19 06/30/19 17:35 19:31 22:55 Temperature 98.0 F Pulse Rate 86 77 79 Respiratory 20 16 17 Rate Blood Pressure 139/96 Blood Pressure 128/82 145/69 [Right] O2 Sat by Pulse 97 100 99 Oximetry 07/01/19 00:00 Temperature Pulse Rate Respiratory 16 Rate Blood Pressure Blood Pressure [Right] O2 Sat by Pulse 99 Oximetry - Reevaluation(s) Reevaluation #1: I discussed all results and clinical findings with patient. I discussed plan of care with patient. Patient agrees with plan of care. Patient is stable for discharge. Patient will be discharged home. Patient given discharge instructions. Patient voiced understanding of discharge instructions. 07/01/19 00:10 ED Medical Decision Making - Lab Data Result diagrams: 06/30/19 18:03 06/30/19 18:03 - Radiology Data Radiology results: report reviewed, image reviewed interpreted by me: CHEST 1 VIEW 6:00 PM INDICATION / CLINICAL INFORMATION: Chest Pain. COMPARISON: 01/28/2019. FINDINGS: SUPPORT DEVICES: None. HEART / MEDIASTINUM: Median sternotomy. Normal heart size and pulmonary vasculature. The aorta is normal in caliber. LUNGS / PLEURA: No significant pulmonary or pleural abnormality. No pneumothorax. ADDITIONAL FINDINGS: No significant additional findings. IMPRESSION: No acute abnormality or significant change. CT OF THE ABDOMEN AND PELVIS WITHOUT CONTRAST INDICATION / CLINICAL INFORMATION: Abdominal pain. TECHNIQUE: All CT scans at this location are performed using CT dose reduction for ALARA by means of automated exposure control. COMPARISON: None available. FINDINGS: ABDOMEN: The gallbladder is not well seen but may just be contracted. The liver, spleen, bile ducts, pancreas, adrenal glands, kidneys and bowel demonstrate no significant abnormality. There are moderately severe atherosclerotic calcifications involving the abdominal aorta and its branches without aneurysm. No adenopathy is seen. There is mild bibasilar subsegmental atelectasis. PELVIS: The distal ureters, urinary bladder and prostate gland are normal. There are tiny fat- containing inguinal hernias bilaterally without complication. A normal appendix is present and there is no evidence of diverticulitis. No abnormal mass or fluid collection is seen. There is mild spondylosis. IMPRESSION: No acute abnormality is identified. - Medical Decision Making Patient is a 68-year-old male that presents for multiple complaints. Patient complains abdominal pain, dysuria, diarrhea, fever, cough and shortness of rusty ath. Patient's clinical findings are consistent with a suspected Kopit infection. Patient's chest x-ray was negative for acute findings. Patient's abdominal CT was negative for acute findings. Patient's labs were unremarkable. Patient's vital signs were stable. Patient did not show any signs of hypoxia. Patient ambulated in the ER without difficulty and did not become hypoxic. Patient stable for discharge. Patient discharged home. Patient given discharge instructions. Patient given COVID quarantine regulations and instructions. Patient's labs were unremarkable and his cardiac enzymes were negative x3. Flu and strep negative - Differential Diagnosis Shortness of breath, cough, fever, COVID, pneumonia, abdominal pain, Critical care attestation.: If time is entered above; I have spent that time in minutes in the direct care of this critically ill patient, excluding procedure time. ED Disposition Clinical Impression: Suspected COVID-19 virus infection, Shortness of breath Abdominal pain Qualifiers: Abdominal location: lower abdomen, unspecified Qualified Code(s): R10.30 - Lower abdominal pain, unspecified Fever Qualifiers: Fever type: unspecified Qualified Code(s): R50.9 - Fever, unspecified Diarrhea Qualifiers: Diarrhea type: unspecified type Qualified Code(s): R19.7 - Diarrhea, unspecified Disposition: TO HOME OR SELFCARE Is pt being admited?: No Does the pt Need Aspirin: No Condition: Stable Instructions: COVID-19, Abdominal Pain (ED) Additional Instructions: Patient to self quarantine for 14 days. Patient to contact the local health department and a testing site for a COVID test. Patient to increase water. Patient to only take Tylenol. Patient to avoid ibuprofen. Patient to return to the ER if condition worsens. Patient to return if shortness of breath or fever worsens. Patient to follow-up with primary care in 2 to 3 days. Patient to follow-up with health department in 2 to 3 days. Patient to rest. Patient to increase water. Patient to take Tylenol as needed for pain. Patient to return to the ER if condition worsens, changes or new symptoms arise. Referrals: PRIMARY CARE, [Primary Care Provider] - 2-3 Days Time of Disposition: 00:12
[2019-06-30 21:41] LABS: Creatine Kinase MB 2.6 ng/mL (0.0-4.0)
--- NOTE | 2019-06-30 21:50 | Cat Scan Report ---
CT OF THE ABDOMEN AND PELVIS WITHOUT CONTRAST INDICATION / CLINICAL INFORMATION: Abdominal pain. TECHNIQUE: All CT scans at this location are performed using CT dose reduction for ALARA by means of automated e xposure control. COMPARISON: None available. FINDINGS: ABDOMEN: The gallbladder is not well seen but may just be contracted. The liver, spleen, bile ducts, pancreas, adrenal glands, kidneys and bowel demonstrate no significant abnormality. There are moderat gisela severe atherosclerotic calcifications involving the abdominal aorta and its branches without aneu rysm. No adenopathy is seen. There is mild bibasilar subsegmental atelectasis. PELVIS: The distal ureters, urinary bladder and prostate gland are normal. There are tiny fat-contain ing inguinal hernias bilaterally without complication. A normal appendix is present and there is no e vidence of diverticulitis. No abnormal mass or fluid collection is seen. There is mild spondylosis. IMPRESSION: No acute abnormality is identified. Signer Name: Kyler Cuellar MD Signed: 06/30/2019 9:46 PM Workstation Name: [id number]
[2019-06-30 22:56] VITALS: BP 145/69
== END 2019-07-01 00:35 | disposition home or self-care (01) ==
LOC: ED 17:27
DX: R19.7 Diarrhea, unspecified (principal); R06.02 Shortness of breath; R10.30 Lower abdominal pain, unspecified; R50.9 Fever, unspecified; Z20.828 Contact with and (suspected) exposure to other viral communicable diseases
CPT/HCPCS: 36415; 71045; 74176; 80048; 81001; 82140; 82550; 82553; 84484; 85007; 85025; 87116; 87400; 87430; 93005

== ENCOUNTER 2019-08-27 10:41 | Emergency (ER) | payer MEDICARE, SELFPAY ==
[2019-08-27] MEDS ORDERED: ASPIRIN 325 MG TAB PO ONE (10:57)
[2019-08-27] MEDS ORDERED: SODIUM CHLORIDE 0.9% 1000 ML 1,000 ML IV ONE (11:24)
--- NOTE | 2019-08-27 11:27 | XRay Report ---
CHEST 1 VIEW 08/27/2019 10:20 AM INDICATION / CLINICAL INFORMATION: Chest Pain. COMPARISON: Chest x-ray on 06/30/2019. FINDINGS: SUPPORT DEVICES: None. HEART / MEDIASTINUM: Previous median sternotomy and CABG. LUNGS / PLEURA: No significant pulmonary or pleural abnormality. No pneumothorax. ADDITIONAL FINDINGS: No significant additional findings. IMPRESSION: 1. No acute findings. Signer Name: Shamir Rodas MD Signed: 08/27/2019 11:22 AM Workstation Name: [id number]
[2019-08-27 11:33] LABS: Basophils # (Auto) 0.1 K/mm3 (0.0-0.1); Basophils % (Auto) 1.5 % (0.0-1.8); Eosinophils % (Auto) 0.2 % (0.0-4.3); Hematocrit 49.1 % (35.5-45.6); Hemoglobin 16.3 gm/dl (11.8-15.2); Lymphocytes # (Auto) 1.9 K/mm3 (1.2-5.4); Lymphocytes % (Auto) 30.7 % (13.4-35.0); Mean Corpuscular HGB Conc 33 % (32-34); Mean Corpuscular Volume 87 fl (84-94); Monocytes # (Auto) 0.7 K/mm3 (0.0-0.8); Monocytes % (Auto) 11.9 % (0.0-7.3); Platelet Count 192 K/mm3 (140-440); Red Blood Count 5.62 M/mm3 (3.65-5.03); Red Cell Distribution Width 13.7 % (13.2-15.2)
[2019-08-27 11:48] LABS: BUN/Creatinine Ratio 12; Blood Urea Nitrogen 14 mg/dL (9-20); Calcium 10.1 mg/dL (8.4-10.2); Hemolysis Index 5
[2019-08-27 12:25] VITALS: BP 140/92
--- NOTE | 2019-08-27 13:35 | Emergency Department Report ---
ED Chest Pain HPI - General Chief Complaint: Chest Pain Stated Complaint: CHEST PALPATIONS Time Seen by Provider: 08/27/19 11:09 Source: patient, EMS Mode of arrival: Stretcher Limitations: No Limitations - History of Present Illness Initial Comments: This is a 69-year-old -[place] male presents to the emergency department with a complaint of some intermittent midsternal chest pains and palpitations that started after the patient was "partying a little too hard over the weekend." By partying the patient means that he was drinking alcohol and using crack cocaine. He denies any shortness of breath, nausea, vomiting, fever or diaphoresis. He has not taken anything for symptoms prior to presentation. The patient has a past medical history that includes CHF, COPD, hypertension, coronary artery disease with a triple bypass and 2 cardiac stents. He does not have a primary care physician or project manager interior design. No recent travel or sick contac ts at home. He is a tobacco smoker. - Related Data Previous Rx's Medication Instructions Recorded Last Taken Type Multivitamin Tab [Multiple Vitamin 1 each PO QDAY #30 tablet 02/15/18 Unknown Rx TAB (Theragran)] Thiamine [Vitamin B-1] 100 mg PO QDAY #30 tablet 02/15/18 Unknown Rx Nystas/Diphen/Xyl Visc/Mylanta 30 ml MM BID PRN #1 udc 07/25/18 Unknown Rx [Magic Mouthwash] Meclizine [Antivert] 25 mg PO Q8H PRN #30 tablet 11/24/18 Unknown Rx Nitroglycerin (Nf) [Nitrostat] 0.3 mg SL Q5MIN PRN #30 tablet 01/27/19 Unknown Rx Albuterol INH(or & Nicu Only) 2 puff IH QID PRN #8.5 gram 01/31/19 Unknown Rx [ProAir HFA Inhaler] Aspirin EC [Halfprin EC] 81 mg PO DAILY #30 tablet 01/31/19 Unknown Rx AtorvaSTATin [Lipitor] 40 mg PO QHS #30 tablet 01/31/19 Unknown Rx Folic Acid [Folvite] 1 mg PO QDAY #30 tablet 01/31/19 Unknown Rx Metoprolol [Lopressor TAB] 12.5 mg PO BID #60 tablet 01/31/19 Unknown Rx Nicotine [Habitrol] 21 mg TD QDAY PRN #30 patch 01/31/19 Unknown Rx levETIRAcetam [Keppra TAB] 500 mg PO BID #60 tablet 01/31/19 Unknown Rx Allergies Allergy/AdvReac Type Severity Reaction Status Date / Time bee venom protein (honey bee) Allergy Shortness Verified 07/25/18 01:25 of Breath iv contrast Allergy Shortness Uncoded 06/26/17 17:46 of Breath Heart Score - HEART Score History: Slightly suspicious EKG: Non-specific Age: > 65 Risk factors: > 3 risk factors or hx of atherosclerotic disease Troponin: < normal limit HEART Score: 5 - Critical Actions Critical Actions: 4-6 pts:12-16.6% risk of adverse cardiac event. Should be admitted ED Review of Systems ROS: Stated complaint: CHEST PALPATIONS Other details as noted in HPI Comment: All other systems reviewed and negative Constitutional: denies: chills, fever Eyes: denies: eye pain, vision change ENT: denies: ear pain, throat pain Respiratory: denies: cough, shortness of breath Cardiovascular: chest pain, palpitations Gastrointestinal: denies: abdominal pain, vomiting Genitourinary: denies: dysuria, discharge Musculoskeletal: denies: back pain, arthralgia Skin: denies: rash, lesions Neurological: denies: headache, weakness ED Past Medical Hx - Past Medical History Previous Medical History?: Yes Hx Hypertension: Yes Hx Heart Attack/AMI: Yes Hx Congestive Heart Failure: Yes Hx COPD: Yes - Surgical History Past Surgical History?: Yes Hx Coronary Stent: Yes (2013) Hx Open Heart Surgery: Yes (2012) Additional Surgical History: heart bypass with 3 stents, - Social History Smoking Status: Current Every Day Smoker Substance Use Type: Cocaine - Medications Home Medications: Home Medications Medication Instructions Recorded Confirmed Last Taken Type Multivitamin Tab [Multiple Vitamin 1 each PO QDAY #30 tablet 02/15/18 01/29/19 Unknown Rx TAB (Theragran)] Thiamine [Vitamin B-1] 100 mg PO QDAY #30 tablet 02/15/18 01/29/19 Unknown Rx Nystas/Diphen/Xyl Visc/Mylanta 30 ml MM BID PRN #1 udc 07/25/18 01/29/19 Unknown Rx [Magic Mouthwash] Meclizine [Antivert] 25 mg PO Q8H PRN #30 tablet 11/24/18 01/29/19 Unknown Rx Nitroglycerin (Nf) [Nitrostat] 0.3 mg SL Q5MIN PRN #30 tablet 01/27/19 01/29/19 Unknown Rx Albuterol INH(or & Nicu Only) 2 puff IH QID PRN #8.5 gram 01/31/19 Unknown Rx [ProAir HFA Inhaler] Aspirin EC [Halfprin EC] 81 mg PO DAILY #30 tablet 01/31/19 Unknown Rx AtorvaSTATin [Lipitor] 40 mg PO QHS #30 tablet 01/31/19 Unknown Rx Folic Acid [Folvite] 1 mg PO QDAY #30 tablet 01/31/19 Unknown Rx Metoprolol [Lopressor TAB] 12.5 mg PO BID #60 tablet 01/31/19 Unknown Rx Nicotine [Habitrol] 21 mg TD QDAY PRN #30 patch 01/31/19 Unknown Rx levETIRAcetam [Keppra TAB] 500 mg PO BID #60 tablet 01/31/19 Unknown Rx ED Physical Exam - General Limitations: No Limitations - Other Other exam information: GENERAL: The patient is well-developed well-nourished. HENT: Normocephalic. Atraumatic. Patient has moist mucous membranes. EYES: Extraocular motions are intact. NECK: Supple. Trachea is midline. CHEST/LUNGS: Clear to auscultation. There is no respiratory distress noted. HEART/CARDIOVASCULAR: Regular. There is mild tachycardia. There is no murmur. ABDOMEN: Abdomen is soft, nontender. Patient has normal bowel sounds. SKIN: Skin is warm and dry. NEURO: The patient is awake, alert, and cooperative. The patient has no focal neurologic deficits. Normal speech. MUSCULOSKELETAL: There is no tenderness or deformity. There is no limitation range of motion. ED Course Vital Signs 08/27/19 08/27/19 08/27/19 10:46 10:47 10:48 Temperature 99.6 F Pulse Rate 95 H 101 H 93 H Respiratory 11 L 16 13 Rate Blood Pressure 159/106 Blood Pressure [Left] O2 Sat by Pulse 96 100 Oximetry 08/27/19 08/27/19 08/27/19 10:49 10:50 10:52 Temperature Pulse Rate 93 H 102 H 92 H Respiratory 24 17 17 Rate Blood Pressure 159/106 159/106 159/106 Blood Pressure [Left] O2 Sat by Pulse 91 95 95 Oximetry 08/27/19 08/27/19 08/27/19 10:54 10:56 12:24 Temperature Pulse Rate 95 H 92 H 97 H Respiratory 19 21 20 Rate Blood Pressure 159/106 159/106 Blood Pressure 140/92 [Left] O2 Sat by Pulse 96 94 97 Oximetry 08/27/19 13:00 Temperature Pulse Rate Respiratory 18 Rate Blood Pressure Blood Pressure [Left] O2 Sat by Pulse Oximetry NEEL score - Neel Score Age > 65: (1) Yes Aspirin use within the Past 7 Days: (0) No 3 or more CAD Risk Factors: (1) Yes 2 or more Angina events in past 24 hrs: (1) Yes Known CAD with more than 50% Stenosis: (1) Yes Elevated Cardiac Markers: (0) No ST Deviation Greater than 0.5mm: (0) No NEEL Score: 4 ED Medical Decision Making - Lab Data Result diagrams: 08/27/19 11:02 08/27/19 11:02 - EKG Data -: EKG Interpreted by Me EKG shows normal: sinus rhythm (Bigeminy), axis, intervals, QRS complexes (LVH), ST-T waves (Nonspecific T waves) Rate: normal - EKG Data When compared to previous EKG there are: no significant change Interpretation: unchanged when compared t (06/30/19) - Radiology Data Radiology results: image reviewed interpreted by me: Chest x-ray does not show any acute process. There are no pleural effusions, obvious pneumonia and there is no pneumothorax. - Medical Decision Making This patient presents to the emergency department with a complaint of chest pain and palpitations after he was using crack cocaine over the past few days. EKG does not show any morphology consistent with ST elevation IA. Chest x-ray does not show any pneumonia, pleural effusions, or any other acute process. Renny farooq's labs have been unremarkable thus far including a negative troponin and negative d-dimer. I discussed with the patient the need for a second troponin and we discussed the possibility of admission secondary to his continued chest pain and history of coronary artery disease. However the patient is fixated on the fact that he thinks his motel door is open and his possessions will be stolen. I explained the importance of taking care of his health and wellbeing above all but the patient disagrees. He understands the risks of leaving at this time could include increased pain, myocardial infarction, disability or even . He is awake, alert, oriented and has a normal decision-making capacity. Therefore, despite knowing the risks, the patient has signed out AGAINST MEDICAL ADVICE. He understands that he can return to the emergency department at any time if he would like to continue his evaluation or with any acute distress. He has been given a referral for cardiology. Critical Care Time: No Critical care attestation.: If time is entered above; I have spent that time in minutes in the direct care of this critically ill patient, excluding procedure time. ED Disposition Clinical Impression: Cocaine abuse, Palpitations Chest pain Qualifiers: Chest pain type: unspecified Qualified Code(s): R07.9 - Chest pain, unspecified Disposition: -07 LEFT AGAINST MED ADVICE Is pt being admited?: No Condition: Stable Instructions: Chest Pain (ED), Palpitations (ED) Additional Instructions: Please return to the emergency department immediately if you change your mind about further evaluation, or with any acute distress. I am giving you a referral for a local project manager interior design, Dr. Bauman, to follow-up regarding your recent chest pain and palpitations. Please try and quit smoking. Please avoid any further crack cocaine or illicit drug use. Referrals: PRIMARY CARE, [Primary Care Provider] - 2-3 Days LYLA BAUMAN MD [Staff Physician] - 2-3 Days Forms: AMA Form Time of Disposition: 13:34
== END 2019-08-27 13:58 | disposition left against medical advice (07) ==
LOC: ED 10:41
DX: F14.10 Cocaine abuse, uncomplicated (principal); R00.2 Palpitations; R07.89 Other chest pain; I11.0 Hypertensive heart disease with heart failure; I50.9 Heart failure, unspecified; I25.2 Old myocardial infarction; J44.9 Chronic obstructive pulmonary disease, unspecified; F17.200 Nicotine dependence, unspecified, uncomplicated; Z98.890 Other specified postprocedural states; Z79.82 Long term (current) use of aspirin; Z79.899 Other long term (current) drug therapy; Z91.030 Bee allergy status; Z91.041 Radiographic dye allergy status
CPT/HCPCS: 36415; 71045; 80048; 84484; 85025; 85379; 93005; 99285; J7030